=== PATIENT | female | born 1935 | race Caucasian/White ===

== ENCOUNTER 2024-10-31 08:25 | Inpatient (IN) | payer OTHER, SELFPAY ==
[2024-10-29] VITALS (8 sets, daily range): BP systolic 105–135; BP diastolic 51–63
--- NOTE | 2024-10-29 18:44 | ED.GENMED ---
History of Present Illness
General
Chief Complaint: Chest Pain
Source: patient
Exam Limitations: none
Time Seen by Provider: 10/29/24 18:20
Nursing documentation reviewed up to this point in time: agreed with
History of Present Illness
History of Present Illness:
[facility] secondary to sudden onset of chest pain while watching TV this afternoon. Chest pain described as left-sided, pressure-like, nonradiating, without any alleviating or exacerbating factors. Patient states that
her chest pain gradually improved. When medics arrived, patient was given aspirin and nitroglycerin sublingual x 1. Patient unsure if her chest pain had already resolved by the time she received the medication. Denies trauma. Denies recent
illness. Denies recent travel or surgery. Denies back pain. Denies leg pain or swelling. Denies previous history of similar chest pain. Of note, patient states that her 'heart stopped', shortly after hip surgery number of years ago.
Review of Systems
Review of Systems
Allergies reviewed?: Yes
All Other Systems: ROS reviewed and negative except as documented in HPI and ROS
Constitutional: Reports no symptoms
EENT: Reports no symptoms
Respiratory: Reports no symptoms; Denies trouble breathing
Cardiac: Reports chest pain; Denies diaphoresis or palpitations
ABD/GI: Reports no symptoms; Denies vomiting
Musculoskeletal: Reports no symptoms
Skin: Reports no symptoms
Neurological: Reports no symptoms
Phy Exam
Physical Exam
Physical Exam:
Physical Exam
General: no apparent distress, not acutely ill. afebrile
Head: nc/at. eomi
Neck: supple. no meningeal signs.
Heart: s1/s2 regular rate and rhythm
Lungs: no acute respiratory distress. clear bilaterally. chest wall nontender to palpation
Abdomen: normal bowel sounds. not tender.
Neuro: alert and oriented x 3. no focal neurological deficits
Skin: no rash
Psychiatric: well kept. interactive and cooperative
Extremities: no edema. no calf tenderness.
Scores
Heart Score for Chest Pain Patients
STEMI patient?: No
History: Slightly or Non-Suspicious
ECG: Normal
Age: >/= 65 years
Risk Factors: >/= 3 Risk Factors or History of CAD
Troponin: </= Normal Limit
Heart Score for Chest Pain Patients: 4
Heart Score Risk: 20.3% MACE over next 6 weeks
Course
Orders/Labs/Results
Orders:
Orders
10/29/24 17:50
Electrocardiogram (*1) Urgent
Reason for Study: Chest Pain
EKG- Treatment ONCE
10/29/24 18:43
CR Chest - 2 Views Urgent
Comment:
Reason For Exam: cp
10/29/24 19:19
Complete Blood Count/With Diff Urgent
Comprehensive Metabolic Panel Urgent
D-Dimer Urgent
Troponin I Urgent
10/29/24 22:41
Sodium Zirconium Cyclosilicate [Lokelma] 10 gram PO NOW STA
10/29/24 23:00
Flush (0.9% Sodium Chloride) [Flush (Nss)] See Dose Instructions IV PER PROTOCOL
10/29/24 23:59
CARDIOLOGY CONSULT Routine
Consulting Provider: Faye Ramsay
Was physician already notified: No
Reason for consult: chest pain ekg changes
10/30/24 00:00
Admit/Transfer Patient As Directed
Co-Sign Provider:
Level of Care: Observation services
Assign to:: Telemetry
Physician / Group: shagufta dawson
Diagnosis: chest pain unclear, hyperk,ckd3b
Reason for Telemetry: Arrhythmia
Date to Stop Telemetry: 11/02/24
Time to Stop Telemetry: 11:00
Reason for Hospitalization: chest pain unclear, hyperk,ckd3b
Consult Notification Routine
Specialty to Notify: Cardiology
Date consulting provider notified: 10/30/24
Time consulting provider notified: 08:15
Notified:: Provider
Comment: FAYE RAMSAY
WOUND/OSTOMY CONSULT Routine
Reason for Consult: DTI on sacrum
10/30/24 00:01
Code Status As Directed
Resuscitation Status: Do not resuscitate
Reached after discussion with pt or family/Healthcare POA: Yes
Decision communicated with: Per patient
10/30/24 00:03
DNR Bracelet Application ONCE
10/30/24 00:07
PRN Pain Medication Management As Directed
May give lesser potent ordered pain med per pt: Yes
preference::
Protocol:: Medication orders for pain may be administered in a
manner that supports deferring to patient preference
when the pt is:
- Requesting an ordered lesser potent pain medication.
Least to most potent pain medications are defined
as: acetaminophen < NSAID < tramadol < opioids
(morphine, oxycodone, hydromorphone).
- Requesting a lesser dose of the same medication IF
ORDERED.
- Requesting a less intrusive route of administration
if both routes are prescribed by the provider (PO <
IV).
10/30/24 01:35
Acetaminophen [Tylenol] 650 mg PO Q6HPRN PRN
Nitroglycerin Sublingual [Nitrostat (Sublingual)] 0.4 mg SL [id number] PRN
10/30/24 01:35
Activity As Directed
Activity Level: With Assistance
Comment: Uses walker and rollator
Intake/ Output As Directed
Frequency: Per unit guidelines
Old Records Request [Obtain Records] As Directed
Dates of Information to be Released: 2023 present
Type of Information Requested: Discharge Summary
Consults
Radiology Results
Lab Results
H&P
Obtain Records from: [facility]
Vital Signs As Directed
Frequency: Per unit guidelines
Weight As Directed
Frequency: Daily
Pulse Ox/spot Check [RESP] Routine
Quantity: 1
Pt Eval And Treat Routine
Activity Level: With Assistance
DX Deep Vein Thrombosis Video Routine
10/30/24 01:55
Pt Screening Request from Latasha Routine
10/30/24 06:00
EKG [Electrocardiogram (*1)] Urgent
Reason for Study: Abnormal EKG
Echo 2D MMode Color/Doppler IN AM
Reason for Study: chest pain
Cholesterol Lowering
At Your Request: Limited Participation
Cholesterol Lowering: Sodium, 2 Gram
Levothyroxine [Synthroid] 100 mcg PO DAILY @ 0600
10/30/24 06:10
Diphenhydramine [Benadryl] 6.25 mg IV NOW STA
10/30/24 06:42
Cardiovascular Evaluation IN AM
Complete Blood Count/With Diff IN AM
Comprehensive Metabolic Panel IN AM
Cortisol, Random IN AM
Free T4 Routine
Magnesium IN AM
NT-proBNP IN AM
Phos [Phosphorus] IN AM
TSH Reflex To Free T4 IN AM
Troponin I IN AM
10/30/24 08:00
Aspirin Low Dose EC [Aspir Low (Enteric Coated)] 81 mg PO DAILY
Heparin 5,000 units SC Q12
Midodrine [ProAmatine] 5 mg PO BID AT 0800,1700
Polyethylene Glycol Powder [Miralax] 17 grams PO DAILY
Prednisone [Deltasone] 2.5 mg PO DAILY
10/30/24 09:17
STOOL [C difficile Antigen & Toxins] Routine
LESLEE Source: Feces/Stool
Specimen Description:
Date Specimen was Collected: 10/30/24
Time Specimen was Collected: 09:13
Stool Culture Routine
LESLEE Source: Feces/Stool
Specimen Description:
Date Specimen was Collected: 06/26/25
Time Specimen was Collected: 09:13
Stool For WBC Routine
LESLEE Source: Feces/Stool
Specimen Description:
Date Specimen was Collected: 10/30/24
Time Specimen was Collected: 09:13
10/30/24 09:18
MRSA Screen Routine
LESLEE Source: Nose
Specimen Description:
10/30/24 11:11
Wound Care As Directed
Location of Wound: Buttocks/Sacrum
Treatment of Wound: Barrier ointment with incontinence care.
10/30/24 11:14
Specialty Mattress As Directed
Type of Mattress: Static air overlay
10/30/24 12:00
Petrolatum/Mineral Oil [Hydrophor] See Dose Instructions TOPICAL DAILY
10/30/24 13:26
Loperamide [Imodium] 2 mg PO NOW STA
10/30/24 13:27
CT Chest PE Study Urgent
Comment:
Reason For Exam: Chest pain, RV strain on ECHO/ECG
10/30/24 14:14
Troponin I Q6H
10/30/24 19:30
Loperamide [Imodium] 2 mg PO Q6HPRN PRN
10/30/24 20:00
Fidaxomicin [Dificid] 200 mg PO BID
10/30/24 22:00
Docusate Sodium [Colace] 100 mg PO HS
Miconazole Nitrate [Monistat-3 (Miconazole)] 200 mg VAG HS
10/31/24 01:52
Melatonin 5 mg PO NOW STA
10/31/24 07:29
Complete Blood Count/With Diff IN AM
Comprehensive Metabolic Panel IN AM
11/01/24 07:38
Complete Blood Count/With Diff IN AM
11/02/24 11:00
DC Protocol for Telemetry ONCE
Abnormal Lab Results
0610/30/24 10/31/24
19:19 06:42 07:29
RDW 14.6 H % 14.6 H % 14.8 H %
(11.5-14.5) (11.5-14.5) (11.5-14.5)
D-Dimer 0.95 H ug/mlFEU
(0.00-0.50)
Potassium 6.0 H mmol/L
(3.5-5.1)
Chloride 108 H mmol/L 111 H mmol/L 110 H mmol/L
(98-107) (98-107) (98-107)
Carbon Dioxide 20 L mmol/L 16 L mmol/L 19 L mmol/L
(22-30) (22-30) (22-30)
BUN 55 H mg/dl 50 H mg/dl 49 H mg/dl
(7-17) (7-17) (7-17)
Creatinine 1.4 H mg/dL 1.3 H mg/dL 1.4 H mg/dL
(0.6-1.0) (0.6-1.0) (0.6-1.0)
Glucose 106 H mg/dl
(70-99)
Calcium 8.2 L mg/dl 8.1 L mg/dl
(8.4-10.2) (8.4-10.2)
Phosphorus 5.3 H mg/dl
(2.5-4.5)
AST 13 L U/L 12 L U/L 11 L U/L
(14-36) (14-36) (14-36)
TSH (Reflex) 5.93 H uIU/ml
(0.47-4.68)
10/31/24 07:29
10/31/24 07:29
Vital Signs
Initial and Last Documented VS:
Initial Vital Signs
Temp Pulse Resp BP Pulse Ox
98.4 F 58 18 105/57 100
10/29/24 17:47 10/29/24 17:47 10/29/24 17:47 10/29/24 17:47 10/29/24 17:47
Last Documented Vital Signs
Temp Pulse Resp BP Pulse Ox
97.6 F 50 16 110/55 100
11/02/24 11:00 11/02/24 11:00 11/02/24 11:00 11/02/24 11:00 11/02/24 11:00
MDM/Problems Addressed
MDM/Problems Addressed:
Patient with an unremarkable workup in ED and remained chest pain-free during observation. Initial EKG does reveal left bundle branch block, unknown if this is chronic, as patient is new to [facility] and also new to [facility]. With
patient's previous cardiac arrest and other history, patient will require further evaluation and treatment, including potential cardiology consultation. Hyperkalemia noted, which will be treated with Lokelma.
*Pulse Oximetry
SaO2: 100
Oxygen Mode of Delivery: Room air
Patient hypoxic: no
*EKG
Interpreted by ED Provider?: Yes
EKG Intrepretation Date: 10/29/24
Heart Rate: 55
Rate: bradycardiac
Rhythm: sinus
[place]: left axis deviation
QRS Pattern: left bundle branch block
*Critical Care Note
Total Time (30-74mins, 75-104mins- exclusive of procedures): Not Applicable
ED Attending Note
-
Portions of this chart may have been created with voice recognition software.� Occasional wrong word or��sound alike� substitutions may have occurred due to the inherent limitations of voice recognition software.
Discharge Plan
Departure
Patient Disposition: Admit
Date of Disposition: 10/29/24
Time of Disposition: 22:45
Admit to: Telemetry
Presentation/result/management discussed w/ accepting MD/DO: Hospitalist
Discharge Problem:
Chest pain, Hyperkalemia, Abnormal EKG
Interventions
Interventions:
*Risk Screen - Suicide Last Done: 10/29/24 17:47
*General Assessment Last Done: 10/29/24 17:47
*Neglect/Abuse Screening Last Done: 10/29/24 17:47
*ED- Fall Risk Assessment Last Done: 10/29/24 18:49
*ED COVID-19 Vaccine History Last Done: 10/29/24 17:47
*Nursing Disposition Last Done: 10/30/24 01:07
ED- Cardiac Assessment Last Done: 10/29/24 18:44
Discharge Date and Time
Discharge Date/Time: 10/30/24 01:07
[2024-10-29 19:26] LABS: Hematocrit 43.2 % (37.0-47.0); Hemoglobin 14.6 g/dL (12.0-16.0); Mean Corp Hgb Conc. 33.8 g/dL (33.0-37.0); Mean Corpuscular Volume 86.4 fL (81.0-99.0); Nucleated Red Blood Cells % 0 %; Platelet Count 240 10^3/uL (130-400); Red Cell Dist. Width 14.6 % (11.5-14.5)
[2024-10-29 19:38] LABS: D-Dimer 0.95 ug/mlFEU (0.00-0.50)
[2024-10-29 19:39] LABS: ALT (SGPT) < 10 U/L (0-35); AST (SGOT) 13 U/L (14-36); Albumin 4.0 g/dl (3.5-5.0); Alkaline Phosphatase 60 U/L (38-126); Blood Urea Nitrogen 55 mg/dl (7-17); Calcium 8.2 mg/dl (8.4-10.2); Carbon Dioxide 20 mmol/L (22-30); Chloride 108 mmol/L (98-107); Glucose 106 mg/dl (70-99); Potassium 6.0 mmol/L (3.5-5.1); Sodium 137 mmol/L (135-145); Total Protein 7.2 g/dl (6.3-8.2); eGFR 36.41
[2024-10-29 19:50] LABS: Troponin I < 0.012 ng/ml
[2024-10-29] MEDS: LOKELMA 10 GRAM PO (22:45)
--- NOTE | 2024-10-29 23:01 | HPS.HSE ---
Family Physician
-
Family Physician: NOT KNOW UNKNOWN - PT DOES
Chief Complaint
-
Midsternal chest pain with nausea
History of Present Illness
88-year-old female from [facility] who had sudden onset of chest pressure midsternal 8 out of 10 with nausea while watching TV this afternoon. She describes the pain as a midsternal chest pressure nonradiating without any
alleviating or exacerbating factors. She was given nitroglycerin and aspirin by EMS and states the pain went away. She was noted to have left bundle branch block on EKG and to be hyperkalemic with potassium of 6 without any EKG changes in the ER.
There are no old EKGs to compare as patient has never been to [facility]. She does report after hip surgery that her 'heart stopped'. She states that she lived in [facility] and sought treatment at [facility]. She was there
approximately 6 weeks ago then at a [facility] and just moved to [facility] 2 days ago. She is unsure of what she was admitted for however she is oriented to name, place, other past medical history
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
anxiety, dysphagia polymyalgia rheumatica, chronic ambulatory dysfunction/chronic falls, rhabdomyolysis February 2021, chronic constipation/diarrhea
Medical History
Past Medical History
Past Medical History: Reports Other
Additional Past Medical History:
CAD/NM
CKD unknown stage ? 3B
Atrial fibrillation/A-flutter Hx
Bradycardia hx
Orthostatic hypotension
Pulmonary hypertension
Cognitive deficit
Hypothyroidism
Anxiety
Dysphagia
Polymyalgia rheumatica
Chronic ambulatory dysfunction.
Past Surgical History: Reports Other
Additional Past Surgical History:
Left hip replacement December 2020
Social History
Tobacco: Non-smoker
Alcohol: None
Drug: None
Personal:
Living: Assisted Living ([facility])
Employment: Retired
Family History
Family History: Other (Father multiple strokes, NM age 82, mother history of heart disease age 92, brother DM2, cardiac issues, prostate CA, sister renal failure, DM 2, age 89)
Allergies / Home Medications
Allergies reflects when Allergies were last updated in [employer].
Home Medications with original date entered in [employer]
Allergy/Medication List:
Allergies
Allergy/AdvReac Type Severity Reaction Status Date / Time
No Known Allergies Allergy Unverified 10/29/24 17:47
Home Medications
Aspir-81 81 mg PO DAILY 10/29/24
Colace 100 mg PO HS 10/29/24
Miralax 17 g PO DAILY 10/29/24
acetaminophen 650 mg PO Q6H PRN mild pain 10/29/24
levothyroxine 100 mcg tablet 100 mcg PO DAILY 10/29/24
midodrine 5 mg PO BID 10/29/24
prednisone 2.5 mg PO DAILY 10/29/24
Review of Systems
-
History Source: Patient
A 12 point ROS was completed and negative except as noted: Yes
Constitutional: Denies Fever or Fatigue
EENT: Denies Sore Throat or Mouth Swelling
Respiratory: Denies Cough or Trouble Breathing
Cardiac: Reports Chest Pain (Midsternal); Denies Diaphoresis, Palpitations or Syncope
Abdomen/GI: Reports Nausea; Denies Abdominal Pain, Vomiting, Diarrhea or Constipated
: Denies Dysuria, Frequency, Flank Pain, Incontinence or Difficulty Voiding
Musculoskeletal: Reports Edema (Chronic +1 nonpitting bilateral lower legs with chronic plaques and flaking skin overgrown toenails); Denies Joint Pain
Skin: Denies Itching or Rash
Neurological: Denies Dizzy, Headache or Weakness
Endocrine: Reports No Symptoms
Hematologic/Lymphatic: Reports No Symptoms
Psych: Reports Calm
Physical Exam
Vital Signs
Vital Signs
Temp Pulse Resp BP Pulse Ox
98.4 F 60 15 105/63 98
10/29/24 17:47 10/29/24 22:00 10/29/24 22:00 10/29/24 22:00 10/29/24 22:00
Physical Exam
General: Comfortable and Conversant; No Pain, Fever or Chills
HEENT: NormoCephalic, Anicteric, Moist mucous membranes, PERRLA, [place] Conjunctivae and No Ptosis
Respiratory: Clear; No Wheezes, Rales or Rhonchi
Cardiac: S1/S2, Regular Rhythm and Peripheral Edema (Chronic +1 nonpitting bilateral lower legs with chronic plaques and flaking skin overgrown toenails); No Murmur, Rub or Gallop
Breast: Deferred by me
GI: Soft, Non Distended, Normal Bowel Sounds and No Hepatosplenomegaly
Rectal: Deferred by Provider
Genito-urinary: Deferred by me
Musculoskeletal: Clubbing (To all fingernails), No Cyanosis, Edema, Left Lower Extremity and Edema, Right Lower Extremity (Chronic +1 nonpitting bilateral lower legs with chronic plaques and flaking skin overgrown toenails); No Edema, Left Upper
Extremity or Edema, Right Upper Extremity
Skin: Warm and Dry; No Rash
Neuro: AO x 3 (To name, place, president, history except most recent 6 weeks ago), No Motor Deficits (While in bed), Nonfocal/grossly intact, Cranial Nerves Intact and No Sensory Deficits; No Slurred Speech, Facial Droop, Tremors or Sedated
Psych: Calm
Laboratory Results
-
10/29/24 19:19
10/29/24 19:19
Laboratory Results
Total Bilirubin 0.4 mg/dl (0.2-1.3) 10/29/24 19:19
AST 13 U/L (14-36) L 10/29/24 19:19
ALT < 10 U/L (0-35) 10/29/24 19:19
Alkaline Phosphatase 60 U/L (38-126) 10/29/24 19:19
Troponin I < 0.012 ng/ml 10/29/24 19:19
Impression/Plan
-
Impression/plan:
Observation telemetry
#Acute hyperkalemia
K6
Patient given Lokelma 10mg in ER
Repeat BMP
#Chest pain with RBBB? New versus old unclear etiology
#History of cardiac arrest during left hip replacement 2020
Left-sided chest pressure nonradiating was given nitro and aspirin by EMS
Troponin <0.012, will trend
-echo
-nitro prn
- Resume aspirin 81 mg daily
-Check lipid profile
-Check random cortisol rule out adrenal insufficiency
-Obtain records from [facility] in [facility]
EKG: Sinus bradycardia 55 bpm, QTc 482 MS, RBBB, anteroseptal infarct age undetermined,
T wave inversions in anterior, septal/lateral leads
#CKD unknown stage ?3B
Creat 1.4/bun 55
Follow BMP
# Hx orthostatic hypotension
- cont midodrine 5mg bid
#Pulmonary hypertension
# Chronic clubbing to all fingernails
#Atrial fibrillation/A-flutter Hx
on Asa not AC due to fall
#Bradycardia hx
#Cognitive deficit
Patient is oriented to name, place, president but not recent admission approximately 6 weeks ago or reason why
#Hypothyroidism
-Check TSH with free T4 reflex
- Continue levothyroxine 100 mcg p.o. daily
#Anxiety
- No reported meds
#Dysphagia -no difficulty swallowing per patient
- Diet per chart regular thin liquid
#Polymyalgia rheumatica on chronic- prednisone 2.5 mg daily
#Chronic ambulatory dysfunction
History of falls/rhabdo myelosis 2020
- Uses walker and/or rollator at baseline
PT/OT consult
#Chronic constipation/diarrhea
- Last bowel movement yesterday 10/28/2024 prior constipated for 3 days
- Continue MiraLAX 17 g daily and Colace 100 mg at bedtime
DVT prophylaxis
Subcu heparin
DNR per patient
[2024-10-30] VITALS (10 sets, daily range): BP systolic 109–134; BP diastolic 50–80; PULSE 47; BMI 23.8
--- NOTE | 2024-10-30 | W.PN.UPDATE ---
Update Note
Progress Note Update
Patient seen in conjunction with DISTRIBUTION DESIGNER. I agree of examination physical. I concur with assessment and plan listed otherwise.
Briefly, this an 88-year-old with past medical history significant for cardiac arrest during surgery in the remote past, orthostatic hypotension, CKD stage III, hypothyroid, history of atrial fibrillation not currently on anticoagulation or rate
control (risk of fall and on a 81 mg aspirin daily), who presents to the emergency department for a sensation of discomfort that lasted several minutes while she was at the assisted living facility.
Patient was unable to specifically describe her symptoms. She just felt that there was some discomfort in her heart without any radiation and no associated nausea vomiting or diaphoresis. She did not have shortness of breath at the time that she
recalls. She stated lasted until she was in the ambulance and after she had received sublingual nitroglycerin and aspirin. She is currently chest pain-free. Denies any recent episodes of exertional chest pain but she states she has not exerted
herself recently. She denies any prior history of known CAD, no prior cardiac cath or stents. She denies history of CHF. She is a non-smoker. No known history of DVT/PE.
In the emergency department blood pressure was 100/63 pulse of 60 she was satting 98% on room air and afebrile.
Chest x-ray shows a small bilateral pleural effusions. ECG with sinus bradycardia rate of 55 and right bundle branch block with T wave inversions from leads V1 through V5. Troponin was negative. D-dimer was equivocal.
CBC was unremarkable, potassium was 6.0 and bicarb 28 with a BUN/creatinine of 50 and 1.4.
Assessment and plan
Chest discomfort -has nonspecific description from patient but appears to have improved significantly with sublingual nitroglycerin and she does have some signs of ischemia chronically on ECG with T wave inversions in the anterior lateral leads.
Right bundle. No prior ECGs for comparison. No known cardiac history. Patient is a poor historian and had a recent admission for which we have no rationale for the admission on or treatment or outcome. She does appear to have some slight total
body volume overload with bilateral pleural effusions and peripheral edema although the patient herself looks cachectic.
- Admit to telemetry/obs
- Cycle cardiac enzyme
- Sublingual nitroglycerin as needed chest pain
- Status post aspirin full dose, continue aspirin 81 daily
- Check echo in the a.m.
- Cardiovascular panel
- Check BNP
- Obtain records from a recent hospitalization
- Cardiology consult
Hyperkalemia -CKD stage III/IV not on any hyperkalemic medications. No antihypertensives, history of prostatic hypotension
- Status post Lokelma 10 mg
- Telemetry
- Given equivocal volume status, will hold on IV fluids or diuretics at this time
- Check a.m. cortisol for hypercortisolism, patient on chronic prednisone for polymyalgia rheumatica
Consider PT evaluation
DVT prophylaxis�heparin subcu
CODE STATUS- DNR
--- NOTE | 2024-10-30 02:02 | PTCARENOTE ---
pt admitted to rm 338-1 and was pulled over from stretcher to bed. Pt aaox3 but forgetful, VSS, and no c/o pain. Bed alarm placed for safety. Pt oriented to room, call hunter within reach, and plan of care ongoing.
[2024-10-30] MEDS: BENADRYL 6.25 MG IV (06:15)
[2024-10-30 06:52] LABS: Hematocrit 42.7 % (37.0-47.0); Hemoglobin 14.2 g/dL (12.0-16.0); Mean Corp Hgb Conc. 33.3 g/dL (33.0-37.0); Mean Corpuscular Volume 86.4 fL (81.0-99.0); Nucleated Red Blood Cells % 0 %; Platelet Count 246 10^3/uL (130-400); Red Cell Dist. Width 14.6 % (11.5-14.5)
[2024-10-30 07:32] LABS: Troponin I < 0.012 ng/ml
[2024-10-30] MEDS: ASPIR LOW (ENTERIC COATED) 81 MG PO (08:13)
[2024-10-30] MEDS: SYNTHROID 100 MCG PO (08:13)
[2024-10-30] MEDS: DELTASONE 2.5 MG PO (08:13)
[2024-10-30] MEDS: MIRALAX PO (08:13)
[2024-10-30] MEDS: HEPARIN 5000 UNITS SC ×2 (08:14→21:14)
[2024-10-30 08:27] LABS: ALT (SGPT) < 10 U/L (0-35); AST (SGOT) 12 U/L (14-36); Albumin 3.6 g/dl (3.5-5.0); Alkaline Phosphatase 62 U/L (38-126); Blood Urea Nitrogen 50 mg/dl (7-17); Calcium 8.1 mg/dl (8.4-10.2); Carbon Dioxide 16 mmol/L (22-30); Chloride 111 mmol/L (98-107); Estimated Creatinine Clearance 23 ml/min; Glucose 93 mg/dl (70-99); HDL Cholesterol 34 mg/dl; LDL Cholesterol, Calculated 50 mg/dl; Magnesium 2.0 mg/dl (1.6-2.3); Potassium 4.7 mmol/L (3.5-5.1); Sodium 138 mmol/L (135-145); Total Protein 6.5 g/dl (6.3-8.2); Very Low Density Lipoprotein 29 mg/dl (0-30); eGFR 39.80
[2024-10-30 08:42] LABS: Cortisol, Random 11.6 ug/dl
--- NOTE | 2024-10-30 09:08 | CON.CAR ---
Addendum entered and electronically signed by Obie Yanez MD 10/30/24 12:05:
88 yo female with PMH of paroxysmal A fib (no OAC due to falls), orthostatic hypotension, is admitted with diarrhea. There is a report of chest pain. Patient denies chest pain, and reports diarrhea is her main issue. Exam with RRR, no murmurs, no
edema. Tele: SB 50s, brief AIVR. Echo: EF 60-65%, reduced RV fx, mild TR, PASP 45.
Chest pain. She no longer complains of chest pain. TnI <0.012 x2. Echo shows normal LVEF and wall motion. I am not recommended stress test at this time.
RV dysfunction and mild pulm HTN. To discuss with hospitalist team if PE is on ddx.
Please call us back with additional questions.
Original Note:
Consultation
Consultation Request
Date/Time Consultation Requested: 10/29/24 8321
Date/Time Consultation Performed: 10/30/24 3534
Requesting Provider: Ruthie Cunha
Performing Provider: Cristiana BALES for Dr. Yanez
Reason for Consultation: chest discomfort, abnormal EKG
Medical History
-
Chief Complaint: chest discomfort per chart
History of Present Illness:
88 y/o female with AFIB/flutter per chart (not on OAC- per IM note due to fall risk), cardiac arrest during hip surgery (per chart, details unknown), orthostatic hypotension, bradycardia, CKD3B, hypothyroidism, and PMR on steroids who is here from
assisted living for report of CP. Patient does not recall this and denies any CP and tells me she is here for diarrhea (nurse reports she is having diarrhea, which is being tested). Therefore, details unclear. Patient is resting and in no distress
at the time of my assessment. Denies CP or SOB. We are consulted for CP and abnormal EKG. She denies any CP. Trop normal. EKG shows RBBB. Unknown baseline EKG. Hyperkalemia noted on arrival, now resolved.
Past Medical History
Past Medical History: Arrhythmias, Hypothyroidism and Other (as above)
Social History
Living: Assisted Living
Family History
Family History: Reviewed & Not Pertinent
Allergies / Home Medications
Allergy/AdvReac Type Severity Reaction Status Date / Time
No Known Allergies Allergy Unverified 10/29/24 17:47
�Medication �Instructions �Recorded �Confirmed �Type
Aspir-81 81 mg PO DAILY 10/29/24 10/29/24 History
Colace 100 mg PO HS 10/29/24 10/29/24 History
Miralax 17 g PO DAILY 10/29/24 10/29/24 History
acetaminophen 650 mg PO Q6H PRN mild pain 10/29/24 10/29/24 History
levothyroxine 100 mcg tablet 100 mcg PO DAILY 10/29/24 10/29/24 History
midodrine 5 mg PO BID 10/29/24 10/29/24 History
prednisone 2.5 mg PO DAILY 10/29/24 10/29/24 History
Review of Systems
-
History Source: Patient and Other (and chart)
Cardiac: Chest Pain (per chart, patient denies)
Abdomen/GI: Diarrhea
Physical Exam
Vital Signs
Temp Pulse Resp BP Pulse Ox
97.7 F 60 15 112/62 99
10/30/24 07:00 10/30/24 08:13 10/30/24 07:00 10/30/24 08:13 10/30/24 07:00
Lab Results
10/30/24 06:42
10/30/24 06:42
Troponin I < 0.012 ng/ml 10/30/24 06:42
Sct-J-Ghxtvmleeju Pept 2020 pg/ml 10/30/24 06:42
Physical Exam
General: Well Developed and No Apparent Distress
HEENT: Normocephalic and Anicteric
Respiratory: Clear and Non Labored Respirations
Cardiac: Regular Rhythm
Musculoskeletal: No Edema
Skin: Warm and Dry
Neuro: Awake, Alert and Oriented (knew she was in hospital, not which one. Knows name and year, but forgetful)
Psych: Calm
Impression / Plan
-
Chest discomfort:
-patient denies any for me and does not recall that from yesterday, so details unknown
-trops fine so far, one more is pending
-EKG's with RBBB, baseline unknown
-assess echo
Hyperkalemia:
-resolved s/p Lokelma
hx afib/flutter per chart: paroxysmal, details unknown
-in SR, follow telemetry
-not on OAC due to fall risk per IM note
Orthostatic hypotension:
-on midodrine- continue
CKD:
-monitor labs
Records requested by primary team and will be helpful. I did attempt to call daughter to get some more info about patient, but no answer.
Data Reviewed
-
EKG: Tracing Personally Visualized and interpreted (SR with occ PVC's, LAD, RBBB)
Radiology: Report Reviewed by me (CXR: Small bilateral pleural effusions.)
Medical Tests (Nuc Med, Echo etc): Other (echo ordered and pending)
Labs: Labs Reviewed by me
--- NOTE | 2024-10-30 11:00 | WOUNDNOTE ---
Wound Care Instructions
Mineral oil to LE daily
Barrier ointment to buttocks/Sacrum
Air bed
Frequent turning and repositioning
--- NOTE | 2024-10-30 11:03 | WOUNDNOTE ---
WO RN note: Patient admitted with midsternal chest pain with nausea
See H&P for complete history.
PMH: Cardiac arrest, hyperkalemia, Stage 3KD, anxiety, ambulatory dysfunction.
Wound Location and type/assessment: Patient admitted with healed skin to sacrum. Patient reports having had a sacral wound in the past. Upon assessment skin is blanchable and there are no open areas. There is some pink, newly healed skin and some
chronic discoloration. LE with dry skin, likely from past venous drainage. Heels intact.
Appetite: Fair
Pressure redistribution devices in place: Static air overlay, turning schedule, heels off-loaded with pillow or air cushion under calves.
Plan: Patient has been frequently incontinent of stool. Will recommend use of barrier ointment to buttocks and sacrum. Static air overlay placed during assessment. Adhesive foam added to bilateral heels. Mineral oil to dry skin on LE.
Will confirm orders with hospitalist and update nurse. Updated care plan and will follow as needed.
Note to case management of equipment requested for discharge:
Recommend follow up at wound care center upon discharge.
--- NOTE | 2024-10-30 11:08 | WOUNDNOTE ---
BILATERAL LOWER LEGS
[2024-10-30] MEDS: HYDROPHOR 1 APPLIC TOPICAL (12:00)
[2024-10-30] MEDS: IMODIUM 2 MG PO (13:41)
--- NOTE | 2024-10-30 13:57 | W.PN.HOSP.TC ---
Today's Communication/Plan
-
See plan
Assessment / Plan
Assessment / Plan
Impression:
Presentation with intermittent chest pain.
Hyperkalemia.
Loose stools
Other conditions
Cardiac arrest following hip surgery.
Chronic orthostatic hypotension requiring midodrine.
CKD stage IIIa
Hypothyroidism.
History of atrial fibrillation details unknown.
Plan:
Chest pain intermittent.
Patient with no prior history of CAD.
Negative cardiac enzymes.
Noted elevated pro CHF BNP at 2019 (unknown baseline)
ECG with RBBB otherwise nonischemic.
Echocardiogram with LVEF 60-65%. Dilated RV with reduced systolic function, mild TR, PA pressure 45 mmHg.
Discussed with cardiology
At this point no evidence for acute coronary syndrome. No clinical indication for further ischemic evaluation
Given intermittent chest pain, risk factors including immobility, EKG with RBBB and echo with RV strain, we will proceed with CT PE protocol. (D-dimer has been equivocal, with limited reliability in the settings of CKD)
CKD stage III Per records, unknown baseline creatinine
Creatinine improving 1.4�1.3 with hydration.
Noted with normal gap metabolic acidosis likely secondary to GI losses with diarrhea.
Hyperkalemia likely function of above. Not on any hyperkalemic medications. Random cortisol within normal limits
Potassium level improved with hydration. Status post [facility]
Ongoing diarrhea.
Denies abdominal pain
Abdominal examination benign.
Describes recent hospitalization at [place], although limited historian could not provide details.
Stool for C. difficile positive for antigen negative for toxins.
Given persistent symptoms will initiate Dificid and Imodium
Hypothyroidism on replacement
PMR on low-dose of prednisone at 2.5 mg daily
Anticipated Discharge: 24 - 48 hours
Subjective/Interval History
-
Date of Service: October 30, 2024
Objective Data
-
Labs:
Laboratory Results
10/30/24
06:42
WBC 5.1
Hgb 14.2
Hct 42.7
Plt Count 246
Sodium 138
Potassium 4.7
Chloride 111 H
Carbon Dioxide 16 L
BUN 50 H
Creatinine 1.3 H
Glucose 93
Calcium 8.1 L
Total Bilirubin 0.4
AST 12 L
ALT < 10
Alkaline Phosphatase 62
Vital Signs:
Vital Signs
Temp Pulse Resp BP Pulse Ox
97.2 F 56 15 134/59 97
10/30/24 11:45 10/30/24 11:45 10/30/24 11:45 10/30/24 11:45 10/30/24 11:45
I&O
10/29/24 10/30/24 10/31/24
06:59 06:59 06:59
Intake Total 240 / 240
Balance 240 / 240
Physical Exam
-
General: Well Developed and No Apparent Distress
HEENT: Normocephalic, Atraumatic and Moist Mucous Membranes
Respiratory: Clear to Auscultation
Cardiac: Regular Rhythm and S1/S2; Negative Murmur, Rub or Gallop
GI: Soft, Nontender, Nondistended and Normal Bowel Sounds; Negative Organomegaly
Rectal: Deferred by Provider
Musculoskeletal: No Clubbing, No Cyanosis and No Edema
Skin: Negative Rash
Neuro: Nonfocal/Grossly Intact
[2024-10-30 14:47] LABS: Troponin I < 0.012 ng/ml
--- NOTE | 2024-10-30 16:56 | CM ---
Patient confused sleepy . Pt asked if CM would call dgt. LM with dgt Meron. Need IA completed
--- NOTE | 2024-10-30 20:58 | W.PN.UPDATE ---
Update Note
Progress Note Update
Patient complained of vaginal discharge, itchy.
On exam, vaginal area noted with redness and white discharge. Miconazole vaginal suppository x 3 ordered.
[2024-10-30] MEDS: DIFICID 200 MG PO (21:14)
[2024-10-30] MEDS: COLACE 100 MG PO (21:15)
[2024-10-30] MEDS: MONISTAT-3 (MICONAZOLE) 200 MG VAG (22:16)
[2024-10-31] MEDS: MELATONIN 5 MG PO ×2 (02:12→22:16)
[2024-10-31 03:15] VITALS: BP 100/51
[2024-10-31 06:00] VITALS: BMI 24.0
[2024-10-31] MEDS: SYNTHROID 100 MCG PO (06:22)
[2024-10-31 07:49] VITALS: BP 111/43
[2024-10-31 08:07] LABS: Hematocrit 42.0 % (37.0-47.0); Hemoglobin 13.9 g/dL (12.0-16.0); Mean Corp Hgb Conc. 33.1 g/dL (33.0-37.0); Mean Corpuscular Volume 87.1 fL (81.0-99.0); Nucleated Red Blood Cells % 0 %; Platelet Count 258 10^3/uL (130-400); Red Cell Dist. Width 14.8 % (11.5-14.5)
[2024-10-31 08:24] LABS: ALT (SGPT) < 10 U/L (0-35); AST (SGOT) 11 U/L (14-36); Albumin 3.5 g/dl (3.5-5.0); Alkaline Phosphatase 58 U/L (38-126); Blood Urea Nitrogen 49 mg/dl (7-17); Calcium 8.4 mg/dl (8.4-10.2); Carbon Dioxide 19 mmol/L (22-30); Chloride 110 mmol/L (98-107); Estimated Creatinine Clearance 21 ml/min; Glucose 87 mg/dl (70-99); Potassium 5.0 mmol/L (3.5-5.1); Sodium 138 mmol/L (135-145); Total Protein 6.4 g/dl (6.3-8.2); eGFR 36.41
[2024-10-31] MEDS: DIFICID 200 MG PO ×2 (08:31→21:25)
[2024-10-31] MEDS: ASPIR LOW (ENTERIC COATED) 81 MG PO (08:31)
[2024-10-31] MEDS: DELTASONE 2.5 MG PO (08:32)
[2024-10-31] MEDS: HEPARIN 5000 UNITS SC (08:32)
[2024-10-31] MEDS: HYDROPHOR 1 APPLIC TOPICAL (08:32)
[2024-10-31] MEDS: MIRALAX PO (08:33)
--- NOTE | 2024-10-31 10:10 | CM ---
Addendum entered by Theodora Arauz RN 10/31/24 10:22:
[facility]
report [phone]
fax [phone]
Original Note:
Alert awake patient lives at [facility] assisted living where she is assisted with all care.She uses a walker.Spoke with asha Chance Pt recently moved to [facility]. She was initially observation . [facility] letter explained to pt . Today spoke with asha Chance.
Pt changed to inpatient IMM emailed to asha [email or web address] ([email or web address]).Dgt requests pt to return to [facility] at discharge.
No VN in past . No SNF hx
Pharmacy [facility]
PCP Dr Todd Sood
PLAN Return to [facility] at discharge.
[2024-10-31 11:45] VITALS: BP 104/59
--- NOTE | 2024-10-31 12:00 | PTOTSP ---
Dysphagia Evaluation
Patient presents with signs concerning for WFL-mild dysphagia and has risk factors including documented cognitive impairment.
Recommend:
1. IDDSI 7 Regular, Thin
2. Medications as best tolerated
3. Strategies: upright to 90 degrees, pick soft/moist foods from menu and/or use sauces/gravies
4. Brief dysphagia f/u at the acute care level to determine if further diet modification or instrumental swallowing assessment warranted
--- NOTE | 2024-10-31 13:32 | W.PN.HOSP.TC ---
Today's Communication/Plan
-
Pulmonology consultation for possibly symptomatic pleural effusion, pulmonary hypertension, diffuse mucous plugging.
Dificid for persistent C. difficile antigen positive diarrhea.
Assessment / Plan
Assessment / Plan
Impression:
Presentation with intermittent chest pain.
Hyperkalemia.
Loose stools
Other conditions
Cardiac arrest following hip surgery.
Chronic orthostatic hypotension requiring midodrine.
CKD stage IIIa
Hypothyroidism.
History of atrial fibrillation details unknown.
PMR on chronic steroids
Plan:
Chest pain intermittent.
Patient with no prior history of CAD.
Negative cardiac enzymes.
Noted elevated pro CHF BNP at 2020 (unknown baseline)
ECG with RBBB otherwise nonischemic.
Echocardiogram with LVEF 60-65%. Dilated RV with reduced systolic function, mild TR, PA pressure 45 mmHg.
Discussed with cardiology
At this point no evidence for acute coronary syndrome. No clinical indication for further ischemic evaluation
Given intermittent chest pain, risk factors including immobility, EKG with RBBB and echo with RV strain, we will proceed with CT PE protocol. (D-dimer has been equivocal, with limited reliability in the settings of CKD)
CT chest findings with no evidence of pulmonary embolism. Moderate right and small left pleural effusion. Adjacent parenchymal consolidation, atelectasis versus pneumonia. Bronchial wall thickening and endoluminal opacity, consistent with bibasilar
mucous plugging. The associated pulmonary artery segments appear attenuated and diminished in caliber, as opposed to demonstrating focal contrast cutoff as would be expected with focal emboli. This suggests ventilation/perfusion mismatch, with blood
flow redirected away from atelectatic lung.
Stable respiratory status with no clear evidence for acute respiratory infection (has been afebrile with normal white count)
Speech evaluation with no evidence for overt aspiration
Pulmonology evaluation with concern of probably symptomatic right pleural effusion, mucous plugging, pulmonary hypertension with RV dysfunction. Differential diagnosis: Infectious, including chronic silent aspiration, versus malignant.
Check bilateral lower extremity Doppler for completeness
CKD stage III Per records, unknown baseline creatinine
Creatinine stable, plateaued at 1.4
Noted with normal gap metabolic acidosis likely secondary to GI losses with diarrhea.
Hyperkalemia likely function of above. Not on any hyperkalemic medications. Random cortisol within normal limits
Potassium level improved with hydration. Status post Lokelma
Ongoing diarrhea.
Denies abdominal pain
Abdominal examination benign.
Describes recent hospitalization at [place], although limited historian could not provide details.
Stool for C. difficile positive for antigen negative for toxins.
Given persistent symptoms will initiate Dificid and Imodium
Candidal vaginitis
Initiated on antifungal
Hypothyroidism on replacement
PMR on low-dose of prednisone at 2.5 mg daily
Anticipated Discharge: 24 - 48 hours
Subjective/Interval History
-
Date of Service: October 31, 2024
Objective Data
-
Labs:
Laboratory Results
10/31/24
07:29
WBC 4.8
Hgb 13.9
Hct 42.0
Plt Count 258
Sodium 138
Potassium 5.0
Chloride 110 H
Carbon Dioxide 19 L
BUN 49 H
Creatinine 1.4 H
Glucose 87
Calcium 8.4
Total Bilirubin 0.5
AST 11 L
ALT < 10
Alkaline Phosphatase 58
Vital Signs:
Vital Signs
Temp Pulse Resp BP Pulse Ox
97.6 F 46 15 104/59 96
10/31/24 11:45 10/31/24 11:45 10/31/24 11:45 10/31/24 11:45 10/31/24 11:45
I&O
10/30/24 10/31/24 11/01/24
06:59 06:59 06:59
Intake Total 720 / 720
Balance 720 / 720
Physical Exam
-
General: Well Developed and No Apparent Distress
HEENT: Normocephalic, Atraumatic and Moist Mucous Membranes
Respiratory: Clear to Auscultation
Cardiac: Regular Rhythm and S1/S2; Negative Murmur, Rub or Gallop
GI: Soft, Nontender, Nondistended and Normal Bowel Sounds; Negative Organomegaly
Rectal: Deferred by Provider
Musculoskeletal: No Clubbing, No Cyanosis and No Edema
Skin: Negative Rash
Neuro: Nonfocal/Grossly Intact
[2024-10-31 15:57] VITALS: BP 153/71
--- NOTE | 2024-10-31 15:57 | W.PN.UPDATE ---
Update Note
Progress Note Update
Doppler positive for bilateral lower extremity DVT.
Noted with CT scan negative for PE, although reported VQ mismatch possibly due to endobronchial obstruction,? If subsegmental PE
Start anticoagulation with Eliquis.
[2024-10-31 21:10] VITALS: BP 115/57
[2024-10-31] MEDS: COLACE 100 MG PO (21:25)
[2024-10-31] MEDS: ELIQUIS 10 MG PO (21:27)
[2024-10-31] MEDS: MONISTAT-3 (MICONAZOLE) VAG (21:43)
--- NOTE | 2024-10-31 22:49 | CON.PUL ---
Consultation
Consultation Request
Date/Time Consultation Requested: 10/31/2024
Date/Time Consultation Performed: 10/31/2024
Medical History
-
Chief Complaint: Diarrhea, chest discomfort
History of Present Illness:
Patient is a very pleasant 88-year-old with complicated past missed medical history including hip surgery complicated by cardiac arrest, paroxysmal atrial fibrillation, chronic kidney disease, polymyalgia rheumatica on chronic prednisone who had a
long hospitalization at an outside facility, details unavailable, subsequently a long SNF stay and was recently transferred to assisted living over the last 2 days. Reportedly developed the diarrhea, unclear presentation with chest pain as patient
denies chest pain to me. She was brought to the emergency room, ruled out for acute myocardial infarction with serial troponin. Additional workup included echocardiogram, chest CT which were suggestive of bilateral pleural effusion as well as RV
dysfunction. Pulmonary consultation was requested for further input.
Past Medical History
Past Medical History: Reports Other
Additional Past Medical History:
CAD/NE
CKD unknown stage ? 3B
Atrial fibrillation/A-flutter Hx
Bradycardia hx
Orthostatic hypotension
Pulmonary hypertension
Cognitive deficit
Hypothyroidism
Anxiety
Dysphagia
Polymyalgia rheumatica
Chronic ambulatory dysfunction.
Past Surgical History: Reports Other
Additional Past Surgical History:
Left hip replacement December 2020
Social History
Tobacco: Non-smoker
Alcohol: None
Drug: None
Personal:
Living: Assisted Living ([facility])
Employment: Retired
Family History
Family History: Other (Father multiple strokes, NE age 82, mother history of heart disease age 92, brother DM2, cardiac issues, prostate CA, sister renal failure, DM 2, age 89)
Allergies / Home Medications
Allergies / Home Medications
Allergies
Allergy/AdvReac Type Severity Reaction Status Date / Time
No Known Allergies Allergy Unverified 10/29/24 17:47
Home Medications
�Medication �Instructions �Recorded �Confirmed �Last Taken �Type
Aspir-81 81 mg PO DAILY 10/29/24 10/29/24 10/29/24 09:00 History
Colace 100 mg PO HS 10/29/24 10/29/24 10/28/24 21:00 History
Miralax 17 g PO DAILY 10/29/24 10/29/24 10/29/24 09:00 History
acetaminophen 650 mg PO Q6H PRN mild pain 10/29/24 10/29/24 Unknown History
levothyroxine 100 mcg tablet 100 mcg PO DAILY 10/29/24 10/29/24 10/29/24 08:00 History
midodrine 5 mg PO BID 10/29/24 10/29/24 10/29/24 09:00 History
prednisone 2.5 mg PO DAILY 10/29/24 10/29/24 10/29/24 09:00 History
Review of Systems
-
Hematologic/Lymphatic: Other (All 14 systems reviewed and negative except as stated above in the history of present illness.)
Vitals / Labs / Diagnostic Testing
Vital Signs
Temp Pulse Resp BP Pulse Ox
98.0 F 52 16 115/57 97
10/31/24 21:10 10/31/24 21:10 10/31/24 21:10 10/31/24 21:10 10/31/24 21:10
Lab Data
10/31/24 07:29
10/31/24 07:29
Microbiology
10/30/24 09:18 Nose MRSA Screen - Final
No Methicillin Resistant Staphylococcus aureus isolated.
10/30/24 09:17 Feces/Stool Salmonella/Shigella Culture - Preliminary
Culture in Progress
10/30/24 09:17 Feces/Stool Campylobacter Culture - Preliminary
Culture in Progress
10/30/24 09:17 Feces/Stool Stool Leukocytes - Final
10/30/24 09:17 Feces/Stool C. difficile GDH Antigen & Toxins - Final
C. difficile antigen positive, toxin negative.
Clostridium difficile present, but toxin not detected.
Patient may be a carrier, colonized with nontoxinogenic
strain or the level of toxin in sample is below detection
limits. This information should be used in conjunction with
the patient's clinical history.
Diagnostic Testing:
Physical Exam
-
HEENT: Normocephalic
Cardiovascular: S1/S2 and Peripheral Edema (1+ edema bilaterally)
Respiratory: Other (Few inspiratory crackles in the posterior bases)
GI: Soft and Non Distended
Neurology: Awake and Alert
Skin: Warm
General: Comfortable
Assessment
-
#1. B/L Pleural effusions, L>R
- ?related to volume overload with HFpEF
- Bilateral effusions, pedal edema on exam, Orthopnea, BNP elevated at 2020, all point to CHF decompensation
- Start Lasix 20 mg IV daily
- Monitor response to diuretics. Currently saturation well on room air, hold off Thoracentesis for now, re-evaluate in coming days.
#2. B/L Compressive atelectasis vs pneumonia, due to pleural effusions
- Afebrile, normal WBC count, denies cough or expectoration. Pneumonia felt to be less likely
- Monitor off antibiotics for now
#3. DVT, suspect related to recent hospital stay and essentially bed bound status
- Hemodynamically stable
- Eliquis for now.
#4. Pulmonary HTN
- PASP 45 on ECHO with RV dilated and reduced systolic function
- With elevated BNP, volume overload, group II PH in differential diagnosis.
- Keep O2 sats above 90%, maintain euvolemia
- No obvious pulmonary embolism noted, new diagnosis of DVT, VQ mismatch with CHF still in differential diagnosis, can be pursued as outpatient
- Overall at age 88, will favor conservative management with target euvolemia and normal oxygen saturation. Depending upon clinical course, may consider right heart catheterization
- Patient has never smoked, low pretest probability of underlying obstructive airway disease. ESS score is low, making obstructive sleep apnea unlikely. Can pursue formal pulmonary function testing as outpatient
Other medical diagnoses:
- DVT. on Eliquis now
- CKD stage III
- Hypothyroidism
- History of polymyalgia rheumatica, chronically on steroids
- Paroxysmal atrial fibrillation
- History of hip fracture, surgery complicated by cardiac arrest
- Diarrhea
Total time spent on this consultation/encounter 65____ minutes which includes review of history, physical exam, medications, laboratory data, personal review of imaging, extensive review of outpatient records, discussion with care team and
respiratory therapy.
Data:
ECHO 10/2024: Normal LV size and function with no wall motion abnormalities.
LVEF is 60-65% by visual estimation.
Dilated RV with reduced systolic function.
Mild tricuspid regurgitation.
Estimated pulmonary artery pressure of 45 mmHg assuming a right atrial pressure
of 3 mmHg.
No prior study available for comparison.
CT-PE 10/2024: No definite evidence for pulmonary embolism.
Moderate right and small left pleural effusion. Adjacent parenchymal consolidation, atelectasis versus pneumonia. Bronchial wall thickening and endoluminal opacity, consistent with bibasilar mucous plugging. The associated pulmonary artery segments
appear attenuated and diminished in caliber, as opposed to demonstrating focal contrast cutoff as would be expected with focal emboli. This suggests ventilation/perfusion mismatch, with blood flow redirected away from atelectatic lung.
Pulmonary artery branching order level of the most proximal pulmonary embolism: N/A
Findings suggest elevated right-sided heart pressure and/or tricuspid insufficiency.
[2024-10-31 23:00] VITALS: BP 98/58
[2024-10-31] MEDS: LASIX IV (23:45)
[2024-11-01 03:00] VITALS: BP 121/46
[2024-11-01] MEDS: SYNTHROID 100 MCG PO (05:53)
[2024-11-01 06:00] VITALS: BMI 24.0
[2024-11-01 07:25] VITALS: BP 128/46
[2024-11-01 08:17] LABS: Hematocrit 39.0 % (37.0-47.0); Hemoglobin 13.5 g/dL (12.0-16.0); Mean Corp Hgb Conc. 34.6 g/dL (33.0-37.0); Mean Corpuscular Volume 84.6 fL (81.0-99.0); Nucleated Red Blood Cells % 0 %; Platelet Count 158 10^3/uL (130-400); Red Cell Dist. Width 14.6 % (11.5-14.5)
[2024-11-01] MEDS: DIFICID 200 MG PO ×2 (09:01→20:11)
[2024-11-01] MEDS: DELTASONE 2.5 MG PO (09:03)
[2024-11-01] MEDS: ELIQUIS 10 MG PO ×2 (09:03→20:11)
[2024-11-01] MEDS: ASPIR LOW (ENTERIC COATED) 81 MG PO (09:04)
[2024-11-01] MEDS: LASIX 20 MG IV (09:04)
[2024-11-01] MEDS: MIRALAX PO (09:05)
[2024-11-01] MEDS: HYDROPHOR 1 APPLIC TOPICAL (09:06)
[2024-11-01 11:16] VITALS: BP 124/49
[2024-11-01 13:49] LABS: ALT (SGPT) < 10 U/L (0-35); AST (SGOT) 10 U/L (14-36); Albumin 3.8 g/dl (3.5-5.0); Alkaline Phosphatase 61 U/L (38-126); Blood Urea Nitrogen 47 mg/dl (7-17); Calcium 8.4 mg/dl (8.4-10.2); Carbon Dioxide 21 mmol/L (22-30); Chloride 106 mmol/L (98-107); Estimated Creatinine Clearance 20 ml/min; Glucose 87 mg/dl (70-99); Potassium 4.8 mmol/L (3.5-5.1); Sodium 137 mmol/L (135-145); Total Protein 6.9 g/dl (6.3-8.2); eGFR 33.52
--- NOTE | 2024-11-01 14:20 | W.PN.HOSP.TC ---
Addendum entered and electronically signed by Moris Wheeler MD 11/01/24 17:22:
correction: ?C.Diff on Dificid
Original Note:
Today's Communication/Plan
-
DVT on Eliquis 10 mg q12h to continue
?C.Diff on Eliquis
Assessment / Plan
Assessment / Plan
Impression:
Presentation with intermittent chest pain. Currently denies active chest pain
Hyperkalemia.
Loose stools
Other conditions
Cardiac arrest following hip surgery.
Chronic orthostatic hypotension requiring midodrine.
CKD stage IIIa
Hypothyroidism.
History of atrial fibrillation details unknown.
PMR on chronic steroids
Plan:
Chest pain intermittent.
Patient with no prior history of CAD.
Negative cardiac enzymes.
Noted elevated pro CHF BNP at 2019 (unknown baseline)
ECG with RBBB otherwise nonischemic.
Echocardiogram with LVEF 60-65%. Dilated RV with reduced systolic function, mild TR, PA pressure 45 mmHg.
Discussed with cardiology
At this point no evidence for acute coronary syndrome. No clinical indication for further ischemic evaluation
Given intermittent chest pain, risk factors including immobility, EKG with RBBB and echo with RV strain, we will proceed with CT PE protocol. (D-dimer has been equivocal, with limited reliability in the settings of CKD)
CT chest findings with no evidence of pulmonary embolism. Moderate right and small left pleural effusion. Adjacent parenchymal consolidation, atelectasis versus pneumonia. Bronchial wall thickening and endoluminal opacity, consistent with bibasilar
mucous plugging. The associated pulmonary artery segments appear attenuated and diminished in caliber, as opposed to demonstrating focal contrast cutoff as would be expected with focal emboli. This suggests ventilation/perfusion mismatch, with blood
flow redirected away from atelectatic lung.
Stable respiratory status with no clear evidence for acute respiratory infection (has been afebrile with normal white count)
Speech evaluation with no evidence for overt aspiration
Pulmonology evaluation with concern of probably symptomatic right pleural effusion, mucous plugging, pulmonary hypertension with RV dysfunction. Differential diagnosis: Infectious, including chronic silent aspiration, versus malignant.
bilateral lower extremity Doppler: Nonocclusive thrombus is present in the proximal right femoral vein with occlusive thrombus in the mid right femoral vein and nonocclusive thrombus in the distal right femoral vein. Nonocclusive thrombus is also
present in the right popliteal and peroneal veins. The right posterior tibial vein is patent.
On the left, nonocclusive thrombus in the left popliteal vein. The left common femoral, femoral, peroneal, and posterior tibial veins are patent. The proximal left greater saphenous vein is patent.
CKD stage III Per records, unknown baseline creatinine
Creatinine stable, plateaued at 1.4
Noted with normal gap metabolic acidosis likely secondary to GI losses with diarrhea.
Hyperkalemia likely function of above. Not on any hyperkalemic medications. Random cortisol within normal limits
Potassium level improved with hydration. Status post [facility]
K 6.0-->4.7-->5.0-->4.8
Ongoing diarrhea.
Denies abdominal pain
Abdominal examination benign.
Describes recent hospitalization at [place], although limited historian could not provide details.
Stool for C. difficile positive for antigen negative for toxins.
Given persistent symptoms will initiate Dificid and Imodium
Candidal vaginitis
Initiated on antifungal
Hypothyroidism on replacement
PMR on low-dose of prednisone at 2.5 mg daily
Anticipated Discharge: > 48 hours
Subjective/Interval History
-
Date of Service: November 01, 2024
Eating, no diarrhea as per nurse
Objective Data
-
Labs:
Laboratory Results
11/01/24 11/01/24
07:38 13:30
WBC 4.8
Hgb 13.5
Hct 39.0
Plt Count 158 D
Sodium Cancelled 137
Potassium Cancelled 4.8
Chloride Cancelled 106
Carbon Dioxide Cancelled 21 L
BUN Cancelled 47 H
Creatinine Cancelled 1.5 H
Glucose Cancelled 87
Calcium Cancelled 8.4
Total Bilirubin Cancelled 0.5
AST Cancelled 10 L
ALT Cancelled < 10
Alkaline Phosphatase Cancelled 61
Vital Signs:
Vital Signs
Temp Pulse Resp BP Pulse Ox
97.3 F 42 16 124/49 100
11/01/24 11:16 11/01/24 11:16 11/01/24 11:16 11/01/24 11:16 11/01/24 11:16
I&O
10/31/24 11/01/24 11/02/24
06:59 06:59 06:59
Intake Total 720 / 720 320 / 460 140 / 140
Balance 720 / 720 320 / 460 140 / 140
Review of Systems
-
History Source: Patient and Coordinated Provider
EENT: Reports No Symptoms Reported
Respiratory: Reports No Symptoms
Cardiac: Reports No Symptoms; Denies Chest Pain
Abdomen/GI: Denies Abdominal Pain, Nausea, Vomiting or Diarrhea
Physical Exam
-
General: Well Developed, Well Nourished, No Apparent Distress and Appears Chronically Ill
HEENT: Normocephalic, Atraumatic and Moist Mucous Membranes
Respiratory: Clear to Auscultation; Negative Wheezes, Rales or Rhonchi
Cardiac: Regular Rhythm and S1/S2
GI: Soft, Nontender and Nondistended
[2024-11-01 15:24] VITALS: BP 100/48
--- NOTE | 2024-11-01 15:38 | W.PN.PUL3 ---
Today's Communication / Plan
-
Continue Eliquis
Continue Dificid
Up OOB as tolerated
IV Lasix, trending I/O + UOP
Maintain SaO2 >90-94%
CXR on Sunday to re-assess pulmonary parenchyma
Pulmonary service will continue to follow along
Assessment
-
#1. B/L Pleural effusions, L>R due to acute decompensated heart failure
- Bilateral effusions, pedal edema on exam, Orthopnea, BNP elevated at 2019, all point to CHF decompensation
- Continue Lasix 20 mg IV daily
- Monitor response to diuretics. Currently saturation well on room air, hold off Thoracentesis for now, re-evaluate in coming days - repeat CXR on Sunday
#2. B/L Compressive atelectasis vs pneumonia, due to pleural effusions; possible left lower lobe pneumonia
- Afebrile, normal WBC count, denies cough or expectoration. Pneumonia felt to be less likely
- Monitor off antibiotics for now
- There appears to be possible mucous plugging in the bases, as CTA chest shows peripheral bronchial endoluminal opacification - difficult to say as she has bronchiolar thickening and bibasilar pleural effusions with compressive atelectasis. She
will need a repeat CT chest once she is euvolemic to assure that this finding improves.
#3. Bilateral nonocclusive lower extremity DVT, suspect related to recent hospital stay and essentially bed bound status
- Hemodynamically stable
- CTA chest on 10/30/2024 was negative for an acute PE; interestingly, her echo on 10/30/2024 shows a dilated RV with reduced systolic function, and PASP 45 mmHg; no prior TTE to compare to
- Eliquis for now with loading dose 10mg BID x 7 days, then 5mg BID after that
- Recommend outpatient hematology evaluation for hypercoagulable workup and discussion regarding duration of AC
#4. Pulmonary HTN
- PASP 45 on ECHO with RV dilated and reduced RV systolic function
- With elevated BNP, volume overload, group II PH in differential diagnosis.
- Keep O2 sats above 90%, maintain euvolemia
- No obvious pulmonary embolism noted, new diagnosis of DVT, VQ mismatch with CHF still in differential diagnosis, can be pursued as outpatient
- Overall at age 88, will favor conservative management with target euvolemia and normal oxygen saturation. Depending upon clinical course, may consider right heart catheterization
- Patient has never smoked, low pretest probability of underlying obstructive airway disease; Can pursue formal pulmonary function testing as outpatient. ESS score is low, making obstructive sleep apnea unlikely.
Other medical diagnoses:
- DVT. on Eliquis now
- CKD stage III
- Hypothyroidism
- History of polymyalgia rheumatica, chronically on steroids
- Paroxysmal atrial fibrillation
- History of hip fracture, surgery complicated by cardiac arrest
- Diarrhea -with positive C. difficile antigen but negative toxin � currently on for maximized
Pulmonary service will continue to follow along
Total time spent on this consultation/encounter 36____ minutes which includes review of history, physical exam, medications, laboratory data, personal review of imaging, extensive review of outpatient records, discussion with care team and
respiratory therapy.
Data:
ECHO 10/2024: Normal LV size and function with no wall motion abnormalities.
LVEF is 60-65% by visual estimation.
Dilated RV with reduced systolic function.
Mild tricuspid regurgitation.
Estimated pulmonary artery pressure of 45 mmHg assuming a right atrial pressure
of 3 mmHg.
No prior study available for comparison.
CT-PE 10/2024: No definite evidence for pulmonary embolism.
Moderate right and small left pleural effusion. Adjacent parenchymal consolidation, atelectasis versus pneumonia. Bronchial wall thickening and endoluminal opacity, consistent with bibasilar mucous plugging. The associated pulmonary artery segments
appear attenuated and diminished in caliber, as opposed to demonstrating focal contrast cutoff as would be expected with focal emboli. This suggests ventilation/perfusion mismatch, with blood flow redirected away from atelectatic lung.
Pulmonary artery branching order level of the most proximal pulmonary embolism: N/A
Findings suggest elevated right-sided heart pressure and/or tricuspid insufficiency.
Subjective Data
-
Date of Service:
Date of Service: November 01, 2024
Chief Complaint: Pulmonary Follow Up
Subjective:
Patient was seen and evaluated today at bedside. Currently on room air breathing comfortably, saturating 97%. She is upset because she is getting blood draws and she was crying. I was able to calm her down. She otherwise is breathing well,
denies chest pain, MARIN, nausea, fevers or chills.
Review of Systems
General: Other (Negative unless mentioned above)
Objective Data
Data Reviewed
Vital Signs / I&O / Oxygen:
Vital Signs
Temp Pulse Resp BP Pulse Ox
97.8 F 46 17 128/46 96
11/01/24 07:25 11/01/24 07:25 11/01/24 07:25 11/01/24 07:25 11/01/24 07:25
Intake and Output
10/31/24 11/01/24 11/02/24
06:59 06:59 06:59
Intake Total 720 / 720 320 / 460 140 / 140
Balance 720 / 720 320 / 460 140 / 140
SaO2 96
Physical Exam
General: Respiratory Distress (negative), Chills (negative) and Sweats (negative)
HEENT: Normocephalic and Anicteric
Cardiovascular: S1-S2 and Peripheral Edema (negative)
Respiratory: Wheeze (negative), Crackles (Bibasilar), Rhonchi (negative) and Non-Labored Respirations
GI: Soft, Non Distended, Non Tender and Normal Bowel Sounds
Neurology: Awake, Alert and Tremors (negative)
Skin: Warm, Dry, Cyanosis (negative) and Jaundice (negative)
Labs/Micro/Reports
Lab Data
11/01/24 07:38
Microbiology
10/30/24 09:17 Feces/Stool Salmonella/Shigella Culture - Final
No Salmonella, Shigella, Aeromonas or Plesiomonas species
isolated.
10/30/24 09:17 Feces/Stool Campylobacter Culture - Final
No Campylobacter species isolated.
10/30/24 09:17 Feces/Stool Stool Leukocytes - Final
10/30/24 09:18 Nose MRSA Screen - Final
No Methicillin Resistant Staphylococcus aureus isolated.
10/30/24 09:17 Feces/Stool C. difficile GDH Antigen & Toxins - Final
C. difficile antigen positive, toxin negative.
Clostridium difficile present, but toxin not detected.
Patient may be a carrier, colonized with nontoxinogenic
strain or the level of toxin in sample is below detection
limits. This information should be used in conjunction with
the patient's clinical history.
[2024-11-01 19:00] VITALS: BP 82/48
[2024-11-01] MEDS: MONISTAT-3 (MICONAZOLE) VAG (20:11)
[2024-11-01] MEDS: COLACE PO (20:11)
[2024-11-01] MEDS: MELATONIN 5 MG PO (20:12)
[2024-11-01 23:00] VITALS: BP 99/60
[2024-11-02] VITALS (7 sets, daily range): BP systolic 89–125; BP diastolic 53–86; BMI 26.1
[2024-11-02] MEDS: SYNTHROID 100 MCG PO (05:30)
[2024-11-02 08:11] LABS: Hematocrit 43.9 % (37.0-47.0); Hemoglobin 14.6 g/dL (12.0-16.0); Mean Corp Hgb Conc. 33.3 g/dL (33.0-37.0); Mean Corpuscular Volume 86.8 fL (81.0-99.0); Nucleated Red Blood Cells % 0 %; Platelet Count 205 10^3/uL (130-400); Red Cell Dist. Width 14.7 % (11.5-14.5)
[2024-11-02 08:19] LABS: Blood Urea Nitrogen 51 mg/dl (7-17); Calcium 8.0 mg/dl (8.4-10.2); Carbon Dioxide 17 mmol/L (22-30); Chloride 108 mmol/L (98-107); Estimated Creatinine Clearance 24 ml/min; Glucose 85 mg/dl (70-99); Potassium 4.9 mmol/L (3.5-5.1); Sodium 136 mmol/L (135-145); eGFR 36.41
[2024-11-02] MEDS: DIFICID 200 MG PO ×2 (08:32→20:19)
[2024-11-02] MEDS: ASPIR LOW (ENTERIC COATED) 81 MG PO (08:32)
[2024-11-02] MEDS: ELIQUIS 10 MG PO ×2 (08:33→20:19)
[2024-11-02] MEDS: LASIX 20 MG IV (08:34)
[2024-11-02] MEDS: DELTASONE 2.5 MG PO (08:34)
[2024-11-02] MEDS: MIRALAX 17 GRAMS PO (08:34)
[2024-11-02] MEDS: HYDROPHOR 1 APPLIC TOPICAL (08:37)
--- NOTE | 2024-11-02 12:53 | CHAP ---
Roberto was a bit anxious at first, but she responded to caring words and welcomed prayer. Emotional and spiritual support provided.
--- NOTE | 2024-11-02 14:19 | W.PN.HOSP.TC ---
Today's Communication/Plan
-
await further input from Pulmnary
Assessment / Plan
Assessment / Plan
Impression:
Presentation with intermittent chest pain. Currently denies active chest pain
Hyperkalemia.
resolved
Loose stools
Other conditions
Cardiac arrest following hip surgery.
Chronic orthostatic hypotension requiring midodrine.
CKD stage IIIa
Hypothyroidism.
History of atrial fibrillation details unknown.
PMR on chronic steroids
Plan:
Chest pain intermittent.
Patient with no prior history of CAD.
Negative cardiac enzymes.
Noted elevated pro CHF BNP at 2020 (unknown baseline)
ECG with RBBB otherwise nonischemic.
Echocardiogram with LVEF 60-65%. Dilated RV with reduced systolic function, mild TR, PA pressure 45 mmHg.
Discussed with cardiology
At this point no evidence for acute coronary syndrome. No clinical indication for further ischemic evaluation
Given intermittent chest pain, risk factors including immobility, EKG with RBBB and echo with RV strain, we will proceed with CT PE protocol. (D-dimer has been equivocal, with limited reliability in the settings of CKD)
CT chest findings with no evidence of pulmonary embolism. Moderate right and small left pleural effusion. Adjacent parenchymal consolidation, atelectasis versus pneumonia. Bronchial wall thickening and endoluminal opacity, consistent with bibasilar
mucous plugging. The associated pulmonary artery segments appear attenuated and diminished in caliber, as opposed to demonstrating focal contrast cutoff as would be expected with focal emboli. This suggests ventilation/perfusion mismatch, with blood
flow redirected away from atelectatic lung.
Stable respiratory status with no clear evidence for acute respiratory infection (has been afebrile with normal white count)
Speech evaluation with no evidence for overt aspiration
Pulmonology evaluation with concern of probably symptomatic right pleural effusion, mucous plugging, pulmonary hypertension with RV dysfunction. Differential diagnosis: Infectious, including chronic silent aspiration, versus malignant.
bilateral lower extremity Doppler: Nonocclusive thrombus is present in the proximal right femoral vein with occlusive thrombus in the mid right femoral vein and nonocclusive thrombus in the distal right femoral vein. Nonocclusive thrombus is also
present in the right popliteal and peroneal veins. The right posterior tibial vein is patent.
On the left, nonocclusive thrombus in the left popliteal vein. The left common femoral, femoral, peroneal, and posterior tibial veins are patent. The proximal left greater saphenous vein is patent.
CKD stage III Per records, unknown baseline creatinine
Creatinine stable, plateaued at 1.4
Noted with normal gap metabolic acidosis likely secondary to GI losses with diarrhea.
Hyperkalemia likely function of above. Not on any hyperkalemic medications. Random cortisol within normal limits
Potassium level improved with hydration. Status post [facility]
K 6.0-->4.7-->5.0-->4.8
Ongoing diarrhea.
Denies abdominal pain
Abdominal examination benign.
Describes recent hospitalization at [place], although limited historian could not provide details.
Stool for C. difficile positive for antigen negative for toxins.
Given persistent symptoms will initiate Dificid and Imodium
Candidal vaginitis
Initiated on antifungal
Hypothyroidism on replacement
PMR on low-dose of prednisone at 2.5 mg daily
Anticipated Discharge: 24 - 48 hours
Subjective/Interval History
-
Date of Service: November 02, 2024
Denies chest pain currently
Objective Data
-
Labs:
Laboratory Results
11/02/24
08:00
WBC 5.3
Hgb 14.6
Hct 43.9
Plt Count 205 D
Sodium 136
Potassium 4.9
Chloride 108 H
Carbon Dioxide 17 L
BUN 51 H
Creatinine 1.4 H
Glucose 85
Calcium 8.0 L
Vital Signs:
Vital Signs
Temp Pulse Resp BP Pulse Ox
97.6 F 50 16 110/55 100
11/02/24 11:00 11/02/24 11:00 11/02/24 11:00 11/02/24 11:00 11/02/24 11:00
I&O
11/01/24 11/02/24 11/03/24
06:59 06:59 06:59
Intake Total 320 / 460 710 / 710 480 / 480
Balance 320 / 460 710 / 710 480 / 480
Review of Systems
-
History Source: Patient and Coordinated Provider
EENT: Reports No Symptoms Reported
Respiratory: Reports No Symptoms
Cardiac: Reports No Symptoms; Denies Chest Pain
Abdomen/GI: Denies Abdominal Pain, Nausea, Vomiting or Diarrhea
Physical Exam
-
General: Well Developed, Well Nourished, No Apparent Distress and Appears Chronically Ill
HEENT: Normocephalic, Atraumatic and Moist Mucous Membranes
Respiratory: Clear to Auscultation; Negative Wheezes, Rales or Rhonchi
Cardiac: Regular Rhythm and S1/S2
GI: Soft, Nontender and Nondistended
Musculoskeletal: Other (chronic stasis dermatitis)
--- NOTE | 2024-11-02 14:45 | W.PN.PUL3 ---
Today's Communication / Plan
-
Continue Eliquis
Continue Dificid
Up OOB as tolerated
IV Lasix, trending I/O + UOP
Maintain SaO2 >90-94%
CXR tomorrow to re-assess pulmonary parenchyma
She is deconditioned - needs PT rec'd skilled rehab; OT consulted
Pulmonary service will continue to briefly follow along
Assessment
-
#1. B/L Pleural effusions, L>R due to acute decompensated heart failure
- Bilateral effusions, pedal edema on exam, Orthopnea, BNP elevated at 2019, all point to CHF decompensation
- Continue Lasix 20 mg IV daily
- Monitor response to diuretics. Currently saturation well on room air, hold off Thoracentesis for now, re-evaluate in coming days - repeat CXR on Sunday
#2. B/L Compressive atelectasis vs pneumonia, due to pleural effusions; possible left lower lobe pneumonia
- Afebrile, normal WBC count, denies cough or expectoration. Pneumonia felt to be less likely
- Monitor off antibiotics for now
- There appears to be possible mucous plugging in the bases, as CTA chest shows peripheral bronchial endoluminal opacification - difficult to say as she has bronchiolar thickening and bibasilar pleural effusions with compressive atelectasis. She
will need a repeat CT chest once she is euvolemic to assure that this finding improves.
#3. Bilateral nonocclusive lower extremity DVT, suspect related to recent hospital stay and essentially bed bound status
- Hemodynamically stable
- CTA chest on 10/30/2024 was negative for an acute PE; interestingly, her echo on 10/30/2024 shows a dilated RV with reduced systolic function, and PASP 45 mmHg; no prior TTE to compare to
- Eliquis for now with loading dose 10mg BID x 7 days, then 5mg BID after that
- Recommend outpatient hematology evaluation for hypercoagulable workup and discussion regarding duration of AC
#4. Pulmonary HTN
- PASP 45 on ECHO with RV dilated and reduced RV systolic function
- With elevated BNP, volume overload, group II PH in differential diagnosis.
- Keep O2 sats above 90%, aim for euvolemia
- No obvious pulmonary embolism noted, new diagnosis of DVT, VQ mismatch with CHF still in differential diagnosis, can be pursued as outpatient
- Overall at age 88, will favor conservative management with target euvolemia and normal oxygen saturation. Depending upon clinical course, may consider right heart catheterization
- Patient has never smoked, low pretest probability of underlying obstructive airway disease; Can pursue formal pulmonary function testing as outpatient. ESS score is low, making obstructive sleep apnea unlikely.
Other medical diagnoses:
- DVT. on Eliquis now
- CKD stage III
- Hypothyroidism
- History of polymyalgia rheumatica, chronically on steroids
- Paroxysmal atrial fibrillation
- History of hip fracture, surgery complicated by cardiac arrest
- Diarrhea -with positive C. difficile antigen but negative toxin � currently on for maximized
Pulmonary service will continue to briefly follow along; repeat CXR tomorrow. Outpatient pulmonary office follow-up will be arranged.
Total time spent on this consultation/encounter 41____ minutes which includes review of history, physical exam, medications, laboratory data, personal review of imaging, extensive review of outpatient records, discussion with care team and
respiratory therapy.
Data:
ECHO 10/2024: Normal LV size and function with no wall motion abnormalities.
LVEF is 60-65% by visual estimation.
Dilated RV with reduced systolic function.
Mild tricuspid regurgitation.
Estimated pulmonary artery pressure of 45 mmHg assuming a right atrial pressure
of 3 mmHg.
No prior study available for comparison.
CT-PE 10/2024: No definite evidence for pulmonary embolism.
Moderate right and small left pleural effusion. Adjacent parenchymal consolidation, atelectasis versus pneumonia. Bronchial wall thickening and endoluminal opacity, consistent with bibasilar mucous plugging. The associated pulmonary artery segments
appear attenuated and diminished in caliber, as opposed to demonstrating focal contrast cutoff as would be expected with focal emboli. This suggests ventilation/perfusion mismatch, with blood flow redirected away from atelectatic lung.
Pulmonary artery branching order level of the most proximal pulmonary embolism: N/A
Findings suggest elevated right-sided heart pressure and/or tricuspid insufficiency.
Subjective Data
-
Date of Service:
Date of Service: November 02, 2024
Chief Complaint: Pulmonary Follow Up
Subjective:
Patient was seen and evaluated earlier this afternoon (late note entry). Currently on room air breathing comfortably, saturating 97%. She says that she is breathing better today. Currently denies shortness of breath and had no shortness of breath
overnight. Eager to be discharged back to her assisted living, she says. Currently denies MARIN, abdominal pain, nausea, fevers or chills. She is mainly tired of being stuck for blood draws. She also would like to get up out of bed.
Review of Systems
General: Other (Negative unless mentioned above)
Objective Data
Data Reviewed
Vital Signs / I&O / Oxygen:
Vital Signs
Temp Pulse Resp BP Pulse Ox
97.5 F 50 17 105/62 100
11/02/24 07:00 11/02/24 07:00 11/02/24 07:00 11/02/24 07:00 11/02/24 07:00
Intake and Output
11/01/24 11/02/24 11/03/24
06:59 06:59 06:59
Intake Total 320 / 460 710 / 710 480 / 480
Balance 320 / 460 710 / 710 480 / 480
SaO2 100
Physical Exam
General: Respiratory Distress (negative), Comfortable, Chills (negative) and Sweats (negative)
HEENT: Normocephalic and Anicteric
Cardiovascular: S1-S2 and Peripheral Edema (negative)
Respiratory: Wheeze (negative), Crackles (negative), Rhonchi ([place] upon expiration bilaterally), Non-Labored Respirations and Other (Diminished breath sounds overall)
GI: Soft, Non Distended, Non Tender and Normal Bowel Sounds
Neurology: Awake, Alert and Tremors (negative)
Skin: Warm, Dry, Cyanosis (negative) and Jaundice (negative)
Labs/Micro/Reports
Lab Data
11/02/24 08:00
11/02/24 08:00
Microbiology
10/30/24 09:17 Feces/Stool Salmonella/Shigella Culture - Final
No Salmonella, Shigella, Aeromonas or Plesiomonas species
isolated.
10/30/24 09:17 Feces/Stool Campylobacter Culture - Final
No Campylobacter species isolated.
10/30/24 09:17 Feces/Stool Stool Leukocytes - Final
10/30/24 09:18 Nose MRSA Screen - Final
No Methicillin Resistant Staphylococcus aureus isolated.
10/30/24 09:17 Feces/Stool C. difficile GDH Antigen & Toxins - Final
C. difficile antigen positive, toxin negative.
Clostridium difficile present, but toxin not detected.
Patient may be a carrier, colonized with nontoxinogenic
strain or the level of toxin in sample is below detection
limits. This information should be used in conjunction with
the patient's clinical history.
[2024-11-02] MEDS: MELATONIN 5 MG PO (21:36)
[2024-11-02] MEDS: COLACE 100 MG PO (21:36)
[2024-11-03 03:00] VITALS: BP 105/47
[2024-11-03 06:00] VITALS: BMI 24.4
[2024-11-03 06:14] LABS: Hematocrit 40.5 % (37.0-47.0); Hemoglobin 13.4 g/dL (12.0-16.0); Mean Corp Hgb Conc. 33.1 g/dL (33.0-37.0); Mean Corpuscular Volume 86.7 fL (81.0-99.0); Nucleated Red Blood Cells % 0 %; Platelet Count 219 10^3/uL (130-400); Red Cell Dist. Width 14.6 % (11.5-14.5)
[2024-11-03] MEDS: SYNTHROID 100 MCG PO (06:19)
[2024-11-03 06:32] LABS: Blood Urea Nitrogen 54 mg/dl (7-17); Calcium 8.1 mg/dl (8.4-10.2); Carbon Dioxide 18 mmol/L (22-30); Chloride 108 mmol/L (98-107); Estimated Creatinine Clearance 22 ml/min; Glucose 89 mg/dl (70-99); Magnesium 2.0 mg/dl (1.6-2.3); Potassium 4.8 mmol/L (3.5-5.1); Sodium 136 mmol/L (135-145); eGFR 33.52
[2024-11-03 07:00] VITALS: BP 143/62
[2024-11-03] MEDS: ASPIR LOW (ENTERIC COATED) 81 MG PO (08:43)
[2024-11-03] MEDS: DELTASONE 2.5 MG PO (08:44)
[2024-11-03] MEDS: MIRALAX 17 GRAMS PO (08:44)
[2024-11-03] MEDS: DIFICID 200 MG PO (08:44)
[2024-11-03] MEDS: ELIQUIS 10 MG PO ×2 (08:44→20:43)
[2024-11-03] MEDS: LASIX 20 MG IV (08:45)
[2024-11-03] MEDS: HYDROPHOR 1 APPLIC TOPICAL (08:49)
[2024-11-03 11:06] VITALS: BP 116/57
--- NOTE | 2024-11-03 12:08 | W.PN.PUL3 ---
Today's Communication / Plan
-
CXR suggest fluid in the fissure
Consider follow-up chest x-ray as clinically indicated. Lack of pulmonary symptoms precludes aggressive follow-up at this time
Continue anticoagulation for thromboembolic process
May consider outpatient CT chest to confirm resolution of parenchymal process. Age and DNR status will need to be considered in decision making process
Patient anxious for discharge
Pulmonary follow-up information left in chart
We will sign off. Please call with questions
Assessment
-
#1. B/L Pleural effusions, L>R due to acute decompensated heart failure
- Bilateral effusions, pedal edema on exam, Orthopnea, BNP elevated at 2019, all point to CHF decompensation
- Continue Lasix 20 mg IV daily
- Monitor response to diuretics. Currently saturation well on room air
- CXR 11/03 with likely fluid in the fissure on the left. Doubt pneumonitis. Follow clinically for now. Hold on further thoracentesis
#2. B/L Compressive atelectasis vs pneumonia, due to pleural effusions; possible left lower lobe pneumonia
- Afebrile, normal WBC count, denies cough or expectoration. Pneumonia felt to be less likely
- Monitor off antibiotics for now
- There appears to be possible mucous plugging in the bases, as CTA chest shows peripheral bronchial endoluminal opacification - difficult to say as she has bronchiolar thickening and bibasilar pleural effusions with compressive atelectasis. Will
need to consider outpatient follow-up CT chest to confirm resolution depending on clinical course. Age and DNR status will need to be taken into account regarding follow-up imaging
#3. Bilateral nonocclusive lower extremity DVT, suspect related to recent hospital stay and essentially bed bound status
- Hemodynamically stable
- CTA chest on 10/30/2024 was negative for an acute PE; interestingly, her echo on 10/30/2024 shows a dilated RV with reduced systolic function, and PASP 45 mmHg; no prior TTE to compare to
- Eliquis for now with loading dose 10mg BID x 7 days, then 5mg BID after that
- Recommend outpatient hematology evaluation for hypercoagulable workup and discussion regarding duration of AC
#4. Pulmonary HTN
- PASP 45 on ECHO with RV dilated and reduced RV systolic function
- With elevated BNP, volume overload, group II PH in differential diagnosis.
- Keep O2 sats above 90%, aim for euvolemia
- No obvious pulmonary embolism noted, new diagnosis of DVT, VQ mismatch with CHF still in differential diagnosis, can be pursued as outpatient
- Overall at age 88, will favor conservative management with target euvolemia and normal oxygen saturation. Depending upon clinical course, may consider right heart catheterization
- Patient has never smoked, low pretest probability of underlying obstructive airway disease; Can pursue formal pulmonary function testing as outpatient. ESS score is low, making obstructive sleep apnea unlikely.
Other medical diagnoses:
- DVT. on Eliquis now
- CKD stage III
- Hypothyroidism
- History of polymyalgia rheumatica, chronically on steroids
- Paroxysmal atrial fibrillation
- History of hip fracture, surgery complicated by cardiac arrest
- Diarrhea -with positive C. difficile antigen but negative toxin � currently on for maximized
Outpatient pulmonary follow-up can be considered. Information left in chart
We will sign off. Please call with questions
Data:
ECHO 10/2024: Normal LV size and function with no wall motion abnormalities.
LVEF is 60-65% by visual estimation.
Dilated RV with reduced systolic function.
Mild tricuspid regurgitation.
Estimated pulmonary artery pressure of 45 mmHg assuming a right atrial pressure
of 3 mmHg.
No prior study available for comparison.
CT-PE 10/2024: No definite evidence for pulmonary embolism.
Moderate right and small left pleural effusion. Adjacent parenchymal consolidation, atelectasis versus pneumonia. Bronchial wall thickening and endoluminal opacity, consistent with bibasilar mucous plugging. The associated pulmonary artery segments
appear attenuated and diminished in caliber, as opposed to demonstrating focal contrast cutoff as would be expected with focal emboli. This suggests ventilation/perfusion mismatch, with blood flow redirected away from atelectatic lung.
Pulmonary artery branching order level of the most proximal pulmonary embolism: N/A
Findings suggest elevated right-sided heart pressure and/or tricuspid insufficiency.
Subjective Data
-
Date of Service:
Date of Service: November 03, 2024
Chief Complaint: Pulmonary Follow Up
Subjective:
Patient is without significant pulmonary complaints. Denies difficulty swallowing, cough, chest pain, pleurisy, shortness of breath. She admits to being weak and fatigued. She felt weak walking to the commode this morning. Otherwise conversant
on room air
Objective Data
Data Reviewed
Vital Signs / I&O / Oxygen:
Vital Signs
Temp Pulse Resp BP Pulse Ox
97.6 F 46 17 116/57 98
11/03/24 11:06 11/03/24 11:06 11/03/24 11:06 11/03/24 11:06 11/03/24 11:06
Intake and Output
11/02/24 11/03/24 11/04/24
06:59 06:59 06:59
Intake Total 710 / 710 1000 / 1000
Balance 710 / 710 1000 / 1000
SaO2 98
Physical Exam
General: Comfortable
HEENT: Normocephalic and Anicteric
Cardiovascular: S1-S2, Regular Rhythm, Murmur (2/6 systolic murmur), Peripheral Edema (tr) and Other (Mild chronic venous stasis changes)
Respiratory: Wheeze (negative), Crackles (negative), Rhonchi (n), Non-Labored Respirations, Stridor (n) and Other (Diminished breath sounds overall)
GI: Soft, Non Distended, Non Tender and Normal Bowel Sounds
Neurology: Awake, Alert and No Motor Deficits (Moves all extremities but generally weak, cannot sit up without assistance)
Skin: Cyanosis (negative), Jaundice (negative) and Other (Positive clubbing)
Labs/Micro/Reports
Lab Data
11/03/24 05:42
11/03/24 05:42
Microbiology
10/30/24 09:17 Feces/Stool Salmonella/Shigella Culture - Final
No Salmonella, Shigella, Aeromonas or Plesiomonas species
isolated.
10/30/24 09:17 Feces/Stool Campylobacter Culture - Final
No Campylobacter species isolated.
10/30/24 09:17 Feces/Stool Shiga Toxin Test - Final
No E. coli Shiga Toxin 1 or 2 detected.
10/30/24 09:17 Feces/Stool Stool Leukocytes - Final
10/30/24 09:18 Nose MRSA Screen - Final
No Methicillin Resistant Staphylococcus aureus isolated.
[2024-11-03 15:00] VITALS: BP 119/58
--- NOTE | 2024-11-03 15:41 | CM ---
Reviewed PT eval with Mary Anne at [facility] .She will review but believes pt will need to go to Rehab prior to return to assisted living.
[facility] will speak with dgt.
Will review with dgt Meron and check what SNF she wants.
She will need auth for [facility].
PLAN Locate SNF obtained auth
--- NOTE | 2024-11-03 15:59 | W.PN.HOSP.TC ---
Today's Communication/Plan
-
Transition to oral Lasix.
Continue Eliquis.
Discharge planning
Assessment / Plan
Assessment / Plan
Impression:
Presentation with intermittent chest pain. Currently denies active chest pain
Acute diastolic CHF
Hyperkalemia.
resolved
Loose stools
Bilateral lower extremity DVT
Other conditions
Cardiac arrest following hip surgery.
Chronic orthostatic hypotension requiring midodrine.
CKD stage IIIa
Hypothyroidism.
History of atrial fibrillation details unknown.
PMR on chronic steroids
Plan:
Chest pain intermittent.
Patient with no prior history of CAD.
Negative cardiac enzymes.
Noted elevated pro CHF BNP at 2020 (unknown baseline)
ECG with RBBB otherwise nonischemic.
Echocardiogram with LVEF 60-65%. Dilated RV with reduced systolic function, mild TR, PA pressure 45 mmHg.
Discussed with cardiology
At this point no evidence for acute coronary syndrome. No clinical indication for further ischemic evaluation
Given intermittent chest pain, risk factors including immobility, EKG with RBBB and echo with RV strain, we will proceed with CT PE protocol. (D-dimer has been equivocal, with limited reliability in the settings of CKD)
CT chest findings with no evidence of pulmonary embolism. Moderate right and small left pleural effusion. Adjacent parenchymal consolidation, atelectasis versus pneumonia. Bronchial wall thickening and endoluminal opacity, consistent with bibasilar
mucous plugging. The associated pulmonary artery segments appear attenuated and diminished in caliber, as opposed to demonstrating focal contrast cutoff as would be expected with focal emboli. This suggests ventilation/perfusion mismatch, with blood
flow redirected away from atelectatic lung.
Stable respiratory status with no clear evidence for acute respiratory infection (has been afebrile with normal white count)
Speech evaluation with no evidence for overt aspiration
Pulmonology evaluation with concern of probably symptomatic right pleural effusion, mucous plugging, pulmonary hypertension with RV dysfunction. Differential diagnosis: Infectious, including chronic silent aspiration, versus malignant.
bilateral lower extremity Doppler: Nonocclusive thrombus is present in the proximal right femoral vein with occlusive thrombus in the mid right femoral vein and nonocclusive thrombus in the distal right femoral vein. Nonocclusive thrombus is also
present in the right popliteal and peroneal veins. The right posterior tibial vein is patent.
On the left, nonocclusive thrombus in the left popliteal vein. The left common femoral, femoral, peroneal, and posterior tibial veins are patent. The proximal left greater saphenous vein is patent.
Concern for acute CHF preserved EF.
Initiated on IV diuresis.
Weight remains plateau.
Given pulmonary hypertension will transition to oral Lasix to 20 mg daily
CKD stage III Per records, unknown baseline creatinine
Creatinine stable, plateaued at 1.4
Noted with normal gap metabolic acidosis likely secondary to GI losses with diarrhea.
Hyperkalemia likely function of above. Not on any hyperkalemic medications. Random cortisol within normal limits
Potassium level improved with hydration. Status post kelfl
Ongoing diarrhea.
Denies abdominal pain
Abdominal examination benign.
Describes recent hospitalization at [place], although limited historian could not provide details.
Stool for C. difficile positive for antigen negative for toxins.
Given persistent symptoms will initiate Dificid and Imodium
Candidal vaginitis
Initiated on antifungal
Hypothyroidism on replacement
PMR on low-dose of prednisone at 2.5 mg daily
Anticipated Discharge: Within 24 hours
Subjective/Interval History
-
Date of Service: November 03, 2024
Objective Data
-
Labs:
Laboratory Results
11/03/24
05:42
WBC 5.3
Hgb 13.4
Hct 40.5
Plt Count 219
Sodium 136
Potassium 4.8
Chloride 108 H
Carbon Dioxide 18 L
BUN 54 H
Creatinine 1.5 H
Glucose 89
Calcium 8.1 L
Vital Signs:
Vital Signs
Temp Pulse Resp BP Pulse Ox
98.0 F 52 18 119/58 96
11/03/24 15:00 11/03/24 15:00 11/03/24 15:00 11/03/24 15:00 11/03/24 15:00
I&O
11/02/24 11/03/24 11/04/24
06:59 06:59 06:59
Intake Total 710 / 710 1000 / 1000
Balance 710 / 710 1000 / 1000
Physical Exam
-
General: Well Developed, Well Nourished, No Apparent Distress and Appears Chronically Ill
HEENT: Normocephalic, Atraumatic and Moist Mucous Membranes
Respiratory: Clear to Auscultation; Negative Wheezes, Rales or Rhonchi
Cardiac: Regular Rhythm and S1/S2
GI: Soft, Nontender and Nondistended
Musculoskeletal: Other (chronic stasis dermatitis)
[2024-11-03 19:00] VITALS: BP 109/52
[2024-11-03] MEDS: COLACE PO (22:22)
[2024-11-03] MEDS: MELATONIN 5 MG PO (22:22)
[2024-11-03 23:00] VITALS: BP 107/49
--- NOTE | 2024-11-04 00:01 | PTCARENOTE ---
Oral care was not performed on patient because she stated that it was her preference to brush her teeth in the morning.
[2024-11-04 03:00] VITALS: BP 94/48
[2024-11-04 03:13] VITALS: BMI 24.3
[2024-11-04] MEDS: BENADRYL 6.25 MG IV (03:36)
[2024-11-04] MEDS: SYNTHROID PO (06:07)
--- NOTE | 2024-11-04 06:15 | PTCARENOTE ---
Pt refusing am care. Does not want morning meds, labs, or hygiene. She states 'I do not want to live anymore.' When asked if she wants to harm her self she states ' No I just want to go naturally.' This is a change in mental status from start from
start of shift. BOTTOM PAINTER notified.
[2024-11-04 07:48] VITALS: BP 106/52
[2024-11-04] MEDS: DELTASONE 2.5 MG PO (08:57)
[2024-11-04] MEDS: ELIQUIS 10 MG PO (08:57)
[2024-11-04] MEDS: ASPIR LOW (ENTERIC COATED) 81 MG PO (08:57)
[2024-11-04] MEDS: LASIX 20 MG PO (08:59)
[2024-11-04] MEDS: MIRALAX PO (09:01)
[2024-11-04] MEDS: HYDROPHOR 1 APPLIC TOPICAL (09:02)
[2024-11-04 11:16] VITALS: BP 106/51
--- NOTE | 2024-11-04 11:20 | CM ---
MD indicated pt ready for discharge.
Spoke with Petra at [facility] .She said [facility] has accepted pt to return to assisted living.
Spoke with Meron dgt [phone] she has copy of IMM and agrees with dc today back to [facility].
Meron agreed with ambulance transportation. Pt is assist of two Mod to max as per Pt als Medical nec form completed.
PLAN return to [facility] report [phone]
--- NOTE | 2024-11-04 13:22 | W.DS.TRANS ---
DC Summary - [facility]
-
Discharge Instructions:
Discharge Diagnosis/Procedures Impression:
Presentation with intermittent chest pain.
Currently denies active chest pain
Acute diastolic CHF
Hyperkalemia.
resolved
Loose stools
Bilateral lower extremity DVT
Other conditions
Cardiac arrest following hip surgery.
Chronic orthostatic hypotension requiring
midodrine.
CKD stage IIIa
Hypothyroidism.
History of atrial fibrillation details unknown.
PMR on chronic steroids
Diet Regular
Instructions:
Stand-Alone Forms:
Changes to Home Medications: Yes
Discharge Medications:
DC Medications w/original date entered in [employer]
Colace 100 mg PO HS Constipation 10/29/24
Miralax 17 g PO DAILY Constipation 10/29/24
acetaminophen 650 mg PO Q6H PRN mild pain 10/29/24
levothyroxine 100 mcg tablet 100 mcg PO DAILY@06 Thyroid 10/29/24
midodrine 5 mg PO BID Blood Pressure 10/29/24
prednisone 2.5 mg PO DAILY Anti-Inflammatory 10/29/24
apixaban 5 mg tablet (Eliquis) 5 mg PO BID #60 tabs 11/04/24
furosemide 20 mg tablet 20 mg PO DAILY #30 tabs 11/04/24
pantoprazole 20 mg tablet,delayed release (Protonix) 20 mg PO DAILY #30 tabs 11/04/24
Home Medication Changes
Eliquis started for new diagnosis of LE DVT
Lasix started
PPI initiated
Pending Results: No
== END 2024-11-04 14:00 | disposition home or self-care (01) | DRG 640 ==
LOC: 3 WEST ACU 08:25
PROVIDERS: Clinical Nurse Specialist Family Health; Emergency Medicine; Internal Medicine; Internal Medicine Critical Care Medicine; ADMITTING PHYSICIAN Internal Medicine; ATTENDING PHYSICIAN Internal Medicine; CONSULT PHYSICIAN Internal Medicine; EMERGENCY PHYSICIAN Emergency Medicine; OTHER PHYSICIAN Internal Medicine
DX: E87.5 Hyperkalemia (principal); I50.33 Acute on chronic diastolic (congestive) heart failure; A04.72 Enterocolitis due to Clostridium difficile, not specified as recurrent; I45.2 Bifascicular block; I48.92 Unspecified atrial flutter; J98.11 Atelectasis; I82.411 Acute embolism and thrombosis of right femoral vein; I82.431 Acute embolism and thrombosis of right popliteal vein; I82.451 Acute embolism and thrombosis of right peroneal vein; I82.432 Acute embolism and thrombosis of left popliteal vein; E87.20 Acidosis, unspecified; N18.32 Chronic kidney disease, stage 3b; I48.0 Paroxysmal atrial fibrillation; I95.1 Orthostatic hypotension; I27.20 Pulmonary hypertension, unspecified; E03.9 Hypothyroidism, unspecified; F41.9 Anxiety disorder, unspecified; R13.10 Dysphagia, unspecified; M35.3 Polymyalgia rheumatica; R26.2 Difficulty in walking, not elsewhere classified; R41.89 Other symptoms and signs involving cognitive functions and awareness; I25.10 Atherosclerotic heart disease of native coronary artery without angina pectoris; B37.31 Acute candidiasis of vulva and vagina; K59.09 Other constipation; Z66 Do not resuscitate; Z96.642 Presence of left artificial hip joint; I25.2 Old myocardial infarction; Z79.890 Hormone replacement therapy; Z79.52 Long term (current) use of systemic steroids; Z83.3 Family history of diabetes mellitus; Z82.49 Family history of ischemic heart disease and other diseases of the circulatory system; Z82.3 Family history of stroke; Z84.1 Family history of disorders of kidney and ureter; Z80.42 Family history of malignant neoplasm of prostate; Z79.82 Long term (current) use of aspirin; Z86.74 Personal history of sudden cardiac arrest; Z74.01 Bed confinement status
CPT/HCPCS: 71045; 71046; 71275; 80048; 80053; 80061; 82533; 83735; 83880; 84100; 84439; 84443; 84484; 85025; 85379; 85652; 87045; 87046; 87070; 87324; 87427; 87449; 89055; 92526; 92610; 93005; 93306; 93970; 97163; 97167; 97530; 99285; Q9967

== ENCOUNTER 2024-11-09 21:15 | Inpatient (IN) | payer OTHER, SELFPAY ==
[2024-11-09 16:35] VITALS: BP 124/58; BMI 24.2
[2024-11-09 16:53] LABS: Hematocrit 48.9 % (37.0-47.0); Hemoglobin 16.3 g/dL (12.0-16.0); Mean Corp Hgb Conc. 33.3 g/dL (33.0-37.0); Mean Corpuscular Volume 86.4 fL (81.0-99.0); Nucleated Red Blood Cells % 0 %; Platelet Count 251 10^3/uL (130-400); Red Cell Dist. Width 14.8 % (11.5-14.5)
--- NOTE | 2024-11-09 17:12 | ED.GENMED ---
History of Present Illness
General
Chief Complaint: Abdominal Symptoms
Source: patient and records
Exam Limitations: none
Time Seen by Provider: 11/09/24 17:07
Nursing documentation reviewed up to this point in time: agreed with
History of Present Illness
History of Present Illness:
88-year-old female from [facility] with history of cardiac arrest, hip surgery, orthostatic hypotension requiring midodrine, pulmonary hypertension, CKD stage III, hypothyroidism A-fib and DVTs on Eliquis, PMR on chronic steroids, CHF.
Admitted 10/31 to 11/04/2024 for diastolic CHF, hyperkalemia, loose stools with C. difficile antigen positive toxin negative, new diagnosis of bilateral DVTs. She did finish a 5-day course of Dificid during that time. New medications she was
discharged on include Eliquis, Lasix and pantoprazole.
Patient denies chest pain, SOB, abdominal pain, she feels nauseous
Past History
Past History
ED Past Medical History: Arrthythmia (afib), CAD, Hypercholesterolemia, SC, Renal failure, Hypothyroidism, Psychiatric (anxiety ), Other (bilateral LE DVTs on Eliquis) and Other (orthostatic hypotension, bradycardia)
ED Past Surgical History: None
Social History
Tobacco: Non-smoker
Alcohol: None
Living: assisted living
Employment: Retired
Review of Systems
Review of Systems
Allergies reviewed?: Yes
All Other Systems: ROS reviewed and negative except as documented in HPI and ROS
Constitutional: Denies fever
Respiratory: Denies trouble breathing
Cardiac: Denies chest pain
ABD/GI: Reports nausea, vomiting and diarrhea; Denies abdominal pain, bloody stools or black stools
Phy Exam
Physical Exam
Physical Exam:
GENERAL: No acute distress. A&Ox3. Cachectic, frail.
CONSTITUTIONAL: Afebrile.
EYES: clear, conjunctivae normal
ENMT: dry mucus membranes, Pharynx nl
RESPIRATORY: Regular respirations, nonlabored, lungs clear.
CARDIOVASCULAR: Regular rate and rhythm, no murmurs, no rubs.
GI: Soft, nontender, normal BS
Rectal: light brown liquid stool pouring out, diaper full
MUSCULOSKELETAL: Well perfused. Bilateral LE chronic stasis changes, mild swelling R>L
SKIN: Warm, dry, pale
PSYCH: Depressed mood and affect. Well kept, interactive and appropriate
NEUROLOGIC: Awake, alert and oriented. No focal neurological deficits
Course
Orders/Labs/Results
Orders:
Orders
11/09/24 16:43
Complete Blood Count/With Diff Urgent
Comprehensive Metabolic Panel Urgent
Lipase Urgent
11/09/24 17:10
Ondansetron Injectable [Zofran] 4 mg IV NOW STA
11/09/24 17:11
0.9% Sodium Chloride 1000 ml [Nss] 1,000 ml IV BOLUS
11/09/24 17:13
0.9% Sodium Chloride 500 ml [Nss] 500 ml IV BOLUS
11/09/24 17:44
C DIFF [C difficile Antigen & Toxins] Urgent
LESLEE Source: Feces/Stool
Specimen Description:
Date Specimen was Collected: 11/09/24
Time Specimen was Collected: 17:28
Stool Culture Urgent
LESLEE Source: Feces/Stool
Specimen Description:
Date Specimen was Collected: 11/09/24
Time Specimen was Collected: 17:28
11/09/24 21:02
Admit/Transfer Patient As Directed
Co-Sign Provider:
Level of Care: Inpatient admission
Assign to:: Telemetry
Physician / Group: [email or web address]
Diagnosis: see below
Reason for Telemetry: Arrhythmia
Date to Stop Telemetry: 11/12/24
Time to Stop Telemetry: 11:00
Reason for Hospitalization: Acute N.V/D c/b severe dehydration
Presumed CDAD and enterocolitis
Prerenal CHEY on CKD3a
Expected length of stay greater than two midnights?: Yes
ELOS- Estimated Length of Stay in days: 3
I certify the patient meets the requirements for IP care: Yes
11/09/24 21:06
Code Status As Directed
Resuscitation Status: Full Code
11/09/24 22:22
0.9% Sodium Chloride 1000 ml [Nss] 1,000 ml IV 80 mls/hr
Bisacodyl [Dulcolax] 10 mg RECTAL [id number] PRN
Docusate W/Senna [Senokot-S] 1 tablet PO BIDPRN PRN
Polyethylene Glycol Powder [Miralax] 17 grams PO DAILYPRN PRN
11/09/24 22:22
Activity As Directed
Activity Level: With Assistance
Intake/ Output As Directed
Frequency: Per unit guidelines
Vital Signs As Directed
Frequency: Per unit guidelines
11/10/24 00:00
Vancomycin HCl [Firvanq] 250 mg PO Q6
11/10/24 Breakfast
Clear Liquid
At Your Request: Limited, Lube Attendant Required
Comment: ADAT
Levothyroxine [Synthroid] 100 mcg PO DAILY@0600
11/10/24 06:05
Basic Metabolic Panel IN AM
Complete Blood Count/No Diff IN AM
11/10/24 08:00
Apixaban [Eliquis] 2.5 mg PO BID
Aspirin Chewable [Low Strength Aspirin] 81 mg PO DAILY
Lactobac/Bifidobac [Visbiome] 2 cap PO DAILY
Midodrine [ProAmatine] 5 mg PO BID AT 0800,1600
Prednisone [Deltasone] 2.5 mg PO DAILY
11/12/24 11:00
DC Protocol for Telemetry ONCE
Abnormal Lab Results
11/09/24
16:43
RBC 5.66 H 10^6/uL
(4.20-5.40)
Hgb 16.3 H D g/dL
(12.0-16.0)
Hct 48.9 H %
(37.0-47.0)
RDW 14.8 H %
(11.5-14.5)
Chloride 108 H mmol/L
(98-107)
Carbon Dioxide 20 L mmol/L
(22-30)
BUN 63 H mg/dl
(7-17)
Creatinine 1.7 H mg/dL
(0.6-1.0)
AST 13 L U/L
(14-36)
11/09/24 16:43
11/09/24 16:43
Vital Signs
Initial and Last Documented VS:
Initial Vital Signs
Temp Pulse Resp BP Pulse Ox
98.4 F 71 18 124/58 100
11/09/24 16:35 11/09/24 16:35 11/09/24 16:35 11/09/24 16:35 11/09/24 16:35
Last Documented Vital Signs
Temp Pulse Resp BP Pulse Ox
97.5 F 45 20 112/52 98
11/10/24 08:01 11/10/24 11:19 11/10/24 08:01 11/10/24 11:19 11/10/24 08:01
MDM/Problems Addressed
Differential Diagnosis Includes:
Dehydration, gastroenteritis, C. difficile, bacterial enteritis
MDM/Problems Addressed:
88-year-old female from [facility] with history of cardiac arrest, hip surgery, orthostatic hypotension requiring midodrine, pulmonary hypertension, CKD stage III, hypothyroidism A-fib and DVTs on Eliquis, PMR on chronic steroids, CHF.
Admitted 10/31 to 11/04/2024 for diastolic CHF, hyperkalemia, loose stools with C. difficile antigen positive toxin negative, new diagnosis of bilateral DVTs. She did finish a 5-day course of Dificid during that time. New medications she was
discharged on include Eliquis, Lasix and pantoprazole.
Patient denies chest pain, SOB, abdominal pain, she feels nauseous
Afebrile, nontoxic-appearing
Last stool test on 10/10/2024 was C. difficile antigen positive toxin negative, level of toxin may have been below detection level, will repeat
CBC with no clinically significant abnormality
CMP: Showing worsening kidney function this may be result of dehydration IV fluids ordered
Lipase within normal limits
5:40 PM:
Plan: Admit: Dehydration, acute on chronic kidney insufficiency, severe diarrhea
Stool c diff and cultures pending
Hospitalist notified of admission
*Pulse Oximetry
SaO2: 100
Oxygen Mode of Delivery: Room air
Patient hypoxic: no
*Critical Care Note
Total Time (30-74mins, 75-104mins- exclusive of procedures): Not Applicable
ED Attending Note
-
Portions of this chart may have been created with voice recognition software.� Occasional wrong word or��sound alike� substitutions may have occurred due to the inherent limitations of voice recognition software.
Discharge Plan
Departure
Patient Disposition: Admit
Date of Disposition: 11/09/24
Time of Disposition: 17:37
Admit to: Med/Surg
Presentation/result/management discussed w/ accepting MD/DO: Hospitalist
Condition: Fair
Discharge Problem:
Severe diarrhea, Acute on chronic renal insufficiency, Acute dehydration
Interventions
Interventions:
*Risk Screen - Suicide Last Done: 11/09/24 16:35
*General Assessment Last Done: 11/09/24 16:35
*Neglect/Abuse Screening Last Done: 11/09/24 22:21
*ED- Fall Risk Assessment Last Done: 11/09/24 22:21
*ED COVID-19 Vaccine History Last Done: 11/09/24 22:21
*Nursing Disposition Last Done: 11/09/24 22:22
WH-Rhrbnz-Pzpludwrai Assessment Last Done: 11/09/24 16:35
Discharge Date and Time
Discharge Date/Time: 11/09/24 22:23
[2024-11-09 17:14] LABS: ALT (SGPT) < 10 U/L (0-35); AST (SGOT) 13 U/L (14-36); Albumin 4.0 g/dl (3.5-5.0); Alkaline Phosphatase 54 U/L (38-126); Blood Urea Nitrogen 63 mg/dl (7-17); Calcium 8.4 mg/dl (8.4-10.2); Carbon Dioxide 20 mmol/L (22-30); Chloride 108 mmol/L (98-107); Estimated Creatinine Clearance 18 ml/min; Glucose 92 mg/dl (70-99); Lipase 91 U/L (23-300); Potassium 5.1 mmol/L (3.5-5.1); Sodium 137 mmol/L (135-145); Total Protein 7.2 g/dl (6.3-8.2); eGFR 28.84
[2024-11-09] MEDS: NSS 500 IV (17:20)
[2024-11-09] MEDS: ZOFRAN 4 MG IV (17:21)
[2024-11-09 19:06] VITALS: BP 112/64
[2024-11-09 20:00] VITALS: BP 106/65
--- NOTE | 2024-11-09 20:57 | HPS.HSE ---
Family Physician
-
Family Physician: Todd Sood
Chief Complaint
-
N/V/D
History of Present Illness
HPI
88F Res of [facility] sen at ER
- N/V/D
- severe dehydration
- Labs c/w CHEY on CKD3
ROS
denies chest pain, SOB, abdominal pain, she feels nauseous
HX cardiac arrest, post hip surgery, Mitodrine depedent, orthostatic hypotension, PHT, CKD3, , hypothyroidism A-fib and DVTs on Eliquis, PMR on chronic steroids, CHF. recent admission 10/31 to 11/04/2024 for diastolic CHF, hyperkalemia, loose stools
with C. difficile antigen positive toxin negative, new diagnosis of bilateral DVTs. S/P 5-day course of Dificid during that time. New medications she was discharged on include Eliquis, Lasix and pantoprazole.
Medical History
Past Medical History
Past Medical History: Reports Other
Additional Past Medical History:
CAD/MD
CKD unknown stage ? 3B
Atrial fibrillation/A-flutter Hx
Bradycardia hx
Orthostatic hypotension
Pulmonary hypertension
Cognitive deficit
Hypothyroidism
Anxiety
Dysphagia
Polymyalgia rheumatica
Chronic ambulatory dysfunction.
Past Surgical History: Reports Other
Additional Past Surgical History:
Left hip replacement December 2020
Social History
Tobacco: Non-smoker
Alcohol: None
Drug: None
Personal:
Living: Assisted Living ([facility])
Employment: Retired
Family History
Family History: Other (Father multiple strokes, [place] age 82, mother history of heart disease age 92, brother DM2, cardiac issues, prostate CA, sister renal failure, DM 2, age 89)
Allergies / Home Medications
Allergies reflects when Allergies were last updated in [employer].
Home Medications with original date entered in [employer]
Allergy/Medication List:
Allergies
Allergy/AdvReac Type Severity Reaction Status Date / Time
No Known Allergies Allergy Unverified 10/29/24 17:47
Home Medications
Aspir-81 81 mg PO DAILY 10/29/24
Colace 100 mg PO HS 10/29/24
Miralax 17 g PO DAILY 10/29/24
acetaminophen 650 mg PO Q6H PRN mild pain 10/29/24
levothyroxine 100 mcg tablet 100 mcg PO DAILY 10/29/24
midodrine 5 mg PO BID 10/29/24
prednisone 2.5 mg PO DAILY 10/29/24
Review of Systems
-
History Source: Patient
A 12 point ROS was completed and negative except as noted: Yes
Constitutional: Denies Fever or Fatigue
EENT: Denies Sore Throat or Mouth Swelling
Respiratory: Denies Cough or Trouble Breathing
Cardiac: Reports Chest Pain (Midsternal); Denies Diaphoresis, Palpitations or Syncope
Abdomen/GI: Reports Nausea, Vomiting and Diarrhea; Denies Constipated
: Denies Dysuria, Frequency, Flank Pain, Incontinence or Difficulty Voiding
Musculoskeletal: Reports Edema (Chronic +1 nonpitting bilateral lower legs with chronic plaques and flaking skin overgrown toenails); Denies Joint Pain
Skin: Denies Itching or Rash
Neurological: Denies Dizzy, Headache or Weakness
Endocrine: Reports No Symptoms
Hematologic/Lymphatic: Reports No Symptoms
Psych: Reports Calm
Physical Exam
Vital Signs
Vital Signs
Temp Pulse Resp BP Pulse Ox
98.4 F 44 16 112/64 96
11/09/24 16:35 11/09/24 19:06 11/09/24 19:06 11/09/24 19:06 11/09/24 18:30
Physical Exam
General: Comfortable and Conversant; No Pain, Fever or Chills
HEENT: NormoCephalic, Anicteric, Moist mucous membranes, PERRLA, Brushy Conjunctivae and No Ptosis
Respiratory: Clear; No Wheezes, Rales or Rhonchi
Cardiac: S1/S2, Regular Rhythm and Peripheral Edema (Chronic +1 nonpitting bilateral lower legs with chronic plaques and flaking skin overgrown toenails); No Murmur, Rub or Gallop
Breast: Deferred by me
GI: Soft, Non Distended, Normal Bowel Sounds and No Hepatosplenomegaly
Rectal: Deferred by Provider
Genito-urinary: Deferred by me
Musculoskeletal: Clubbing (To all fingernails), No Cyanosis, Edema, Left Lower Extremity and Edema, Right Lower Extremity (Chronic +1 nonpitting bilateral lower legs with chronic plaques and flaking skin overgrown toenails); No Edema, Left Upper
Extremity or Edema, Right Upper Extremity
Skin: Warm and Dry; No Rash
Neuro: AO x 3 (To name, place, president, history except most recent 6 weeks ago), No Motor Deficits (While in bed), Nonfocal/grossly intact, Cranial Nerves Intact and No Sensory Deficits; No Slurred Speech, Facial Droop, Tremors or Sedated
Psych: Calm
Laboratory Results
-
11/09/24 16:43
11/09/24 16:43
Laboratory Results
Total Bilirubin 0.5 mg/dl (0.2-1.3) 11/09/24 16:43
AST 13 U/L (14-36) L 11/09/24 16:43
ALT < 10 U/L (0-35) 11/09/24 16:43
Alkaline Phosphatase 54 U/L (38-126) 11/09/24 16:43
Lipase 91 U/L (23-300) 11/09/24 16:43
Data Reviewed
-
Lab Data: Labs Reviewed by me
Old Records: Reviewed
Impression/Plan
-
Vital Signs
Temp Pulse Resp BP Pulse Ox
98.4 F 44 16 112/64 96
11/09/24 16:35 11/09/24 19:06 11/09/24 19:06 11/09/24 19:06 11/09/24 18:30
Abnormal Lab Results
11/09/24
16:43
RBC 5.66 H
Hgb 16.3 H D
Hct 48.9 H
RDW 14.8 H
Chloride 108 H
Carbon Dioxide 20 L
BUN 63 H
Creatinine 1.7 H
AST 13 L
CXR pending report
EKG
Atrial-paced rhythm with prolonged AV conduction
LEFT BUNDLE BRANCH BLOCK
ABNORMAL ECG
WHEN COMPARED WITH ECG OF 02-NOV-2024 20:18,
ELECTRONIC ATRIAL PACEMAKER HAS REPLACED SINUS RHYTHM
Last hospitalist admission: 10/31/2024 - 11/04/2024
DISCHARGE DIAGNOSES:
1. Chest pain, likely multifactorial.
2. Acute congestive heart failure exacerbation, diastolic type.
3. Hyperkalemia, resolved.
4. Loose stools with Clostridium difficile antigen positive, toxin
negative.
5. New diagnosis of bilateral lower extremity deep vein thrombosis.
OTHER CONDITIONS: Including:
1. Cardiac arrest following hip surgery.
2. Chronic orthostatic hypotension requiring midodrine.
3. Chronic kidney disease, stage 3A.
4. Hypothyroidism, on replacement.
5. History of atrial fibrillation, details unknown.
6. Polymyalgia rheumatica, on chronic steroid maintenance.
ASSESSMENT & PLAN
Pending Rx reconciliation
Acute N.V/D - Associated with severe dehydration
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
Recent HX Stool C. difficile positive for antigen negative for toxins.
S/p 5 days course of Dificid
- stool for C Diff
- IV NS
- stop any anti diarrheal agent
- Stop PPI due to risk of C Diff
- start Visbiome probiotics
Empiric PO vancomycin and to consider ID consult
Prerenal CHEY due to GI loss
CKD3a
NG MA s likely secondary to GI losses with diarrhea
- Hold lasix for next 24- 48hrs
- IV NS and trend Cr
- avoid any nephrotoxic
New diagnosis of bilateral Marie DVT
- on Eliquis renal adjusted dose
HX Atrial fibrillation/A-flutter Hx
HX Nav cardia
- on ASA and Eliquis for recent DVT
Chronic orthostatic hypotension requiring midodrine.
Prior PMHX
Cardiac arrest following hip surgery.
CKD stage IIIa
Hypothyroidism; on LT4
History of atrial fibrillation details unknown.
Candidal vaginitis
PMR on low-dose of prednisone at 2.5 mg daily
Pulmonary hypertension
Cognitive disorder: s oriented to name, place, president but not recent admission approximately 6 weeks ago or reason why
Anxiety: No reported Meds
Chronic ambulatory dysfunction: - Uses walker and/or rollator at baseline
History of falls/rhabdo myelosis 2020
Chronic constipation/diarrhea
DVT Px: Eliquis
Full code
IP TLM
[2024-11-09 21:00] VITALS: BP 113/54
[2024-11-09 22:00] VITALS: BP 102/59
[2024-11-09 22:41] VITALS: BP 127/63; BMI 22.2
[2024-11-09 22:51] VITALS: BMI 22.2
[2024-11-09] MEDS: NSS 1000 IV (23:02)
[2024-11-09] MEDS: FIRVANQ 250 MG PO (23:03)
[2024-11-10 03:13] VITALS: BP 121/52
[2024-11-10] MEDS: SYNTHROID 100 MCG PO (05:25)
[2024-11-10] MEDS: FIRVANQ 250 MG PO (05:26)
[2024-11-10 05:35] VITALS: BMI 22.2
[2024-11-10 06:56] LABS: Hematocrit 44.9 % (37.0-47.0); Hemoglobin 14.8 g/dL (12.0-16.0); Mean Corp Hgb Conc. 33.0 g/dL (33.0-37.0); Mean Corpuscular Volume 87.2 fL (81.0-99.0); Platelet Count 224 10^3/uL (130-400); Red Cell Dist. Width 14.9 % (11.5-14.5)
[2024-11-10 07:12] LABS: Blood Urea Nitrogen 57 mg/dl (7-17); Calcium 8.0 mg/dl (8.4-10.2); Carbon Dioxide 17 mmol/L (22-30); Chloride 111 mmol/L (98-107); Estimated Creatinine Clearance 20 ml/min; Glucose 74 mg/dl (70-99); Potassium 5.4 mmol/L (3.5-5.1); Sodium 137 mmol/L (135-145); eGFR 31.02
[2024-11-10 07:35] VITALS: BP 117/62
[2024-11-10] MEDS: VISBIOME 2 CAP PO (07:56)
[2024-11-10] MEDS: DELTASONE 2.5 MG PO (07:56)
[2024-11-10] MEDS: LOW STRENGTH ASPIRIN 81 MG PO (07:56)
[2024-11-10] MEDS: ELIQUIS 2.5 MG PO ×2 (07:56→20:02)
[2024-11-10 08:01] VITALS: BP 105/48
--- NOTE | 2024-11-10 09:00 | W.PN.HOSP.TC ---
Addendum entered and electronically signed by Freda Sal MD 11/10/24 12:22:
Addendum
Patient still feeling unwell, weak. No nausea or diarrhea. She was noticed to have bradycardia on telemetry down to 35 at times. Soft blood pressure but chronic hypotension. EKG is ordered. This could be symptomatic bradycardia. Will ask for
cardiology opinion.
End
Original Note:
Today's Communication/Plan
-
Resume diet
DC vancomycin
DC Isolation
USE PRN Zofran
One time dose Lokelma
Assessment / Plan
Assessment / Plan
Physical Exam
General: Chronically ill looking, No Apparent Distress
HEENT: Normocephalic, Moist mucous membranes and Atraumatic
Respiratory: Clear
Cardiac: S1/S2
GI: Soft, Non-Tender, Non-Distended and Normal Bowel Sounds, obese.
Rectal: NO bleeding.
Musculoskeletal: No Clubbing, No Cyanosis
Neuro: AAO to self and surroundings, she followed commands, Nonfocal/grossly intact
Psych: Calm
# nausea
Seems to resolve
Resume PPI
she feels better
Stop IVF
use PRN Zofran
Advance diet
Negative C Diff testing,s top oral vancomycin
# Hyperkalemia, give Lokelma
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
Seems to improve
Stop IVF
- avoid any nephrotoxic
New diagnosis of bilateral Marie DVT
- on Eliquis renal adjusted dose
HX Paroxysmal Atrial fibrillation/A-flutter Hx
HX Nav cardia
- on ASA and Eliquis for recent DVT
Chronic orthostatic hypotension requiring midodrine.
Prior PMHX
Cardiac arrest following hip surgery.
CKD
Hypothyroidism; on LT4
Candidal vaginitis
PMR on low-dose of prednisone at 2.5 mg daily
Pulmonary hypertension
Cognitive disorder
Anxiety:
Chronic ambulatory dysfunction: - Uses walker and/or rollator at baseline
History of falls/rhabdo myelosis 2020
Chronic constipation/diarrhea
DVT Px: Eliquis
Full code
Total time spent to see the patient, examine the patient, review data and lab result, discuss treatment plan with patient, nursing staff around 55 minutes
Anticipated Discharge: Within 24 hours
Subjective/Interval History
-
Date of Service: November 10, 2024
No abdominal pain or nausea
She feels hungry and wants to eat solid food
Objective Data
-
Labs:
Laboratory Results
11/10/24
06:05
WBC 5.0
Hgb 14.8
Hct 44.9
Plt Count 224
Sodium 137
Potassium 5.4 H
Chloride 111 H
Carbon Dioxide 17 L
BUN 57 H
Creatinine 1.6 H
Glucose 74
Calcium 8.0 L
Vital Signs:
Vital Signs
Temp Pulse Resp BP Pulse Ox
97.5 F 43 20 105/48 98
11/10/24 08:01 11/10/24 08:01 11/10/24 08:01 11/10/24 08:01 11/10/24 08:01
I&O
11/09/24 11/10/24 11/11/24
06:59 06:59 06:59
Intake Total 960 / 960
Output Total 100 / 100
Balance 860 / 860
[2024-11-10] MEDS: LOKELMA 5 GRAM PO (11:17)
[2024-11-10] MEDS: LASIX 20 MG IV (11:19)
[2024-11-10] MEDS: PROTONIX IV 40 MG IV (11:21)
[2024-11-10] MEDS: NSS (PRESERVATIVE FREE) 10 ML IV (11:22)
--- NOTE | 2024-11-10 12:07 | PTCARENOTE ---
Pt noted to have a few episodes of bradycardia in the 39's this AM. notified with new orders for EKG. MD states that EKG results are consistent with last EKG. Pt denies dizziness, just states that she feels weak and not herself. Cardiology
consulted. Plan of care ongoing.
--- NOTE | 2024-11-10 13:46 | CON.CAR ---
Addendum entered and electronically signed by Jose Morrell MD 11/10/24 18:21:
I saw and examined the patient.
Dr. Byrd's note was reviewed and I agree with the note.
Comment:
88-year-old female with coronary artery disease, bilateral DVTs, HFpEF, chronic kidney disease, paroxysmal atrial fibrillation, chronic bradycardia, orthostatic hypotension on midodrine, and PMR who presents with nausea, vomiting, and diarrhea.
Cardiology is consulted due to concern for symptomatic bradycardia. At the time of my interview she is complaining of chest pain that has been going on for several months. She denies lightheadedness, dizziness, or syncope but she lives in an
assisted living facility and does not walk much. She is transported from her room to the dining room by wheelchair.
Physical exam notable for slow rate, regular rhythm, systolic murmur, clear lungs, and no lower extremity edema.
ECG 11/10/2024 1553: Sinus bradycardia, L axis, RBBB, inferolateral T wave inversions
ECG 11/10/2024 1204: Sinus bradycardia with competing junctional escape rhythm, L axis, RBBB, inferolateral T wave inversions
Telemetry: Sinus bradycardia with competing junctional escape rhythm
TTE 10/30/2024: LVEF 60-65%, dilated RV with decreased function, mild TR, PASP 45 mmHg
I do not think patient has symptomatic bradycardia. Her main complaint to me is chest pain that has been going on for months. She denies lightheadedness, dizziness, or syncope at her current level of activity (which is not much). I do not see any
high-grade AV block on her telemetry, but I would like my EP colleagues to review tomorrow. Assuming they agree, I see no role for a pacemaker.
Original Note:
Consultation
Consultation Request
Date/Time Consultation Requested: 11/10/2024 12:08
Date/Time Consultation Performed: 11/10/2024 13:00
Requesting Provider: Dr. Freda Sal
Performing Provider: Dr. Jose Morrell
Reason for Consultation: Bradycardia
Medical History
-
Chief Complaint: Bradycardia
History of Present Illness:
88-year-old female with past medical history of CAD, HFpEF (10/30/24 LVEF 60-65%) CKD stage IIIb, A-fib/A-flutter (not on anti-coagulation due to fall risk), bradycardia, orthostatic hypotension, pulmonary hypertension, cognitive deficits,
hypothyroidism, anxiety, dysphagia, polymyalgia rheumatica on chronic steroids, chronic ambulatory dysfunction presented to for nausea, vomiting, diarrhea and dehydration. She was recently admitted here from 10/31 to 11/04 for chest pain. Trop
(-). She was found to have right bundle branch block, echo revealed right ventricular dilation with reduced systolic function, mild TR, elevated pulmonary artery pressure 45 mmHg. Due to dilated right ventricle with pulmonary hypertension, CTA was
done to rule out PE. Found to have small left pleural effusion, but PE ruled out. Bilateral lower extremity ultrasound revealed bilateral DVT. BNP 2040. They suspected chest pain was due to decompensated HFpEF. She was also worked up for diarrhea
and started on oral vanco for c.diff antigen (+), toxin (-) and treated for bacterial vaginitis. She was discharged on eliquis for bilateral DVT and furosemide 20mg daily. She was feeling better when she went back to her assisted living facility,
however yesterday, she started to have some abdominal cramping. Later she had nausea, vomiting and diarrhea. The vomit was dark in color, but she cannot remember if there was blood in it. She denied any chest pain or SOB.
In the ED, BP 124/58, HR 71, RR 18, afebrile, hg 16.3, WBC 5.7, Cr 1.7, BUN 63. Stool cultures were sent. She was started on fluids and her oral vanco was continued. Her C.diff later back back (-) and oral vanco d/c. Cr today 1.6 downtrending. Hg
14.8 after fluids. Her HR has been bradycardic and in the high 30's on tele which prompted a cardiology consult. She continues to deny having any chest pain, SOB, heart palpitations this time around. She overall feels 'bleh' with no energy. She has
had falls in the past with unclear causes, but no episodes of lightheadedness or dizziness recently as at assisted living they make sure she gets around in her wheelchair. She denies any night sweats or fevers. She does endorse some weight loss but
has not had the appetite to eat as much as well. She has also been feeling depressed since her hip fracture and her passing away a few years back. She lives alone and is wondering if her abdominal symptoms are related to her nerves as it has
been hard living on her own with limited mobility.
Past Medical History
Past Medical History: Arrhythmias (a. fib), CAD and Other (Bradycardia, orthostatic hypotension, pulmonary hypertension, cognitive deficits, hypothyroidism, anxiety, dysphagia, polymyalgia rheumatica, chronic ambulatory dysfunction)
Past Surgical History: Other (Left hip surgery)
Social History
Tobacco: Non-Smoker
Alcohol: None
Drug: None
Personal:
Living: Alone
Employment: Retired
Family History
Family History: Other (Father multiple strokes, [place] age 82, mother history of heart disease age 92, brother DM2, cardiac issues, prostate CA, sister renal failure, DM 2, age 89)
Allergies / Home Medications
Allergy/AdvReac Type Severity Reaction Status Date / Time
No Known Allergies Allergy Unverified 10/29/24 17:47
�Medication �Instructions �Recorded �Confirmed �Type
acetaminophen 325 mg tablet 650 mg PO Q6HPRN PRN mild pain 11/09/24 11/09/24 History
(Tylenol)
apixaban 5 mg tablet (Eliquis) 5 mg PO BID 11/09/24 11/09/24 History
aspirin 81 mg chewable tablet 81 mg PO DAILY 11/09/24 11/09/24 History
docusate sodium 100 mg capsule 100 mg PO HS 11/09/24 11/09/24 History
(Colace)
furosemide 20 mg tablet (Lasix) 20 mg PO DAILY 11/09/24 11/09/24 History
levothyroxine 100 mcg tablet 100 mcg PO DAILY 11/09/24 11/09/24 History
midodrine 5 mg tablet 5 mg PO BID 11/09/24 11/09/24 History
ondansetron HCl 4 mg tablet 4 mg PO Q6H PRN nausea/vomiting 11/09/24 11/09/24 History
pantoprazole 20 mg tablet,delayed 20 mg PO DAILY 11/09/24 11/09/24 History
release (Protonix)
polyethylene glycol 3350 17 gram 17 g PO DAILY 11/09/24 11/09/24 History
oral powder packet (Miralax)
prednisone 2.5 mg tablet 2.5 mg PO DAILY 11/09/24 11/09/24 History
Review of Systems
-
History Source: Patient
Constitutional: No Symptoms
EENT: No Symptoms
Respiratory: No Symptoms
Cardiac: No Symptoms
Abdomen/GI: Diarrhea and Anorexia
Neurological: No Symptoms
Physical Exam
Vital Signs
Temp Pulse Resp BP Pulse Ox
97.5 F 45 20 112/52 98
11/10/24 08:01 11/10/24 11:19 11/10/24 08:01 11/10/24 11:19 11/10/24 08:01
Lab Results
11/10/24 06:05
11/10/24 06:05
Physical Exam
General: Other (Appears chronically ill)
HEENT: Normocephalic
Respiratory: Clear
Cardiac: S1/S2 and Other (bradycardic)
GI: Soft, Non Tender, Non Distended and Normal Bowel Sounds
Musculoskeletal: Cyanosis and No Edema
Skin: Warm and Dry
Neuro: AO x 3
Psych: Calm
Impression / Plan
-
88-year-old female with past medical history of CAD, CKD stage IIIb, A-fib/A-flutter (not on anti-coagulation due to fall risk), bradycardia, orthostatic hypotension, pulmonary hypertension, cognitive deficits, hypothyroidism, anxiety, dysphagia,
polymyalgia rheumatica on chronic steroids, chronic ambulatory dysfunction presented to for nausea, vomiting, diarrhea and dehydration. She endorsed dark vomit. Hg has been stable and no dark stools. She was started on fluids and oral vanco. C.
diff (-), other stool cultures still pending, currently nausea and vomiting resolved. Cardiology was consulted for bradycardia with HR on tele in high 30's. Symptoms could be related to symptomatic bradycardia.
Bradycardia
RBBB
-Feels fatigues, cyanotic fingertips, appears chronically ill, but unsure of baseline. No episodes of lightheadedness or dizziness she can recall.
-Hr on tele in high 30's - appears to be sinus, but some strips unclear
-No pauses >3 seconds
-TSH 5.93 10/30/24 on levothyroxine 100 likely non-contributory
-Cont to monitor on tele
Hx A.fib/flutter
Bilateral DVTs
-Cont eliquis 2.5 BID
-Currently appears to be sinus natalya
HFpEF
-Currently compensated
-LVEF 10/30/24 60-65% with dilated RV with reduced systolic function, mild TR, pulm artery pressure 45 mmHg
-Lasix on hold due to CHEY
-Restart lasix when CHEY improves
CHEY on CKD stage 3b
-Lasix on hold
-Restart when Cr improves
-Avoid nephrotoxic agents
-IVF held as cr improving
Orthostatic hypotension
-Cont midodrine 5 BID
Hx CAD
-Cont asa 81
-Denies hx GA despite documented in chart
Hyperkalemia
-K 5.4
-Given one dose lokelma per primary team
Long QTc
-QTc 464
-Avoid QT prolonging agents
Hx cardiac arrest after hip surgery
DVT eliquis
Full code
[2024-11-10 16:00] VITALS: BP 128/61
[2024-11-10 19:56] VITALS: BP 101/40
[2024-11-10 23:25] VITALS: BP 118/56
[2024-11-11 03:04] VITALS: BP 107/49
[2024-11-11] MEDS: SYNTHROID 100 MCG PO (05:31)
[2024-11-11 05:44] VITALS: BMI 22.5
[2024-11-11] MEDS: ZOFRAN 4 MG IV (06:30)
[2024-11-11 07:42] VITALS: BP 103/37
[2024-11-11] MEDS: ELIQUIS 2.5 MG PO ×2 (08:07→20:32)
[2024-11-11] MEDS: VISBIOME 2 CAP PO (08:07)
[2024-11-11] MEDS: IMODIUM 2 MG PO ×2 (08:09→20:32)
[2024-11-11] MEDS: DELTASONE 2.5 MG PO (08:09)
[2024-11-11] MEDS: LOW STRENGTH ASPIRIN 81 MG PO (08:09)
--- NOTE | 2024-11-11 08:19 | W.PN.CD ---
Addendum entered and electronically signed by Maxwell Rodriguez MD 11/11/24 14:40:
Let's resume her Lasix tomorrow.
Addendum entered and electronically signed by Maxwell Rodriguez MD 11/11/24 14:39:
I saw and examined the patient.
The [employer] INSPECT[employer]'s note was reviewed and I agree with the note.
Comment: She has significant sinus bradycardia that is worse than on prior admits. Heart rate in the low 30s with at times junctional rhythm. No pauses over 2.5 seconds. She has had an unexplained fall (months ago) and fatigue. No syncope
otherwise. I suggested she progress to elective pacemker implant. I do not anticipate GI symptoms to improve/resolve with pacing. Pt declines pacemaker. No AFib seen so far.
Original Note:
Today's Communication / Plan
-
Echo
offered pacemaker, but pt declined at this point. Will f/u as outpatient.
Impression / Plan
-
88-year-old female with past medical history of CAD, CKD stage IIIb, A-fib/A-flutter (not on anti-coagulation due to fall risk), bradycardia, orthostatic hypotension, pulmonary hypertension, cognitive deficits, hypothyroidism, anxiety, dysphagia,
polymyalgia rheumatica on chronic steroids, chronic ambulatory dysfunction presented to for nausea, vomiting, diarrhea and dehydration. She endorsed dark vomit. Hg has been stable and no dark stools. She was started on fluids and oral vanco. C.
diff (-), other stool cultures still pending, currently nausea and vomiting resolved. Cardiology was consulted for bradycardia with HR on tele in high 30's with concerns that some of her symptoms were related to bradycardia. Pt also mentioned with
Dr. Morrell that she has had intermittent chest pain over the past few months with episodes lasting an hour or so then disappearing.
Bradycardia with junctional escape rhythm
RBBB
-Feels fatigues, cyanotic fingertips, appears chronically ill, but unsure of baseline. No episodes of lightheadedness, SOB, dizziness she can recall.
-Hr on tele in high 30's - appears to have a junctional escape rhythm
-No pauses >3 seconds
-TSH 5.93 10/30/24 on levothyroxine 100 likely non-contributory
-Offered her a pacemaker - pt currently declines for fear of going under anesthesia - we asked her to f/u in the outpatient setting with Dr. Rodriguez for further discussion as it may improve her quality of life
-Unlikely to be contributing to her current N/V/D
Hx a.fib/flutter
Bilateral DVTs
-Endorses fatigue, denies the above mentioned
-Cont eliquis 2.5 BID for DVTs (previously not on anticoagulation for a.fib due to recurrent falls)
-Currently appears to be bradycardic with elements of a junctional escape rhythm
HFpEF
-Currently compensated
-LVEF 10/30/24 60-65% with dilated RV with reduced systolic function, mild TR, pulm artery pressure 45 mmHg
-GDMT - unable to be on ARB or SGLT2 due to renal function, BP unable to tolerate BB, MRA
-Lasix on hold due to CHEY
-Restart lasix when CHEY improves
-Repeat Echo to eval if RV function improved
CHEY on CKD stage 3b
-Lasix on hold
-Restart when Cr back to baseline
-Avoid nephrotoxic agents
Orthostatic hypotension
-Cont midodrine 5 BID
Hx CAD
-Cont asa 81
-Denies hx NE despite documented in chart
Hyperkalemia
-K 5.4 > 5.3
-Given one dose lokelma per primary team
Long QTc
-QTc 464
-Avoid QT prolonging agents
Hx cardiac arrest after hip surgery
DVT eliquis
Full code
Physical Exam
Vital Signs/Labs
Vital Signs
Temp Pulse Resp BP Pulse Ox
97.5 F 43 18 103/37 99
11/11/24 03:04 11/11/24 07:42 11/11/24 07:42 11/11/24 07:42 11/11/24 07:42
11/10/24 11/11/24 11/12/24
06:59 06:59 06:59
Actual Weight 54.93 kg 55.701 kg
Physical Exam
Constitutional: Comfortable
Cardiovascular: Rhythm & rate is regular (bradycardic ), Pedal edema is absent and Murmur/rub/gallop absent
Respiratory: Respiratory effort normal and Lungs clear to auscul.
GI: Soft, Non tender and Normal bowel sounds
Neuro/Psych: AO x 3
Data Reviewed
-
Date of Service: November 11, 2024
--- NOTE | 2024-11-11 08:20 | PTCARENOTE ---
resident notified of rhythm change- obtaining EKG
--- NOTE | 2024-11-11 09:14 | W.PN.HOSP.TC ---
Today's Communication/Plan
-
She has chronic low heart rate, concern if weakness, dizziness, falls, peripheral cyanosis, nausea, hypotension, f/w EP director of operations home health evaluation today
Check troponin
Imodium for chronci diarreah
Assessment / Plan
Assessment / Plan
Physical Exam
General: Chronically ill looking, No Apparent Distress
HEENT: Normocephalic, Moist mucous membranes and Atraumatic
Respiratory: Clear
Cardiac: S1/S2
GI: Soft, Non-Tender, Non-Distended and Normal Bowel Sounds, obese.
Rectal: NO bleeding.
Musculoskeletal: No Clubbing, No Cyanosis
Neuro: AAO to self and surroundings, she followed commands, Nonfocal/grossly intact
Psych: Calm
# chronic nausea
Seems to resolve
Resume PPI
Stopped IVF
use PRN Zofran
c/w diet
Negative C Diff testing, dc oral vancomycin
# Hyperkalemia, give Lokelma
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
Seems to improve
Stop IVF
- avoid any nephrotoxic
New diagnosis of bilateral Marie DVT
- on Eliquis renal adjusted dose
HX Paroxysmal Atrial fibrillation/A-flutter Hx
HX Nav cardia
- on ASA and Eliquis for recent DVT
She has chronic low heart rate, concern if causing her weakness, dizziness, falls and peripheral cyanosis, hypotension, f/w EP director of operations home health evaluation
Chronic orthostatic hypotension requiring midodrine.
Prior PMHX
Reported hypotension during left hip surgery 2020( no mention of cardiac arrest in records).
CKD
Hypothyroidism; on LT4
Candidal vaginitis
PMR on low-dose of prednisone at 2.5 mg daily
Pulmonary hypertension
Cognitive disorder
Anxiety:
Chronic ambulatory dysfunction: - Uses walker and/or rollator at baseline
History of falls/rhabdo myelosis 2020
Chronic constipation/diarrhea
DVT Px: Eliquis
Full code
Total time spent to see the patient, examine the patient, review data and lab result, discuss treatment plan with patient, nursing staff around 55 minutes
Anticipated Discharge: > 48 hours
Subjective/Interval History
-
Date of Service: November 11, 2024
nausea earlier
No abd pain
Objective Data
-
Labs:
Laboratory Results
11/11/24
06:00
WBC Pending
Hgb Pending
Hct Pending
Plt Count Pending
Sodium Pending
Potassium Pending
Chloride Pending
Carbon Dioxide Pending
BUN Pending
Creatinine Pending
Glucose Pending
Calcium Pending
Vital Signs:
Vital Signs
Temp Pulse Resp BP Pulse Ox
97.5 F 43 18 103/37 99
11/11/24 03:04 11/11/24 07:42 11/11/24 07:42 11/11/24 07:42 11/11/24 07:42
I&O
11/10/24 11/11/24 11/12/24
06:59 06:59 06:59
Intake Total 960 / 960 1080 / 1080
Output Total 100 / 100 200 / 200
Balance 860 / 860 880 / 880
[2024-11-11 09:46] LABS: Hematocrit 44.0 % (37.0-47.0); Hemoglobin 14.5 g/dL (12.0-16.0); Mean Corp Hgb Conc. 33.0 g/dL (33.0-37.0); Mean Corpuscular Volume 88.4 fL (81.0-99.0); Platelet Count 220 10^3/uL (130-400); Red Cell Dist. Width 15.1 % (11.5-14.5)
[2024-11-11 10:31] LABS: Blood Urea Nitrogen 53 mg/dl (7-17); Calcium 8.3 mg/dl (8.4-10.2); Carbon Dioxide 16 mmol/L (22-30); Chloride 109 mmol/L (98-107); Estimated Creatinine Clearance 21 ml/min; Glucose 85 mg/dl (70-99); Potassium 5.3 mmol/L (3.5-5.1); Sodium 137 mmol/L (135-145); eGFR 33.52
[2024-11-11 11:01] VITALS: BP 126/53
[2024-11-11] MEDS: LOKELMA 10 GRAM PO (14:20)
--- NOTE | 2024-11-11 14:39 | W.PN.UPDATE ---
Update Note
Progress Note Update
See progress note.
[2024-11-11 15:00] VITALS: BP 153/57
[2024-11-11 15:23] LABS: Troponin I < 0.012 ng/ml
[2024-11-11 19:51] VITALS: BP 134/48
[2024-11-11] MEDS: NSS (PRESERVATIVE FREE) 10 ML IV (20:31)
[2024-11-11] MEDS: PROTONIX IV 40 MG IV (20:31)
[2024-11-11 23:12] VITALS: BP 122/65
[2024-11-12] MEDS: ZOFRAN 4 MG IV (02:55)
[2024-11-12 03:33] VITALS: BP 125/66
[2024-11-12] MEDS: NSS (PRESERVATIVE FREE) 10 ML IV ×2 (04:40→20:28)
[2024-11-12] MEDS: PROTONIX IV 40 MG IV ×2 (04:41→20:21)
[2024-11-12] MEDS: SYNTHROID 100 MCG PO (05:47)
[2024-11-12 06:00] VITALS: BMI 22.4
[2024-11-12 07:00] VITALS: BP 107/50
--- NOTE | 2024-11-12 07:18 | W.PN.CD ---
Addendum entered and electronically signed by Maxwell Rodriguez MD 11/12/24 16:57:
I saw and examined the patient.
The COMMERCIAL GLAZIER's note was reviewed and I agree with the note.
Comment: I again reviewed the recommendation for pacemaker implant and the patient politely declined.
Original Note:
Today's Communication / Plan
-
Okay to restart home lasix 20mg daily from cardiology perspective but may hold from hospitalist perspective in setting of diarrhea/volume loss
Impression / Plan
-
88-year-old female with past medical history of CAD, CKD stage IIIb, A-fib/A-flutter (not on anti-coagulation due to fall risk), bradycardia, orthostatic hypotension, pulmonary hypertension, cognitive deficits, hypothyroidism, anxiety, dysphagia,
polymyalgia rheumatica on chronic steroids, chronic ambulatory dysfunction presented to for nausea, vomiting, diarrhea and dehydration. She endorsed dark vomit. Hg has been stable and no dark stools. She was started on fluids and oral vanco. C.
diff (-), other stool cultures still pending, currently nausea and vomiting resolved. Cardiology was consulted for bradycardia with HR on tele in high 30's with concerns that some of her symptoms were related to bradycardia. Pt also mentioned with
Dr. Morrell that she has had intermittent chest pain over the past few months with episodes lasting an hour or so then disappearing.
Bradycardia with junctional escape rhythm
RBBB
-Feels fatigues, cyanotic fingertips, appears chronically ill, but unsure of baseline. No episodes of lightheadedness, SOB, dizziness she can recall.
-Hr on tele in high 30's - appears to have a junctional escape rhythm
-No pauses >3 seconds
-TSH 5.93 10/30/24 on levothyroxine 100 likely non-contributory
-Offered her a pacemaker -history patient refused pacemaker however wanted to discuss with daughters. Today continues to refuse pacemaker for fear of dying on operating table.
-The difficulty is her assisted living facility refuses to take her back with HR in high 30's low 40s - continue discussions regarding pacemaker. Primary team plans to bring up the idea of hospice or palliative care if continues to decline pacemaker
Hx a.fib/flutter
Bilateral DVTs
-Endorses fatigue, denies the above mentioned
-Cont eliquis 2.5 BID for DVTs (previously not on anticoagulation for a.fib due to recurrent falls)
-Currently appears to be bradycardic with elements of a junctional escape rhythm
HFpEF
-Currently compensated
-10/30/24 LVEF 60-65% with dilated RV with reduced systolic function, mild TR, pulm artery pressure 45 mmHg
-11/11/2024 LVEF increase to 65-70%. Wall motion consistent with conduction abnormality. Enlarged right ventricular size. Severely Elated left atrial. Pulmonary artery pressure 55 to 60 mmHg.
-GDMT - unable to be on ARB or SGLT2 due to renal function, BP unable to tolerate BB, MRA.
-Okay to restart lasix from cardiology perspective with Cr now back to baseline
CHEY on CKD stage 3b
-resolved
-Okay to restart lasix
Orthostatic hypotension
-Cont midodrine 5 BID
Hx CAD
-Cont asa 81
-Denies hx [place] despite documented in chart
Hyperkalemia
-K 5.4 > 5.3
-Given one dose lokelma per primary team
Long QTc
-QTc 475
-Avoid QT prolonging agents
Hx cardiac arrest after hip surgery
DVT eliquis
Full code
As patient is declining pacemaker at this time and bradycardia unlikely to be contributing to current symptoms, cardiology is signing off. Please reach out for any additional questions. Thank you for involving us in the care of this patient.
Physical Exam
Vital Signs/Labs
Vital Signs
Temp Pulse Resp BP Pulse Ox
97.5 F 41 18 125/66 98
11/12/24 03:33 11/12/24 03:33 11/12/24 03:33 11/12/24 03:33 11/12/24 03:33
11/11/24 11/12/24 11/13/24
06:59 06:59 06:59
Actual Weight 55.701 kg 55.429 kg
11/11/24 09:41
11/11/24 09:41
LAB Results
11/11/24
14:44
Troponin I < 0.012
Physical Exam
Constitutional: Comfortable
Cardiovascular: Rhythm & rate is regular (bradycardic )
Respiratory: Respiratory effort normal and Lungs clear to auscul.
GI: Soft, Non tender and Normal bowel sounds
Neuro/Psych: AO x 3
Data Reviewed
-
Date of Service: November 12, 2024
[2024-11-12] MEDS: ELIQUIS PO (08:00)
--- NOTE | 2024-11-12 08:19 | CON.GI ---
Addendum entered and electronically signed by Luana Angeles DO 11/12/24 09:58:
The patient was seen and examined by me independently in collaboration with the nurse practitioner.
Past medical history/social history/medications/allergies/family history reviewed.
Lab data and imaging data reviewed.
Briefly, patient is an 88 y.o. female with CAD, HFpEF, CKD, afib/flutter on Eliquis, prior CA, bradycardia, orthostatic hypotension on midodrine, pulm HTN, congnitive deficits, prior subdural hemorrhage, hypothyroidism, anxiety, PMR, ambulatory
dysfunction,fall with rhabdo 2020, anxiety admitted with complaints of N/V, diarrhea, found to be dehydrated with CHEY on CKD. GI consulted for chronic nausea and diarrhea.
Intermittent diarrhea following periods of constipation, consistent with overflow diarrhea. Nausea could be 2/2 to large stool burden vs. medication side-effect vs. anasarca vs. UTI vs. cardiac. She endorses improvement with antiemetics
Plan
-check abdominal xray to assess stool burden
-continue with antiemetics, she states her symptoms are improved and able to eat with them
-suspect nausea is multifactorial given her chronic medical comorbidites
-will f/u xray to provide recs based on findings
Original Note:
Consultation
-
Date/Time Consultation Requested: 11/12/24629
Date/Time Consultation Performed: 11/12/24 0815
Requesting Provider: Freda Sal MD
Performing Provider: NII Cole, Allison Angeles DO
Reason for Consultation: nausea
Medical History
Chief Complaint / HPI
Chief Complaint: nausea
History of Present Illness:
Pt is a 88yo presents with hx CAD, HFpEF, CKD, afib/flutter on Eliquis, prior CA, bradycardia, orthostatic hypotension on midodrine, pulm HTN, congnitive deficits, prior subdural hemorrhage, hypothyroidism, anxiety, PMR, ambulatory dysfunction, fall
with rhabdo 2020, anxiety with recent admission to [facility] in [place] in September with nausea, vomiting and diarrhea. Stool studies neg, and noted with UTI and started on Imodium. Ct a/p without IV contrast cholelithiasis with GB thickening,
moderate b/l effusion, moderate anasarca, diffuse bladder thickening. She then was admitted 10/31 [facility] chest pain with neg trop. Work up with small pleural effusion and PE ruled out but concerned for decompensated heart failure. She also had
loose stool with c-diff ag + tox neg with 5 day course of dificid and b/l DVT, candidal vaginitis with local fungal treatment. She now returns 11/09 with nausea/vomiting and diarrhea with severe dehydration and acute on chronic kidney disease. On
admission labs with normal CBC, creat up to 1.7, BUN 63. CXR with concern for PNA. She is also noted with significant bradycardia with HR 30-40 and pt declining pacer.
In review with patient she has had nausea for possibly several months but was unsure of timeline. She states not lifelong. It will come and go and noted on Sunday vomiting brown emesis possible ice cream she has ingested. She currently is
feeling better and eating. She also admits to diarrhea and constipation. She will have several days of no stool then loose stool. She does admit to feeling constipated at time. She admits to some wt loss but denies dysphagia, GERD, abdominal
pain, or rectal bleeding. hx colonoscopy stable years ago.
Past Medical History
Past Medical History: Arrhythmias (afib on eliquis, bradicardia), CAD, CHF, Hypercholesterolemia, Hypothyroidism, CA (2020), Renal Failure (CKD), Psychiatric (anxiety) and Other (ambulatory dysfunction, PMR, venous, bradicardia, orthostasis, pulm
HTN, congitive deficits, subdural hematoma, fall with rhabdo 2020)
Past Surgical History: Appendectomy, Orthopedic (hip hemiarthroplasty) and Other (breast biopsy )
Social History
Tobacco: Non-Smoker
Alcohol: None
Drug: None
Living: Skilled Nursing (lives [facility] )
Employment: Retired
Family History
Family History: Other (denies family hx GI issues)
Allergies / Home Medications
Allergy/AdvReac Type Severity Reaction Status Date / Time
No Known Allergies Allergy Unverified 10/29/24 17:47
�Medication �Instructions �Recorded
acetaminophen 325 mg tablet 650 mg PO Q6HPRN PRN mild pain 11/09/24
(Tylenol)
apixaban 5 mg tablet (Eliquis) 5 mg PO BID 11/09/24
aspirin 81 mg chewable tablet 81 mg PO DAILY 11/09/24
docusate sodium 100 mg capsule 100 mg PO HS 11/09/24
(Colace)
furosemide 20 mg tablet (Lasix) 20 mg PO DAILY 11/09/24
levothyroxine 100 mcg tablet 100 mcg PO DAILY 11/09/24
midodrine 5 mg tablet 5 mg PO BID 11/09/24
ondansetron HCl 4 mg tablet 4 mg PO Q6H PRN nausea/vomiting 11/09/24
pantoprazole 20 mg tablet,delayed 20 mg PO DAILY 11/09/24
release (Protonix)
polyethylene glycol 3350 17 gram 17 g PO DAILY 11/09/24
oral powder packet (Miralax)
prednisone 2.5 mg tablet 2.5 mg PO DAILY 11/09/24
Review of Systems
-
History Source: Patient
Constitutional: Reports Weight Loss (few kg since last admission)
EENT: Reports No Symptoms
Respiratory: Reports No Symptoms
Cardiac: Reports No Symptoms
Abdomen/GI: Reports Nausea, Vomiting, Diarrhea and Constipated
: Reports No Symptoms
Musculoskeletal: Reports No Symptoms
Skin: Reports Other (recent vaginitis )
Neurological: Reports Weakness (walker for ambulation)
Endocrine: Reports No Symptoms
Hematologic/Lymphatic: Reports No Symptoms
Vital Signs
Temp Pulse Resp BP Pulse Ox
97.0 F 38 16 107/50 99
11/12/24 07:00 11/12/24 07:00 11/12/24 07:00 11/12/24 07:00 11/12/24 07:00
Physical Exam
Exam
General: Well Developed, Well Nourished and Other (thin elderly female)
HEENT: Normocephalic and Anicteric
Respiratory: Other (decreased )
Cardiac: Other (bradicardia )
GI: Soft, Non Tender and Non Distended
Musculoskeletal: No Clubbing and No Cyanosis
Skin: Warm and Dry
Neuro: Awake, Alert and AO x 3 (occasional forgetful to dates but conversant )
Psych: Calm
Results
WBC 4.9 10^3/uL (4.8-10.8) 11/11/24 09:41
Hgb 14.5 g/dL (12.0-16.0) 11/11/24 09:41
Hct 44.0 % (37.0-47.0) 11/11/24 09:41
MCV 88.4 fL (81.0-99.0) 11/11/24 09:41
Plt Count 220 10^3/uL (130-400) 11/11/24 09:41
Absolute Neuts (auto) 3.3 10^3/uL (1.4-6.5) 11/09/24 16:43
Sodium 137 mmol/L (135-145) 11/11/24 09:41
Potassium 5.3 mmol/L (3.5-5.1) H 11/11/24 09:41
Chloride 109 mmol/L (98-107) H 11/11/24 09:41
Carbon Dioxide 16 mmol/L (22-30) L 11/11/24 09:41
BUN 53 mg/dl (7-17) H 11/11/24 09:41
Creatinine 1.5 mg/dL (0.6-1.0) H 11/11/24 09:41
Calcium 8.3 mg/dl (8.4-10.2) L 11/11/24 09:41
Total Bilirubin 0.5 mg/dl (0.2-1.3) 11/09/24 16:43
AST 13 U/L (14-36) L 11/09/24 16:43
ALT < 10 U/L (0-35) 11/09/24 16:43
Alkaline Phosphatase 54 U/L (38-126) 11/09/24 16:43
Lipase 91 U/L (23-300) 11/09/24 16:43
Diagnostic Image Results:
0 CR Chest Portable - 1 View
Moderate loculated left pleural effusion. Progressed. Underlying pneumonia not excluded
Mild cardiomegaly. Stable.
Mild opacification of the right lower lung field concerning for pneumonia. New
10/30/24 CT Chest PE Study
No definite evidence for pulmonary embolism.
Moderate right and small left pleural effusion. Adjacent parenchymal consolidation, atelectasis versus pneumonia. Bronchial wall thickening and endoluminal opacity, consistent with bibasilar mucous plugging. The associated pulmonary artery segments
appear attenuated and diminished in caliber, as opposed to demonstrating focal contrast cutoff as would be expected with focal emboli. This suggests ventilation/perfusion mismatch, with blood flow redirected away from atelectatic lung.
Pulmonary artery branching order level of the most proximal pulmonary embolism: N/A
Findings suggest elevated right-sided heart pressure and/or tricuspid insufficiency.
09/08/24 [facility]- cT A/p without contrast
cholelithiasis with GB thickening, moderate b/l effusion, moderate anasarca, diffuse bladder thickening
Prior GI Procedures:
EGD: none
Colonoscopy: years ago did not recall any abnormalities
Assessment / Plan
-
Pt is a 88yo presents with hx CAD, HFpEF, CKD, afib/flutter on Eliquis, prior CA, bradycardia, orthostatic hypotension on midodrine, pulm HTN, congnitive deficits, prior subdural hemorrhage, hypothyroidism, anxiety, PMR, ambulatory dysfunction,fall
with rhabdo 2020, anxiety with recent admission to [facility] in [place] in September with nausea, vomiting and diarrhea. Stool studies neg, and noted with UTI and started on Imodium. Ct a/p without IV contrast cholelithiasis with GB thickening,
moderate b/l effusion, moderate anasarca, diffuse bladder thickening. She then was admitted 10/31 [facility] chest pain with neg trop. Work up with small pleural effusion and PE ruled out but concerned for decompensated heart failure. She also had
loose stool with c-diff ag + tox neg with 5 day course of dificid and b/l DVT, candidal vaginitis with local fungal treatment. She now returns 11/09 with nausea/vomiting and diarrhea with severe dehydration and acute on chronic kidney disease. On
admission labs with normal CBC, creat up to 1.7, BUN 63. CXR with concern for PNA. She is also noted with significant bradycardia with HR 30-40 and pt declining pacer.
-nausea/vomiting - intermittent
-diarrhea/constipation alternating
-bradycardia/orthostasis - declining pacer
-hyperkalemia
-acute on chronic CKD
-recent DVT
-recent c-diff ag + tox neg with dicifid course
-09/2024 Ct a/p without IV contrast cholelithiasis with GB thickening, moderate b/l effusion, moderate anasarca, diffuse bladder thickening
-admit [facility] 09/2024 N/V/D with + UTI
-admits 10/31 [place] [facility]
other med problems:
- CAD
- HFpEF
-CKD
- afib/flutter on Eliquis
- prior CA
-pulm HTN
cognitive deficits,
-prior subdural hemorrhage
-hypothyroidism
-anxiety
- PMR
-fall with rhabdo 2020
PLAN:
etiology of symptoms related to underlying constipation with overflow vs other-- pt also with significant bradicardia with periods of hypotension may also be leading to nausea
symptoms may have started in September with UTi/constipation then Imodium use
c-diff neg stool cx pending
pt feeling better today -- currently eating diet without difficulty and had liquid stool with rectal tube in place to monitor symptoms
will check abd X ray for stool burden- may need increased bowel regiment--
for US abdomen with prior noted GB thickening though stable LFT's
s/p cards eval pt declining pacer
add TSH
med team to correct K
-
-
Thank you for consultation and allowing me to participate in the patient's care. Please call the semi conductor assembler GI physician during the after hours with any questions or concerns.
--- NOTE | 2024-11-12 09:30 | W.PN.HOSP.TC ---
Today's Communication/Plan
-
US of abdomen
GI consult per daughter request
Repeat BMP
Unable to safely discharge
Assessment / Plan
Assessment / Plan
Physical Exam
General: Chronically ill looking, No Apparent Distress
HEENT: Normocephalic, Moist mucous membranes and Atraumatic
Respiratory: Clear
Cardiac: S1/S2, bradycardia
GI: Soft, Non-Tender, Non-Distended and Normal Bowel Sounds, obese.
Rectal: NO bleeding.
Musculoskeletal: No Clubbing, No Cyanosis
Neuro: AAO to self and surroundings, she followed commands, Nonfocal/grossly intact
Psych: Calm, tearful
# Symptomatic bradycardia
HX Paroxysmal Atrial fibrillation/A-flutter Hx
HX Nav cardia
- on ASA and Eliquis for recent DVT
She has chronic low heart rate, concern because she has weakness, dizziness, falls and peripheral cyanosis, hypotension, f/w EP clinical review specialist evaluation. She is offered to have pacemaker but refuses ( I do not want to ton the table) despite
explaining the procedure. We can not discharge her to NH with low heart rate
-Unable to discharge with symptomatic bradycardia- HR 37- 45 ( NH will not accept, remains high risk for re-admission). Patient wants to be full code and she started crying upon discussion goal of care, she was encouraged to talk to her daughter.
Can discharge with bradycardia if goal of care is comfort, will have to discuss that option with briefcase sewer and [facility] staff. Per daughter, staff at [facility] keeps sending her to hospital for weakness, nausea, dizziness ( variety of complaints).
#Chronic orthostatic hypotension requiring midodrine.
# chronic nausea
Seems to resolve
Order US of abdomen
Resumed PPI
Stopped IVF
use PRN Zofran
c/w diet
Daughter wanted GI to see
Negative C Diff testing, dc oral vancomycin
# Hyperkalemia, give Lokelma
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
Seems to improve
Stop IVF
- avoid any nephrotoxic
# New diagnosis of bilateral Marie DVT
- on Eliquis renal adjusted dose
Prior PMHX
Reported hypotension during left hip surgery 2020( no mention of cardiac arrest in records).
CKD
Hypothyroidism; on LT4
Candidal vaginitis
PMR on low-dose of prednisone at 2.5 mg daily
Pulmonary hypertension
Cognitive disorder
Anxiety:
Chronic ambulatory dysfunction: - Uses walker and/or rollator at baseline
History of falls/rhabdo myelosis 2020
Chronic constipation/diarrhea
DVT Px: Eliquis
Full code
Total time spent to see the patient, examine the patient, review data and lab result, discuss treatment plan with patient, nursing staff around 55 minutes
Anticipated Discharge: > 48 hours
Subjective/Interval History
-
Date of Service: November 12, 2024
No chest pain
No sob
no nausea
tearful about need for pacemaker
Objective Data
-
Vital Signs:
Vital Signs
Temp Pulse Resp BP Pulse Ox
97.0 F 38 16 107/50 99
11/12/24 07:00 11/12/24 07:00 11/12/24 07:00 11/12/24 07:00 11/12/24 07:00
I&O
11/11/24 11/12/24 11/13/24
06:59 06:59 06:59
Intake Total 1080 / 1080 360 / 360
Output Total 200 / 200
Balance 880 / 880 360 / 360
[2024-11-12 11:00] VITALS: BP 119/48
[2024-11-12 14:20] LABS: TSH 6.26 uIU/ml (0.47-4.68)
[2024-11-12] MEDS: LASIX 20 MG PO (16:02)
[2024-11-12] MEDS: VISBIOME 2 CAP PO (16:02)
[2024-11-12] MEDS: IMODIUM 2 MG PO (16:03)
[2024-11-12] MEDS: DELTASONE 2.5 MG PO (16:03)
[2024-11-12] MEDS: LOW STRENGTH ASPIRIN 81 MG PO (16:03)
--- NOTE | 2024-11-12 16:59 | PTCARENOTE ---
Addendum entered by Philly Munoz RN 11/14/24 12:04:
Patient refusing pacemaker. I did discuss with Dr. Bernal patient's dizziness, peripheral cyanosis on fingertips and toes. nausea and weakness. no stool today, on nurse monitoring heart rate in 30's to 40's. patient tolerating low residue diet,
turns with assist x2, vss, will continue to monitor.
Original Note:
Patient refusing pacemaker. I did discuss with Dr. Bernal patient's dizziness, peripheral cyanosis on fingertips, feet and hands. nausea and weakness. no stool today, on nurse monitoring heart rate in 30's to 40's. patient tolerating low residue
diet, turns with assist x2, vss, will continue to monitor.
--- NOTE | 2024-11-12 17:06 | W.PN.UPDATE ---
Update Note
Progress Note Update
US and abd film reviewed small to moderate stool but appear with stool in rectum will hold Lomotil and add dulcolax supp and senna tonight and reassess in AM. US with non specific GB thickening and mobile gallstone. reassess in AM as was tolerating
food without nausea this am. If any recurrent pain consider surg eval. Will reorder LFT's for am.
[2024-11-12] MEDS: DULCOLAX 10 MG RECTAL (17:38)
--- NOTE | 2024-11-12 17:40 | PTCARENOTE ---
Dulcolax suppository administered as ordered, will monitor for effectiveness.
[2024-11-12 19:00] VITALS: BP 114/53
[2024-11-12] MEDS: ELIQUIS 2.5 MG PO (20:21)
[2024-11-12] MEDS: SENOKOT 17.2 MG PO (22:51)
[2024-11-12 23:00] VITALS: BP 136/55
[2024-11-13 03:00] VITALS: BP 138/57
[2024-11-13 03:28] VITALS: BMI 22.3
[2024-11-13] MEDS: SYNTHROID 100 MCG PO (06:09)
[2024-11-13 07:00] VITALS: BP 147/61
--- NOTE | 2024-11-13 08:09 | W.PN.GI.CBS2 ---
Today's Communication / Plan
-
Symptoms much improved with bowel regimen and antiemetics. f/u LFTs, consider HIDA. GI will sign off, please call with questions.
Assessment / Plan
-
Pt is a 88yo presents with hx CAD, HFpEF, CKD, afib/flutter on Eliquis, prior MN, bradycardia, orthostatic hypotension on midodrine, pulm HTN, congnitive deficits, prior subdural hemorrhage, hypothyroidism, anxiety, PMR, ambulatory dysfunction,fall
with rhabdo 2020, anxiety with recent admission to [facility] in [place] in September with nausea, vomiting and diarrhea. Stool studies neg, and noted with UTI and started on Imodium. Ct a/p without IV contrast cholelithiasis with GB thickening,
moderate b/l effusion, moderate anasarca, diffuse bladder thickening. She then was admitted 10/31 [facility] chest pain with neg trop. Work up with small pleural effusion and PE ruled out but concerned for decompensated heart failure. She also had
loose stool with c-diff ag + tox neg with 5 day course of dificid and b/l DVT, candidal vaginitis with local fungal treatment. She now returns 11/09 with nausea/vomiting and diarrhea with severe dehydration and acute on chronic kidney disease. On
admission labs with normal CBC, creat up to 1.7, BUN 63. CXR with concern for PNA. She is also noted with significant bradycardia with HR 30-40 and pt declining pacer.
-nausea/vomiting - intermittent
-diarrhea/constipation alternating
-bradycardia/orthostasis - declining pacer
-hyperkalemia
-acute on chronic CKD
-recent DVT
-recent c-diff ag + tox neg with dicifid course
-09/2024 Ct a/p without IV contrast cholelithiasis with GB thickening, moderate b/l effusion, moderate anasarca, diffuse bladder thickening
-admit [facility] 09/2024 N/V/D with + UTI
-admits 10/31 [facility]
other med problems:
- CAD
- HFpEF
-CKD
- afib/flutter on Eliquis
- prior MN
-pulm HTN
cognitive deficits,
-prior subdural hemorrhage
-hypothyroidism
-anxiety
- PMR
-fall with rhabdo 2020
PLAN:
-hold lomotil-- this is exacerbating underlying constipation. She is not having true diarrhea, it is overflow
-needs bowel regimen on discharge, would recommend starting with Senokot 2 tabs qH2, dulcolax supp. if no BM after 2-3 days. Can add 17 g miralax prn. Outpatient f/u for further management of her constipation
-c/w with PPI, antiemetics prn
-US with nonspecific GB thickening and mobile gallstone, LFTs normal on admission. Repeat LFTs pending, if elevated, would consider HIDA/surgical eval
GI will sign off, please call with questions.
Subjective
Subjective
Date of Service: November 13, 2024
Abdominal x-ray showed mild to moderate stool burden, upon my personal review of the film it looks like she had some stool in the right side of the her colon as well as rectum. She received a suppository last night. Currently offers no complaints
that her nausea is completely resolved. She is tolerating a diet.
Objective
Data Reviewed
Laboratory Data:
Laboratory Results
11/11/24 09:41
11/13/24 06:00
Laboratory Results
Total Bilirubin Cancelled 11/13/24 06:00
AST Cancelled 11/13/24 06:00
ALT Cancelled 11/13/24 06:00
Alkaline Phosphatase Cancelled 11/13/24 06:00
Lipase 91 U/L (23-300) 11/09/24 16:43
Vital Signs and I&O:
Vital Signs
Temp Pulse Resp BP Pulse Ox
97.6 F 43 16 147/61 99
11/13/24 07:00 07/10/25 07:00 11/13/24 07:00 11/13/24 07:00 11/13/24 07:00
I&O
11/12/24 11/13/24 11/14/24
06:59 06:59 06:59
Intake Total 360 / 360 380 / 380 240 / 240
Balance 360 / 360 380 / 380 240 / 240
Physical Exam
Physical Exam
HEENT: Anicteric and Moist mucous membranes
GI: Soft, Non Distended, Non Tender and Normal Bowel Sounds
--- NOTE | 2024-11-13 08:43 | W.PN.HOSP.TC ---
Addendum entered and electronically signed by Freda Sal MD 11/13/24 09:47:
addendum
Senior Linux Engineer Dr Cao spoke with pt and she wants pacemaker now and agrees to do blood work
Will reach out to daughter Meron to update her
End
Original Note:
Today's Communication/Plan
-
Patient refuses blood work, wants to go back to [place]
She denies nausea or abdominal pain
dc today
Assessment / Plan
Assessment / Plan
Physical Exam
General: Chronically ill looking, No Apparent Distress
HEENT: Normocephalic, Moist mucous membranes and Atraumatic
Respiratory: Clear
Cardiac: S1/S2, bradycardia
GI: Soft, Non-Tender, Non-Distended and Normal Bowel Sounds, obese.
Rectal: NO bleeding.
Musculoskeletal: No Clubbing, No Cyanosis
Neuro: AAO to self and surroundings, she followed commands, Nonfocal/grossly intact
Psych: Calm, not anxious
# Symptomatic bradycardia
HX Paroxysmal Atrial fibrillation/A-flutter Hx
HX Nav cardia
- on ASA and Eliquis for recent DVT
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 She is offered to have pacemaker but refuses daughters are aware.
#Chronic orthostatic hypotension on midodrine.
# chronic nausea
Seems to resolve, she denies nausea for two days now
No acute findings on US of abdomen. X ray no stool impaction
Possible gall bladder think wall on US but pt does not have abdominal pain or tenderness on exam.
c/w PPI upon discharge.
use PRN Zofran
c/w diet
Daughter wanted GI to see, GI recommend to c/w PPI, can follow in office. Dr Angeles saw the pt today, I updated her that pt refused blood work or GI procedures.
Negative C Diff testing, dc oral vancomycin
# Hyperkalemia, given Lokelma
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
Seems to improve
Stop IVF
- avoid any nephrotoxic
# New diagnosis of bilateral Marie DVT
- on Eliquis renal adjusted dose
Prior PMHX
Reported hypotension during left hip surgery 2020( no mention of cardiac arrest in records).
CKD
Hypothyroidism; on LT4
Candidal vaginitis
PMR on low-dose of prednisone at 2.5 mg daily
Pulmonary hypertension
Cognitive disorder
Anxiety:
Chronic ambulatory dysfunction: - Uses walker and/or rollator at baseline
History of falls/rhabdo myelosis 2020
Chronic constipation/diarrhea
DVT Px: Eliquis
Full code
Total discharge time spent to see the patient, examine the patient, review data and lab result, discuss discharge plan with patient, nursing staff around 67 minutes
Anticipated Discharge: Today
Subjective/Interval History
-
Date of Service: November 13, 2024
She denies abdominal pain or sob
No nausea
she refuses blood work or furthe rtests feels ready to leave the hospital
Objective Data
-
Labs:
Laboratory Results
11/13/24
06:00
Sodium Cancelled
Potassium Cancelled
Chloride Cancelled
Carbon Dioxide Cancelled
BUN Cancelled
Creatinine Cancelled
Glucose Cancelled
Calcium Cancelled
Total Bilirubin Cancelled
AST Cancelled
ALT Cancelled
Alkaline Phosphatase Cancelled
Vital Signs:
Vital Signs
Temp Pulse Resp BP Pulse Ox
97.6 F 43 16 147/61 99
11/13/24 07:00 11/13/24 07:00 11/13/24 07:00 11/13/24 07:00 11/13/24 08:28
I&O
07/01/2911/13/24 11/14/24
06:59 06:59 06:59
Intake Total 360 / 360 380 / 380 240 / 240
Balance 360 / 360 380 / 380 240 / 240
--- NOTE | 2024-11-13 08:53 | CM ---
Addendum entered by Magdalena Cole 11/13/24 11:58:
TT to Dr. Sal requesting orders for PT and OT evaluation.
Original Note:
Pt admitted from [facility] on 11/09/2024; VM left for pt's daughter on 11/10/2024 requesting return call with no response.
CM called and left a voicemail this AM for daughter Meron Andres [phone], requesting return call.
Await response from pt's daughter to discuss discharge plans. Need PT/OT evals to determine of pt can return to [facility], or will need SNF.
[2024-11-13] MEDS: DELTASONE 2.5 MG PO (10:34)
[2024-11-13] MEDS: PROTONIX IV 40 MG IV ×2 (10:35→20:49)
[2024-11-13] MEDS: LASIX 20 MG PO (10:35)
[2024-11-13] MEDS: LOW STRENGTH ASPIRIN 81 MG PO (10:35)
[2024-11-13] MEDS: ELIQUIS 2.5 MG PO (10:35)
[2024-11-13] MEDS: NSS (PRESERVATIVE FREE) 10 ML IV ×2 (10:35→20:48)
[2024-11-13] MEDS: VISBIOME 2 CAP PO (10:37)
[2024-11-13 11:00] VITALS: BP 109/59
--- NOTE | 2024-11-13 11:14 | W.PN.CD ---
Today's Communication / Plan
-
-After a long discussion with the patient this a.m., she is now agreeable to undergo permanent pacemaker implantation.
-Patient is also now agreeable to have laboratory blood work drawn.
-Will arrange permanent pacemaker implantation for tomorrow.
-NPO after midnight.
-Hold Antonio blackight and tomorrow a.m.
Impression / Plan
-
88-year-old female with past medical history of CAD, CKD stage IIIb, A-fib/A-flutter (not on anti-coagulation due to fall risk), bradycardia, orthostatic hypotension, pulmonary hypertension, cognitive deficits, hypothyroidism, anxiety, dysphagia,
polymyalgia rheumatica on chronic steroids, chronic ambulatory dysfunction presented to for nausea, vomiting, diarrhea and dehydration. She endorsed dark vomit. Hg has been stable and no dark stools. She was started on fluids and oral vanco. C.
diff (-), other stool cultures still pending, currently nausea and vomiting resolved. Cardiology was consulted for bradycardia with HR on tele in high 30's with concerns that some of her symptoms were related to bradycardia. Pt also mentioned with
Dr. Morrell that she has had intermittent chest pain over the past few months with episodes lasting an hour or so then disappearing.
Bradycardia with junctional escape rhythm
RBBB
-Feels fatigues, cyanotic fingertips, appears chronically ill, but unsure of baseline. No episodes of lightheadedness, SOB, dizziness she can recall.
-Hr on tele in high 30's - appears to have a junctional escape rhythm
-No pauses >3 seconds
-TSH 5.93 10/30/24 on levothyroxine 100 likely non-contributory
-After a long discussion with the patient this a.m., she is now agreeable to undergo permanent pacemaker implantation.
-Patient is also now agreeable to have laboratory blood work drawn.
-Will arrange permanent pacemaker implantation for tomorrow.
-NPO after midnight.
Hx a.fib/flutter
Bilateral DVTs
-Endorses fatigue, denies the above mentioned
-Cont eliquis 2.5 BID for DVTs (previously not on anticoagulation for a.fib due to recurrent falls); hold Eliquis tonight and tomorrow a.m.
-Currently appears to be bradycardic with elements of a junctional escape rhythm
- Pacemaker implantation tomorrow as above.
HFpEF
-Currently compensated
-10/30/24 LVEF 60-65% with dilated RV with reduced systolic function, mild TR, pulm artery pressure 45 mmHg
-11/11/2024 LVEF increase to 65-70%. Wall motion consistent with conduction abnormality. Enlarged right ventricular size. Severely Elated left atrial. Pulmonary artery pressure 55 to 60 mmHg.
-GDMT - unable to be on ARB or SGLT2 due to renal function, BP unable to tolerate BB, MRA.
-Continue Lasix 20 mg PO daily.
CHEY on CKD stage 3b
-resolved
Orthostatic hypotension
-Cont midodrine 5 BID
Hx CAD
-Cont asa 81
-Denies hx [place] despite documented in chart
Hyperkalemia
-K 5.4 > 5.3
-Given one dose lokelma per primary team
Long QTc
-QTc 475
-Avoid QT prolonging agents
Hx cardiac arrest after hip surgery
DVT eliquis
Full code
Physical Exam
Vital Signs/Labs
Vital Signs
Temp Pulse Resp BP Pulse Ox
97.5 F 44 17 109/59 97
11/13/24 11:00 11/13/24 11:00 11/13/24 11:00 11/13/24 11:00 11/13/24 11:00
11/12/24 11/13/24 11/14/24
06:59 06:59 06:59
Actual Weight 55.429 kg 55.338 kg
11/11/24 09:41
11/13/24 06:00
TSH 6.26 uIU/ml (0.47-4.68) H 11/11/24 09:41
LAB Results
11/11/24
14:44
Troponin I < 0.012
Physical Exam
Constitutional: No acute distress and Comfortable
EENT: Anicteric
Cardiovascular: S1S2 is normal and Other (Regular rhythm, bradycardic)
Respiratory: Respiratory effort normal and Lungs clear to auscul.
GI: Soft
Neuro/Psych: AO x 3
Other: Skin (warm)
Data Reviewed
-
Date of Service: November 13, 2024
EKG: Tracing Personally Visualized and interpreted (Telemetry: Sinus bradycardia at 30s)
Echo: Tracing Personally Visualized and interpreted (LVEF 65-70%; enlarged right ventricular size, mildly reduced right ventricular systolic function; severe biatrial enlargement; mild to moderate TR, estimated PAP 55-60 mmHg.)
Medical Tests (PFT, Pathology etc): Discussed with Physician (Primary Hospitalist), Discussed with Nurse and Discussed with Patient
Labs: Labs Reviewed by me
[2024-11-13 15:00] VITALS: BP 115/53
--- NOTE | 2024-11-13 16:39 | CM ---
Pt not cleared for discharge today; plan for pacemaker placement tomorrow.
Follow for discharge needs s/p pacer
Plan: Discharge to [facility] when medically cleared. Watch for SNF needs.
[2024-11-13 20:55] VITALS: BP 126/84
[2024-11-13 23:00] VITALS: BP 122/80
[2024-11-14] VITALS (12 sets, daily range): BP systolic 100–120; BP diastolic 45–73; BMI 22.3
[2024-11-14] MEDS: SYNTHROID 100 MCG PO (05:38)
[2024-11-14 07:24] LABS: Hematocrit 41.1 % (37.0-47.0); Hemoglobin 14.1 g/dL (12.0-16.0); Mean Corp Hgb Conc. 34.3 g/dL (33.0-37.0); Mean Corpuscular Volume 84.7 fL (81.0-99.0); Platelet Count 160 10^3/uL (130-400); Red Cell Dist. Width 14.8 % (11.5-14.5)
[2024-11-14 07:45] LABS: Blood Urea Nitrogen 49 mg/dl (7-17); Calcium 8.0 mg/dl (8.4-10.2); Carbon Dioxide 20 mmol/L (22-30); Chloride 111 mmol/L (98-107); Estimated Creatinine Clearance 24 ml/min; Glucose 89 mg/dl (70-99); Potassium 4.6 mmol/L (3.5-5.1); Sodium 137 mmol/L (135-145); eGFR 39.80
[2024-11-14] MEDS: LOW STRENGTH ASPIRIN PO (08:22)
[2024-11-14] MEDS: DELTASONE PO (08:22)
[2024-11-14] MEDS: LASIX PO (08:22)
--- NOTE | 2024-11-14 08:22 | PTCARENOTE ---
patient refused oral am medications and verbalized that she needs to eat before she takes them or they will cause 'upset stomach.'
[2024-11-14] MEDS: NSS (PRESERVATIVE FREE) 10 ML IV ×2 (08:23→20:08)
[2024-11-14] MEDS: PROTONIX IV 40 MG IV ×2 (08:23→20:08)
[2024-11-14] MEDS: VISBIOME PO (08:28)
--- NOTE | 2024-11-14 09:05 | W.PN.HOSP.TC ---
Today's Communication/Plan
-
Pacemaker placement
Holding Eliquis
Agreed to do blood work
Left VM to daughter
Assessment / Plan
Assessment / Plan
Physical Exam
General: Chronically ill looking, No Apparent Distress
HEENT: Normocephalic, Moist mucous membranes and Atraumatic
Respiratory: Clear
Cardiac: S1/S2, bradycardia
GI: Soft, Non-Tender, Non-Distended and Normal Bowel Sounds, obese.
Rectal: NO bleeding.
Musculoskeletal: No Clubbing, No Cyanosis
Neuro: AAO to self and surroundings, she followed commands, Nonfocal/grossly intact
Psych: Calm, not anxious
# Symptomatic bradycardia
HX Paroxysmal Atrial fibrillation/A-flutter Hx
HX Nav cardia
- on ASA and Eliquis for recent DVT
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 evaluation. She is offered to have
pacemaker but refuses daughters are aware.
#Chronic orthostatic hypotension on midodrine.
# chronic nausea
Seems to resolve, she denies nausea for two days now
No acute findings on US of abdomen. X ray no stool impaction
Possible gall bladder think wall on US but pt does not have abdominal pain or tenderness on exam.
c/w PPI upon discharge.
use PRN Zofran
c/w diet
Daughter wanted GI to see, GI recommend to c/w PPI, can follow in office. Dr Angeles saw the pt today, I updated her that pt refused blood work or GI procedures.
Negative C Diff testing, dc oral vancomycin
# Hyperkalemia, given Lokelma, resolved
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
Seems to improve
Stopped IVF
- avoid any nephrotoxic
# New diagnosis of bilateral Marie DVT
- on Eliquis renal adjusted dose
Holding Eliquis temporary for pacemaker placement.
Prior PMHX
Reported hypotension during left hip surgery 2020( no mention of cardiac arrest in records).
CKD
Hypothyroidism; on LT4
Candidal vaginitis
PMR on low-dose of prednisone at 2.5 mg daily
Pulmonary hypertension
Cognitive disorder, seems AAO X3
Anxiety:
Chronic ambulatory dysfunction: - Uses walker and/or rollator at baseline
History of falls/rhabdo myelosis 2020
Chronic constipation/diarrhea
DVT Px: Eliquis
Full code
I had d/w 2 daughters, Meron and Heike on different occasions. Both reported that patient made her decisions, Meron is POA
Total time spent to see the patient, examine the patient, review data and lab result, discuss treatment plan with patient, nursing staff around 57 minutes
Anticipated Discharge: 24 - 48 hours
Subjective/Interval History
-
Date of Service: November 14, 2024
No chest pain
No nausea or abdominal pain
Wants to have blood work and pacemaker
Objective Data
-
Labs:
Laboratory Results
11/14/24
07:05
WBC 4.5 L
Hgb 14.1
Hct 41.1
Plt Count 160 D
Sodium 137
Potassium 4.6
Chloride 111 H
Carbon Dioxide 20 L
BUN 49 H
Creatinine 1.3 H
Glucose 89
Calcium 8.0 L
Vital Signs:
Vital Signs
Temp Pulse Resp BP Pulse Ox
97.6 F 44 16 118/73 96
11/14/24 07:53 11/14/24 03:00 11/14/24 07:53 11/14/24 03:00 11/14/24 07:53
I&O
11/13/24 11/14/24 11/15/24
06:59 06:59 06:59
Intake Total 380 / 380 340 / 340
Balance 380 / 380 340 / 340
--- NOTE | 2024-11-14 10:05 | W.PN.UPDATE ---
Addendum entered and electronically signed by Freda Sal MD 11/14/24 12:53:
Addendum
Daughter Meron called and I updated her.
She is agreeable to the plan.
End
Original Note:
Update Note
Progress Note Update
Addendum
Called isaac Chance 11/13, left VM to call back, none yet
Called again 11/14, left VM, no response
Pt said she told the other daughter Adán about wanting pacer on 11/12
End
--- NOTE | 2024-11-14 16:19 | PTCARENOTE ---
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 prior to procedure, patient c/o feeling hungry and upset she couldn't eat. continues with peripheral cyanosis, weakness and occasional c/o dizziness. will continue to monitor.
--- NOTE | 2024-11-14 17:09 | ITS.CL.PACE ---
Marketing Support Manager - Pacemaker Implant
Pacemaker Implant
Procedure Report:
Date of Procedure: November 14, 2024.
Procedure: Pacemaker Implantation.
Indication: The pacemaker is for the treatment of nonreversible symptomatic bradycardia due to sinus node dysfunction.
Performing physician: Maxwell Rodriguez MD, [facility].
Implants:
Pulse Generator: Medtronic; Model# [id number]; Serial# [id number].
RA Lead: Medtronic; Model# 5076-45cm; Serial# [id number].
RV Lead: Medtronic; Model# 5076-52cm; Serial# [id number].
Technique: A time out was performed. The procedure site was identified. The patient was anesthetized/sedated by the anesthesia service. Preoperative cefazolin was administered. The patient was prepped and draped in the usual fashion. Local
anesthetic was applied to the left prepectoral subcutaneous tissue. A 3 inch incision was made along the left deltopectoral groove. Dissection was carried to the fascia. The left cephalic vein was easily isolated and proximal and distal control with
2-0 Vicryl suture. Using a micropuncture needle to access the cephalic vein under direct visualization a wire was advanced into the central circulation. A 7 Fr introducer could not be advanced beyond presumably the junction of the cephalic vein and
axillary vein. The left axillary vein was accessed with two separate percutaneous micro- punctures without difficulty. The leads were introduced with hemostatic peel away introducer sheaths. The ventricular lead was placed at the right ventricular
apical septum as confirmed by fluoroscopy in the [place] and [place] projections. The ventricular lead was secured to the pectoralis muscle and fascia with two 0-silk sutures. The atrial lead was placed in the right atrial appendage. 8 volt pacing from each
lead did not capture the diaphragm. The atrial leads was secured to the pectoralis muscle and fascia. A subcutaneous pocket was created with Bovie cautery. Hemostasis was excellent. The leads were appropriately attached to the device. The pocket was
irrigated with antibiotic solution. The device and leads were placed in the pocket. The incision was closed in three layers with absorbable suture. Steri-strips and a silver impregnated dressing were placed. Estimated blood loss was 10 ml. There
were no complications. Fluoroscopy time 4 minutes and DAP 0.898 GyCM2. The device was then interrogated after skin closure.
Lead Analysis:
RA lead: P: 2 mV; Threshold: 1.1 V @ 0.4 ms; Impedance: 437 ohms.
RV lead: R: 6.6 mV; Threshold: 0.75 V @ 0.4 ms; Impedance: 456 ohms.
Final Programming: MVP (AAIR to DDDR) 60-130 bpm.
Conclusion: Uncomplicated Medtronic pacemaker implant. The pacing system is MRI conditional.
Recommendation: Routine post pacemaker care.
cc: Obie Yanez MD.
--- NOTE | 2024-11-14 17:20 | PTCARENOTE ---
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 arrived aaox3, denies pain, reports she's afraid of 'getting sick' and requesting osiris lucio. lungs clear, no sob, no cough, 100% A-paced on monitor with heart rate of 60. left anterior
chest wall with dressing c/d/i. left arm in sling immobilizer. rest of assessment unchanged, vss, will continue to monitor.
[2024-11-14] MEDS: TYLENOL 650 MG PO (22:11)
[2024-11-14] MEDS: ANCEF 5 IV (22:12)
--- NOTE | 2024-11-14 23:53 | PTCARENOTE ---
patient was offered both oral and body hygiene multiple times, but they refused. Patient explained that they did not want to put anything in their mouth due to nausea/fear of vomiting.
[2024-11-15 03:00] VITALS: BP 96/55
[2024-11-15] MEDS: TYLENOL 650 MG PO ×3 (04:06→20:43)
[2024-11-15] MEDS: SYNTHROID 100 MCG PO (05:34)
--- NOTE | 2024-11-15 06:01 | PTCARENOTE ---
Pt refusing am labs even after explaining importance of them and what they are/ why physician ordered them for her. Pt continues c/o L shoulder pacer pain even after tylenol NII De Jesus notified and ordered one time dose tramadol 25 mg.
[2024-11-15] MEDS: ULTRAM 25 MG PO (06:07)
[2024-11-15] MEDS: ANCEF 5 IV (06:08)
[2024-11-15 07:25] VITALS: BP 99/50
[2024-11-15] MEDS: NSS (PRESERVATIVE FREE) 10 ML IV ×2 (07:38→20:29)
[2024-11-15] MEDS: PROTONIX IV 40 MG IV ×2 (07:38→20:29)
[2024-11-15] MEDS: FLUSH (NSS) 2 FLUSH IV (07:39)
[2024-11-15] MEDS: LASIX 20 MG PO (07:41)
[2024-11-15] MEDS: LOW STRENGTH ASPIRIN 81 MG PO (07:41)
[2024-11-15] MEDS: SENOKOT-S 1 TABLET PO (07:50)
[2024-11-15] MEDS: VISBIOME 2 CAP PO (07:51)
[2024-11-15] MEDS: DELTASONE 2.5 MG PO (07:56)
[2024-11-15 08:09] LABS: Hematocrit 40.5 % (37.0-47.0); Hemoglobin 13.6 g/dL (12.0-16.0); Mean Corp Hgb Conc. 33.6 g/dL (33.0-37.0); Mean Corpuscular Volume 86.9 fL (81.0-99.0); Platelet Count 169 10^3/uL (130-400); Red Cell Dist. Width 15.0 % (11.5-14.5)
--- NOTE | 2024-11-15 08:15 | W.PN.HOSP.TC ---
Today's Communication/Plan
-
laxatives
c/w PRN Zofran
Assessment / Plan
Assessment / Plan
Physical Exam
General: Chronically ill looking, No Apparent Distress
HEENT: Normocephalic, Moist mucous membranes and Atraumatic
Respiratory: Clear
Cardiac: S1/S2, clean dressing with sling left arm
GI: Soft, Non-Tender, Non-Distended and Normal Bowel Sounds, obese.
Rectal: NO bleeding.
Musculoskeletal: No Clubbing, No Cyanosis
Neuro: AAO to self and surroundings, she followed commands, Nonfocal/grossly intact
Psych: Calm, not anxious
# Nonreversible symptomatic bradycardia due to sinus node dysfunction
s/p Medtronic pacemaker placement by Dr Rodriguez on 11/14, no complications reported.
- on ASA
Resume Eliquis 11/17 am time
Appreciate cardiology help
#Chronic orthostatic hypotension on midodrine.
# chronic nausea
Seems to resolve, she denies nausea for few days now
No acute findings on US of abdomen. X ray no stool impaction
Possible gall bladder think wall on US but pt does not have abdominal pain or tenderness on exam.
c/w PPI upon discharge.
use PRN Zofran
c/w diet
Daughter wanted GI to see, GI recommend to c/w PPI, can follow in office. Dr Angeles saw the pt y, pt refused GI procedures.
Negative C Diff testing, dc oral vancomycin
Add scheduled laxative for constipation
# Hyperkalemia, given Lokelma, resolved
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
Seems to improve
Stopped IVF
- avoid any nephrotoxic
# New diagnosis of bilateral Marie DVT
- on Eliquis renal adjusted dose
Holding Eliquis temporary for pacemaker placement, d/w cardiology, resume 11/17
Prior PMHX
Reported hypotension during left hip surgery 2020( no mention of cardiac arrest in records).
CKD
Hypothyroidism; on LT4
Candidal vaginitis
PMR on low-dose of prednisone at 2.5 mg daily
Pulmonary hypertension
Cognitive disorder, seems AAO X3
Anxiety:
Chronic ambulatory dysfunction: - Uses walker and/or rollator at baseline
History of falls/rhabdo myelosis 2020
Chronic constipation/diarrhea
DVT Px: Eliquis
Full code
I updated Les Chance about plan
Total time spent to see the patient, examine the patient, review data and lab result, discuss treatment plan with patient, nursing staff around 57 minutes
Anticipated Discharge: > 48 hours
Subjective/Interval History
-
Date of Service: November 15, 2024
She complains of constipation
chest pain at titusviller site
Objective Data
-
Labs:
Laboratory Results
11/15/24
07:54
WBC 7.1
Hgb 13.6
Hct 40.5
Plt Count 169
Sodium Pending
Potassium Pending
Chloride Pending
Carbon Dioxide Pending
BUN Pending
Creatinine Pending
Glucose Pending
Calcium Pending
Vital Signs:
Vital Signs
Temp Pulse Resp BP Pulse Ox
97.5 F 61 16 99/50 98
11/15/24 07:25 11/15/24 07:25 11/15/24 07:25 11/15/24 07:25 11/15/24 07:25
I&O
11/14/24 11/15/24 11/16/24
06:59 06:59 06:59
Intake Total 340 / 340 300 / 300
Balance 340 / 340 300 / 300
[2024-11-15 08:45] LABS: Blood Urea Nitrogen 49 mg/dl (7-17); Calcium 8.3 mg/dl (8.4-10.2); Carbon Dioxide 18 mmol/L (22-30); Chloride 108 mmol/L (98-107); Estimated Creatinine Clearance 20 ml/min; Glucose 105 mg/dl (70-99); Potassium 4.8 mmol/L (3.5-5.1); Sodium 135 mmol/L (135-145); eGFR 31.02
[2024-11-15 11:04] VITALS: BP 111/56
--- NOTE | 2024-11-15 12:35 | W.PN.UPDATE ---
Update Note
Progress Note Update
Patient seen and examined. Arm immobilizer and pressure dressing removed. Pacer site normal. Chest x-ray image and report reviewed. No pneumothorax. Leads in good position. Telemetry reviewed. Predominantly atrially paced. No bradycardia. No
pacemaker malfunction. I reviewed post procedure arm limitations and encouraged normal movement of left arm to minimize the risk of the development of a frozen shoulder.
Doing well. No objections to hospital discharge.
Eliquis should be resumed November 17 and the morning.
Pacemaker follow-up arranged.
Cardiology will sign off. Please call with questions.
--- NOTE | 2024-11-15 14:07 | W.PN.ANS.POP ---
Anesthesia Post Operative
- Anesthesia Post Op Note
Vital Signs Stable-See Nursing Note: Yes
Airway Patent: Yes
Adequate Pain Control: Yes
Change in Mental Status: No
Current Postoperative Nausea & Vomiting: No
Anesthesia Complications: No
General Anesthetic Recall: No
Unplanned Admission: No
Post Op Hydration Adequate: Yes
[2024-11-15 15:07] VITALS: BP 116/51
[2024-11-15] MEDS: MILK OF MAGNESIA 30 ML PO (16:49)
[2024-11-15] MEDS: SENOKOT-S 2 TABLET PO (20:30)
[2024-11-15 22:40] VITALS: BP 110/52
[2024-11-15 23:00] VITALS: BP 113/52
[2024-11-16] VITALS (8 sets, daily range): BP systolic 105–131; BP diastolic 48–63; PULSE 61; O2SAT 100
[2024-11-16] MEDS: TYLENOL 650 MG PO ×2 (02:41→20:35)
[2024-11-16] MEDS: SYNTHROID 100 MCG PO (06:18)
[2024-11-16] MEDS: VISBIOME 2 CAP PO (08:12)
[2024-11-16] MEDS: DELTASONE 2.5 MG PO (08:13)
[2024-11-16] MEDS: MIRALAX PO (08:13)
[2024-11-16] MEDS: NSS (PRESERVATIVE FREE) 10 ML IV ×2 (08:14→19:48)
[2024-11-16] MEDS: ZOFRAN 4 MG IV (08:14)
[2024-11-16] MEDS: PROTONIX IV 40 MG IV ×2 (08:14→19:48)
[2024-11-16] MEDS: LOW STRENGTH ASPIRIN 81 MG PO (08:14)
[2024-11-16] MEDS: LASIX 20 MG PO (08:14)
--- NOTE | 2024-11-16 08:26 | W.PN.HOSP.TC ---
Today's Communication/Plan
-
Give Zofran for nausea
likely dc in 24-48 hours
Assessment / Plan
Assessment / Plan
Physical Exam
General: Chronically ill looking, No Apparent Distress
HEENT: Normocephalic, Moist mucous membranes and Atraumatic
Respiratory: Clear
Cardiac: S1/S2, clean dressing around pacemaker site.
GI: Soft, Non-Tender, Non-Distended and Normal Bowel Sounds, obese.
Rectal: NO bleeding.
Musculoskeletal: No Clubbing, No Cyanosis
Neuro: AAO to self and surroundings, she followed commands, Nonfocal/grossly intact
Psych: Calm, not anxious
# Nonreversible symptomatic bradycardia due to sinus node dysfunction
s/p [employer] pacemaker placement by Dr Rodriguez on 11/14, no complications reported.
- on ASA
Resume Eliquis 11/17 am time
Appreciate cardiology help
#Chronic orthostatic hypotension on midodrine. Now BP improved, will lower midodrine dose
# chronic nausea
Seems to on/ off issue.
No acute findings on US of abdomen. X ray no stool impaction
Possible gall bladder think wall on US but pt does not have abdominal pain or tenderness on exam.
c/w PPI upon discharge.
use PRN Zofran
c/w diet
Daughter wanted GI to see, GI recommend to c/w PPI, can follow in office. Dr Angeles saw the pt y, pt refused GI procedures.
Negative C Diff testing, dc oral vancomycin
Added scheduled laxative for constipation
# Hyperkalemia, given Lokelma, resolved
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
Seems to improve
Stopped IVF
- avoid any nephrotoxic
# New diagnosis of bilateral Marie DVT
- on Eliquis to be resumed 11/17
Prior PMHX
Reported hypotension during left hip surgery 2020( no mention of cardiac arrest in records).
CKD
Hypothyroidism; on LT4
Candidal vaginitis
PMR on low-dose of prednisone at 2.5 mg daily
Pulmonary hypertension
Cognitive disorder, seems AAO X3
Anxiety:
Chronic ambulatory dysfunction: - Uses walker and/or rollator at baseline
History of falls/rhabdo myelosis 2020
Chronic constipation/diarrhea
DVT Px: Eliquis
Full code
I updated Les Chance about plan
Total time spent to see the patient, examine the patient, review data and lab result, discuss treatment plan with patient, nursing staff around 57 minutes
Anticipated Discharge: Within 24 hours
Subjective/Interval History
-
Date of Service: November 16, 2024
reports chest discomfort around the pacemaker site
reports nausea, no abdominal pain
Objective Data
-
Vital Signs:
Vital Signs
Temp Pulse Resp BP Pulse Ox
97.3 F 61 16 105/58 100
11/16/24 07:00 11/16/24 08:14 11/16/24 07:00 11/16/24 08:14 11/16/24 07:00
I&O
11/15/24 11/16/24 11/17/24
06:59 06:59 06:59
Intake Total 300 / 300 240 / 240
Balance 300 / 300 240 / 240
[2024-11-17 01:13] VITALS: BMI 22.4
[2024-11-17 01:14] VITALS: BMI 22.4
[2024-11-17 03:00] VITALS: BP 128/61
[2024-11-17] MEDS: TYLENOL 650 MG PO ×2 (03:33→20:15)
[2024-11-17] MEDS: SYNTHROID 100 MCG PO (03:33)
[2024-11-17 07:34] VITALS: BP 104/50
[2024-11-17] MEDS: DELTASONE 2.5 MG PO (08:12)
[2024-11-17] MEDS: LOW STRENGTH ASPIRIN 81 MG PO (08:13)
[2024-11-17] MEDS: LASIX 20 MG PO (08:13)
[2024-11-17] MEDS: VISBIOME 2 CAP PO (08:14)
[2024-11-17] MEDS: PROTONIX IV 40 MG IV (08:15)
[2024-11-17] MEDS: NSS (PRESERVATIVE FREE) 10 ML IV (08:15)
[2024-11-17] MEDS: MIRALAX PO (08:15)
[2024-11-17 09:39] LABS: Hematocrit 39.9 % (37.0-47.0); Hemoglobin 13.2 g/dL (12.0-16.0); Mean Corp Hgb Conc. 33.1 g/dL (33.0-37.0); Mean Corpuscular Volume 87.3 fL (81.0-99.0); Platelet Count 145 10^3/uL (130-400); Red Cell Dist. Width 14.9 % (11.5-14.5)
[2024-11-17 10:20] LABS: ALT (SGPT) < 10 U/L (0-35); AST (SGOT) 11 U/L (14-36); Albumin 3.5 g/dl (3.5-5.0); Alkaline Phosphatase 56 U/L (38-126); Blood Urea Nitrogen 50 mg/dl (7-17); Calcium 8.2 mg/dl (8.4-10.2); Carbon Dioxide 17 mmol/L (22-30); Chloride 108 mmol/L (98-107); Estimated Creatinine Clearance 21 ml/min; Glucose 97 mg/dl (70-99); Potassium 4.7 mmol/L (3.5-5.1); Sodium 134 mmol/L (135-145); Total Protein 6.4 g/dl (6.3-8.2); eGFR 33.52
[2024-11-17 11:27] VITALS: BP 114/79
--- NOTE | 2024-11-17 14:25 | W.PN.HOSP.TC ---
Today's Communication/Plan
-
PT evaluation per
Discharge planning
Assessment / Plan
Assessment / Plan
Impression
Symptomatic bradycardia
Other conditions:
Recent diagnosis of bilateral lower extremity DVT.
Chronic or static hypotension with
Chronic kidney disease stage IIIa.
Hypothyroidism on replacement.
History of atrial fibrillation
Polymyalgia rheumatica on steroid maintenance
Plan
Symptomatic bradycardia
Status post permanent pacemaker placement
Continue midodrine
Eliquis resumed on 11/17.
Volume status otherwise compensated. Continue Lasix 20 mg daily
Chronic nausea and upper abdominal discomfort.
Unrevealing workup.
GI input appreciated.
Continue PPI.
History of C. difficile infection/C. difficile antigen positive. Vancomycin has been discontinued.
CHEY on CKD stage IIIb.
Improved with IV hydration.
Bilateral lower extremity DVT\\
Continue Eliquis
Hypothyroidism placement
Polymyalgia rheumatica
Continue prednisone at the maintenance dose.
Chronic Evaristo's
Anticipated Discharge: 24 - 48 hours
Subjective/Interval History
-
Date of Service: November 17, 2024
Objective Data
-
Labs:
Laboratory Results
11/17/24
09:24
WBC 5.1
Hgb 13.2
Hct 39.9
Plt Count 145
Sodium 134 L
Potassium 4.7
Chloride 108 H
Carbon Dioxide 17 L
BUN 50 H
Creatinine 1.5 H
Glucose 97
Calcium 8.2 L
Total Bilirubin 0.5
AST 11 L
ALT < 10
Alkaline Phosphatase 56
Vital Signs:
Vital Signs
Temp Pulse Resp BP Pulse Ox
97.4 F 60 14 114/79 99
11/17/24 11:27 11/17/24 11:27 11/17/24 11:27 11/17/24 11:27 11/17/24 11:27
I&O
11/16/24 11/17/24 11/18/24
06:59 06:59 06:59
Intake Total 240 / 240 700 / 700
Balance 240 / 240 700 / 700
Physical Exam
-
General: Well Developed, Well Nourished, No Apparent Distress and Appears Chronically Ill
HEENT: Normocephalic, Atraumatic and Moist Mucous Membranes
Respiratory: Clear to Auscultation; Negative Wheezes, Rales or Rhonchi
Cardiac: Regular Rhythm and S1/S2
GI: Soft, Nontender and Nondistended
Musculoskeletal: Other (chronic stasis dermatitis)
[2024-11-17 15:30] VITALS: BP 127/66
--- NOTE | 2024-11-17 17:48 | CM ---
CM following for discharge plans. Pt lives at [facility], however SNF is recommended by PT/OT based on evaluation 11/16/2024.
Plan: CM to discuss SNF with pt's daughter and refer to facilities.
[2024-11-17 19:45] VITALS: BP 114/53
[2024-11-17] MEDS: NSS (PRESERVATIVE FREE) IV (20:12)
[2024-11-17 23:08] VITALS: BP 115/52
[2024-11-18 03:18] VITALS: BP 142/64
[2024-11-18] MEDS: SYNTHROID 100 MCG PO (05:36)
[2024-11-18] MEDS: DELTASONE 2.5 MG PO (07:30)
[2024-11-18] MEDS: PROTONIX 20 MG PO (07:30)
[2024-11-18 07:34] VITALS: BP 100/55
[2024-11-18] MEDS: LOW STRENGTH ASPIRIN 81 MG PO (07:37)
[2024-11-18] MEDS: MIRALAX 17 GRAMS PO (07:37)
[2024-11-18] MEDS: VISBIOME 2 CAP PO (07:37)
[2024-11-18] MEDS: LASIX 20 MG PO (07:37)
[2024-11-18] MEDS: NSS (PRESERVATIVE FREE) IV ×2 (07:38→22:19)
[2024-11-18] MEDS: ELIQUIS 2.5 MG PO ×2 (08:31→22:05)
[2024-11-18 11:26] VITALS: BP 152/63
--- NOTE | 2024-11-18 14:10 | W.PN.HOSP.TC ---
Today's Communication/Plan
-
Medically optimized for discharge to nursing home facility pending bed availability
Assessment / Plan
Assessment / Plan
Impression
Symptomatic bradycardia
Other conditions:
Recent diagnosis of bilateral lower extremity DVT.
Chronic or static hypotension with
Chronic kidney disease stage IIIa.
Hypothyroidism on replacement.
History of atrial fibrillation
Polymyalgia rheumatica on steroid maintenance
Plan
Symptomatic bradycardia
Status post permanent pacemaker placement
Continue midodrine
Eliquis resumed on 11/17.
Volume status otherwise compensated. Continue Lasix 20 mg daily
Chronic nausea and upper abdominal discomfort.
Unrevealing workup.
GI input appreciated.
Continue PPI.
History of C. difficile infection/C. difficile antigen positive. Vancomycin has been discontinued.
CHEY on CKD stage IIIb.
Improved with IV hydration.
Bilateral lower extremity DVT\\
Continue Eliquis
Hypothyroidism placement
Polymyalgia rheumatica
Continue prednisone at the maintenance dose.
Chronic Evaristo's
Anticipated Discharge: Within 24 hours
Subjective/Interval History
-
Date of Service: November 18, 2024
Objective Data
-
Vital Signs:
Vital Signs
Temp Pulse Resp BP Pulse Ox
96.2 F L 60 20 152/63 100
11/18/24 11:26 11/18/24 11:26 11/18/24 11:26 11/18/24 11:26 11/18/24 11:26
I&O
11/17/24 11/18/24 11/19/24
06:59 06:59 06:59
Intake Total 700 / 700 360 / 360
Balance 700 / 700 360 / 360
Physical Exam
-
General: Well Developed, Well Nourished, No Apparent Distress and Appears Chronically Ill
HEENT: Normocephalic, Atraumatic and Moist Mucous Membranes
Respiratory: Clear to Auscultation; Negative Wheezes, Rales or Rhonchi
Cardiac: Regular Rhythm and S1/S2
GI: Soft, Nontender and Nondistended
Musculoskeletal: Other (chronic stasis dermatitis)
[2024-11-18 15:00] VITALS: BP 126/64
--- NOTE | 2024-11-18 15:50 | CM ---
Placed a call to patient's daughter Merno to obtain choices for SNF. Patient's daughter stated that she does not want patient to go to SNF as she just transitioned to [facility]. Patient's daughter was advised that [facility] will have to agree that
they can support her with her current level of functioning. Patient's daughter expressed understanding.
Spoke with Rhea from [facility] who stated that patient was current.
Placed a call to [facility] [phone] but had to leave a voice mail message. Requested return call to discuss patient returning to facility when medically stable.
Plan: Case management will continue to follow and assist with discharge planning. Patient's daughter prefers that patient goes back to [facility]. Will need to confirm that facility can take back without rehab first.
[2024-11-18] MEDS: TYLENOL 650 MG PO (22:09)
[2024-11-18 23:30] VITALS: BP 111/54
[2024-11-19] MEDS: SYNTHROID 100 MCG PO (05:56)
[2024-11-19 07:00] VITALS: BP 119/59
[2024-11-19] MEDS: PROTONIX 20 MG PO (08:36)
[2024-11-19] MEDS: MIRALAX PO (08:37)
[2024-11-19] MEDS: NSS (PRESERVATIVE FREE) IV (08:38)
[2024-11-19] MEDS: ELIQUIS 2.5 MG PO (09:27)
[2024-11-19] MEDS: VISBIOME 2 CAP PO (09:27)
[2024-11-19] MEDS: LOW STRENGTH ASPIRIN 81 MG PO (09:27)
[2024-11-19] MEDS: LASIX 20 MG PO (09:27)
[2024-11-19] MEDS: DELTASONE 2.5 MG PO (09:28)
--- NOTE | 2024-11-19 13:34 | CM ---
Addendum entered by Magdalena Cole 11/19/24 15:44:
Pt is alert and oriented. She advised that her daughter is on a [address] to [place], which is probably why she is not answering her phone.
Pt is agreeable to discharge back to [facility].
Original Note:
CM continues to follow for discharge; pt is cleared for discharge today with recommendation for SNF. Pt's daughter is not agreeable to SNF and wants her mother to return to [facility].
Call placed to pt's daughter to make her aware of medical clearance for discharge today, however I had to leave a voicemail for her; awaiting return call.
CM spoke with Petra at [facility] to discuss patient's return. Therapy notes reviewed verbally with Petra who is agreeable to pt returning to [facility] with resumption of [facility].
Ambulance transport will be requested for transport back to [facility] pending return call from pt's daughter.
[facility] Report: [phone]
[facility]
--- NOTE | 2024-11-19 13:41 | W.DCSUMMARY ---
Discharge Summary
Discharge Data
Date of Admission: 11/09/24
Date of Discharge: 11/19/24
-
Pending Results: No
Hospital Course
Impression
Symptomatic bradycardia
Other conditions:
Recent diagnosis of bilateral lower extremity DVT.
Chronic or static hypotension with
Chronic kidney disease stage IIIa.
Hypothyroidism on replacement.
History of atrial fibrillation
Polymyalgia rheumatica on steroid maintenance
Plan
Symptomatic bradycardia
Status post permanent pacemaker placement
Continue midodrine
Eliquis resumed on 11/17.
Volume status otherwise compensated. Continue Lasix 20 mg daily
Chronic nausea and upper abdominal discomfort.
Unrevealing workup.
GI input appreciated.
Continue PPI.
History of C. difficile infection/C. difficile antigen positive. Vancomycin has been discontinued.
CHEY on CKD stage IIIb.
Improved with IV hydration.
Bilateral lower extremity DVT\\
Continue Eliquis
Hypothyroidism placement
Polymyalgia rheumatica
Continue prednisone at the maintenance dose.
Chronic Evaristo's
Significant deconditioning and chronic ambulatory dysfunction
Patient's daughter declined correction facility with plan to discharge to assisted living with outpatient PT OT.
Discharge Plan
-
Patient Disposition: Correction/SNF
Discharge Diagnosis/Procedures: pacemaker implant
Condition: Good
Diet: Regular
Driving Restrictions: No driving for 1 week
Stand Alone Forms: [facility] Inst - Implanted Device
Referrals:
Cristiana Coates CRNP [[facility] Professional Person[facility], Cardiology] - 11/21/24 3:40 pm
Referral Note: Post device incision check appointment
Todd Sood DO [Family Provider]
Prescriptions:
New
pantoprazole 20 mg Tablet,Delayed Release (Dr/Ec)
20 mg PO DAILY Qty: 30 0RF
Continued
acetaminophen [Tylenol] 325 mg Tablet
650 mg PO Q6HPRN PRN (Reason: mild pain)
polyethylene glycol 3350 [Miralax] 17 gram Powder In Packet
17 g PO DAILY
ondansetron HCl 4 mg Tablet
4 mg PO Q6H PRN (Reason: nausea/vomiting)
midodrine 5 mg Tablet
5 mg PO BID
Patient Comments:
11/09/2024, hold if SBP>110.
pantoprazole [Protonix] 20 mg Tablet,Delayed Release (Dr/Ec)
20 mg PO DAILY
levothyroxine 100 mcg Tablet
100 mcg PO DAILY
prednisone 2.5 mg Tablet
2.5 mg PO DAILY
docusate sodium [Colace] 100 mg Capsule
100 mg PO HS
furosemide [Lasix] 20 mg Tablet
20 mg PO DAILY
Changed
Eliquis 5 mg Tablet
2.5 mg PO BID Qty: 0 0RF
Discontinued
aspirin 81 mg Tablet,Chewable
81 mg PO DAILY
Discharge Orders:
Discharge Patient (As Directed); Ordered 11/19/24
Ordered By: Jared Shell
Discharge Date and Time
Print Language: KUWAITI
[2024-11-19 15:00] VITALS: BP 118/60
--- NOTE | 2024-11-20 16:13 | CM ---
DEBBI Wilkerson at [facility] requesting VN referral with clinicals and copy of order, patient d/c yesterday.
TT to MD, order obtained, referral sent via [facility].
== END 2024-11-19 17:10 | disposition home health service (06) | DRG 243 ==
LOC: 3 WEST ACU 21:15
PROVIDERS: Emergency Medicine; Internal Medicine; Internal Medicine Cardiovascular Disease; Nurse Practitioner; ADMITTING PHYSICIAN Internal Medicine; ATTENDING PHYSICIAN Internal Medicine; CONSULT PHYSICIAN Student in an Organized Health Care Education/Training Program; EMERGENCY PHYSICIAN Emergency Medicine; FAMILY PHYSICIAN Internal Medicine; OTHER PHYSICIAN Internal Medicine
PROC: 02HK3JZ Insertion of Pacemaker Lead into Right Ventricle, Percutaneous Approach (ICD-10-PCS; 2024-11-14)
PROC: 0JH606Z Insertion of Pacemaker, Dual Chamber into Chest Subcutaneous Tissue and Fascia, Open Approach (ICD-10-PCS; 2024-11-14)
PROC: 02H63JZ Insertion of Pacemaker Lead into Right Atrium, Percutaneous Approach (ICD-10-PCS; 2024-11-14)
DX: I49.5 Sick sinus syndrome (principal); I48.92 Unspecified atrial flutter; N17.9 Acute kidney failure, unspecified; I49.2 Junctional premature depolarization; I50.32 Chronic diastolic (congestive) heart failure; I95.1 Orthostatic hypotension; N18.32 Chronic kidney disease, stage 3b; E03.9 Hypothyroidism, unspecified; I48.0 Paroxysmal atrial fibrillation; M35.3 Polymyalgia rheumatica; E86.0 Dehydration; E87.5 Hyperkalemia; R11.2 Nausea with vomiting, unspecified; R10.10 Upper abdominal pain, unspecified; I25.10 Atherosclerotic heart disease of native coronary artery without angina pectoris; I27.20 Pulmonary hypertension, unspecified; R41.89 Other symptoms and signs involving cognitive functions and awareness; F41.9 Anxiety disorder, unspecified; R13.10 Dysphagia, unspecified; I45.10 Unspecified right bundle-branch block; K59.09 Other constipation; Z86.718 Personal history of other venous thrombosis and embolism; Z86.74 Personal history of sudden cardiac arrest; I25.2 Old myocardial infarction; Z86.19 Personal history of other infectious and parasitic diseases; Z79.01 Long term (current) use of anticoagulants; Z79.82 Long term (current) use of aspirin; Z79.52 Long term (current) use of systemic steroids
CPT/HCPCS: 33208; 71045; 74018; 76700; 80048; 80053; 83605; 83690; 84443; 84484; 85025; 85027; 87045; 87046; 87070; 87324; 87427; 87449; 93005; 93308; 93321; 93325; 96374; 97163; 97167; 97530; 97535; 99285; C1769; C1785; C1887; C1894; C1898; Q9967

== ENCOUNTER 2024-11-26 16:01 | Observation (INO) | payer OTHER, SELFPAY ==
[2024-11-26] VITALS (10 sets, daily range): BP systolic 42–118; BP diastolic 23–91; BMI 24.2
--- NOTE | 2024-11-26 10:06 | ED.GENMED ---
History of Present Illness
General
Chief Complaint: Abdominal Symptoms
Source: patient
Exam Limitations: none
Time Seen by Provider: 11/26/24 09:59
History of Present Illness
History of Present Illness:
89yoF with a history of bradycardia s/p pacemaker, DVT on Eliquis, coronary artery disease, CHF, atrial fibrillation, polymyalgia rheumatica on chronic steroids, CKD, orthostatic hypotension on midodrine, hypothyroidism presenting via EMS for
evaluation of diarrhea. She woke up this morning feeling nauseous and had one episode of vomiting. She then started to have diarrhea and had so much stool that the long-term staff had to clean her off in the shower. She reports feeling fatigued
and weak. She denies any hematemesis, hematochezia, fevers, abdominal pain, chest pain, shortness of breath. She ate seafood salad for dinner last night. No recent travel. She was recently hospitalized from 11/09/24-11/19/24 and had a pacemaker placed
for symptomatic bradycardia. She was also evaluted by gastroenterology during her hospitalization who felt her diarrhea was overflow diarrhea from constipation and recommended a bowel regimen.
Past History
Past History
ED Past Medical History: Arrthythmia (afib), CAD, Hypercholesterolemia, NE, Renal failure, Hypothyroidism, Psychiatric (anxiety ), Other (bilateral LE DVTs on Eliquis) and Other (orthostatic hypotension, bradycardia)
ED Past Surgical History: None
Social History
Tobacco: Non-smoker
Alcohol: None
Living: assisted living
Employment: Retired
Phy Exam
Physical Exam
Physical Exam:
Chronically ill-appearing, no acute distress
General Physical Exam
General Presentation: no apparent distress
General Skin: warm and dry
General Habitus: elderly and frail
General Mental: alert
ENT Exam
ENT Exam: normocephalic
Cardiovascular Exam
Cardiovascular Exam: regular rate/rhythm
Pulmonary Exam
Pulmonary Exam: lungs clear, no respiratory distress, no rales, no crackles, no rhonchi and no wheezing
Gastrointestinal Exam
Gastrointestinal Exam: non tender, soft and non distended
Neurological Exam
Neurological Exam: alert
Skin Exam
Skin Exam: normal color and warm/dry
Psychiatric Exam
Psychiatric Exam: normal mood/affect
Course
Orders/Labs/Results
Orders:
Orders
11/26/24 09:31
Electrocardiogram (*1) Urgent
Reason for Study: Vertigo / Dizzy
11/26/24 09:32
EKG- Treatment ONCE
Interrogate Pacemaker- Treatment ONCE
11/26/24 10:09
Iohexol [Omnipaque] See Protocol PO NOW STA
11/26/24 10:10
CT Abd/pel (oral only)-DH Only Urgent
Comment:
Reason For Exam: vomiting, diarrhea
11/26/24 10:16
Complete Blood Count/With Diff Urgent
Lactate Level [Lactic Acid] Urgent
11/26/24 10:46
Ondansetron Injectable [Zofran] 4 mg IV NOW STA
11/26/24 12:00
Comprehensive Metabolic Panel Urgent
Lipase Urgent
Magnesium Urgent
Troponin I Urgent
11/26/24 14:49
CDIFF [C difficile Antigen & Toxins] Urgent
LESLEE Source: Feces/Stool
Specimen Description:
Date Specimen was Collected: 11/26/24
Time Specimen was Collected: 10:09
Stool Culture Urgent
LESLEE Source: Feces/Stool
Specimen Description:
Date Specimen was Collected: 11/26/24
Time Specimen was Collected: 10:09
11/26/24 15:22
Dextrose 50%-Water [Dextrose 50% Syringe] 25 grams IV NOW STA
11/26/24 15:23
Dextrose 50%-Water [Dextrose 50% Syringe] 12.5 grams IV [id number] PRN
Dextrose 50%-Water [Dextrose 50% Syringe] 25 grams IV NOW STA
Insulin Human Regular [Novolin R] 10 units IV NOW STA
Bedside Glucose PRE IV Insulin- HyperK+ NOW
11/26/24 15:36
Admit/Transfer Patient As Directed
Co-Sign Provider:
Level of Care: Observation services
Assign to:: Telemetry
Physician / Group: Eligio Sheldon
Diagnosis: acute diarrhea, Enterocolitis
Reason for Telemetry: Arrhythmia
Date to Stop Telemetry: 11/29/24
Time to Stop Telemetry: 11:00
PRN Pain Medication Management As Directed
May give lesser potent ordered pain med per pt: Yes
preference::
Protocol:: Medication orders for pain may be administered in a
manner that supports deferring to patient preference
when the pt is:
- Requesting an ordered lesser potent pain medication.
Least to most potent pain medications are defined
as: acetaminophen < NSAID < tramadol < opioids
(morphine, oxycodone, hydromorphone).
- Requesting a lesser dose of the same medication IF
ORDERED.
- Requesting a less intrusive route of administration
if both routes are prescribed by the provider (PO <
IV).
11/26/24 15:38
Code Status As Directed
Resuscitation Status: Full Code
11/26/24 16:15
Urinalysis Reflex To Culture Urgent
Date Specimen was Collected: 11/26/24
Time Specimen was Collected: 09:32
11/26/24 16:53
Bedside Glucose POST IV Insulin- HyperK+ Q1HX2,Q2HX2
11/26/24 17:53
Potassium Urgent
Comment: draw 2 hours after regular insulin IV administration
11/29/24 11:00
DC Protocol for Telemetry ONCE
Abnormal Lab Results
11/26/24 11/26/24
10:16 12:00
WBC 4.3 L 10^3/uL
(4.8-10.8)
RDW 14.9 H %
(11.5-14.5)
Potassium 5.3 H mmol/L
(3.5-5.1)
Chloride 108 H mmol/L
(98-107)
BUN 59 H mg/dl
(7-17)
Creatinine 1.4 H mg/dL
(0.6-1.0)
AST 13 L U/L
(14-36)
11/26/24 10:16
11/26/24 13:01
Vital Signs
Initial and Last Documented VS:
Initial Vital Signs
Pulse Resp Pulse Ox
72 20 100
11/26/24 09:34 11/26/24 09:34 11/26/24 09:34
Last Documented Vital Signs
Temp Pulse Resp BP Pulse Ox
98.6 F 60 16 108/49 99
11/26/24 14:52 11/26/24 15:00 11/26/24 15:00 11/26/24 15:00 11/26/24 14:52
MDM/Problems Addressed
Differential Diagnosis Includes:
89yoF here with nausea, vomiting, diarrhea that started this morning. VSS. She is chronically ill appearing in no acute distress. No signs of peritonitis on abdominal exam. Differential diagnosis includes but is not limited to: viral illness,
gastroenteritis, C.diff, colitis, dehydration
Initial ED plan: Check abdominal labs, lactate, troponin/EKG, stool studies, and CT abdomen.
*Pulse Oximetry
SaO2: 100
Patient hypoxic: no (100%)
*Critical Care Note
Total Time (30-74mins, 75-104mins- exclusive of procedures): Not Applicable
Update Note
Update Note:
CT shows evidence of enterocolitis. White count and lactate within normal limits. Potassium minimally elevated at 5.3. Renal function at baseline. Patient initially put up for discharge although she states she feels too weak to go home and thus was
admitted for further management.
ED Attending Note
-
Portions of this chart may have been created with voice recognition software.� Occasional wrong word or��sound alike� substitutions may have occurred due to the inherent limitations of voice recognition software.
Discharge Plan
Departure
Patient Disposition: Admit
Date of Disposition: 11/26/24
Time of Disposition: 14:57
Presentation/result/management discussed w/ accepting MD/DO: Hospitalist
Patient with high blood pressure during this ER visit?: No
Discharge Problem:
Enterocolitis
Interventions
Interventions:
*Risk Screen - Suicide Last Done: 11/26/24 09:41
*General Assessment Last Done: 11/26/24 09:41
*Neglect/Abuse Screening Last Done: 11/26/24 09:41
*ED- Fall Risk Assessment Last Done: 11/26/24 09:41
*ED COVID-19 Vaccine History Last Done: 11/26/24 09:41
QP-Xijkon-Pjaxbhiveq Assessment Last Done: 11/26/24 09:41
--- NOTE | 2024-11-26 10:29 | EDRN ---
the pt has two PIV's however unable to get amount of blood needed to send to the lab, the pt is stating that she is refusing to be 'stuck again and I don't want any blood sent, and i don't want my urine taken', this RN notified Cassandra Sinclair
[2024-11-26] MEDS: ZOFRAN 4 MG IV (10:56)
[2024-11-26] MEDS: OMNIPAQUE 50 ML PO (10:56)
[2024-11-26 11:25] LABS: Hematocrit 46.4 % (37.0-47.0); Hemoglobin 15.5 g/dL (12.0-16.0); Mean Corp Hgb Conc. 33.4 g/dL (33.0-37.0); Mean Corpuscular Volume 86.7 fL (81.0-99.0); Nucleated Red Blood Cells % 0 %; Platelet Count 242 10^3/uL (130-400); Red Cell Dist. Width 14.9 % (11.5-14.5)
[2024-11-26 14:20] LABS: ALT (SGPT) < 10 U/L (0-35); AST (SGOT) 13 U/L (14-36); Albumin 3.6 g/dl (3.5-5.0); Alkaline Phosphatase 59 U/L (38-126); Blood Urea Nitrogen 59 mg/dl (7-17); Calcium 8.4 mg/dl (8.4-10.2); Carbon Dioxide 24 mmol/L (22-30); Chloride 108 mmol/L (98-107); Estimated Creatinine Clearance 21 ml/min; Glucose 92 mg/dl (70-99); Lipase 61 U/L (23-300); Magnesium 1.8 mg/dl (1.6-2.3); Potassium 5.3 mmol/L (3.5-5.1); Sodium 138 mmol/L (135-145); Total Protein 6.7 g/dl (6.3-8.2); eGFR 36.19
[2024-11-26 14:32] LABS: Troponin I < 0.012 ng/ml
--- NOTE | 2024-11-26 15:05 | HPS.HSE ---
Family Physician
-
Family Physician: Todd Sood
Chief Complaint
-
nausea, vomiting and diarrhea
History of Present Illness
Patient is a 89-year-old female with past medical history significant for CAD, CKD, atrial fibrillation, hypothyroidism and anxiety who presented to [facility] ED for nausea, vomiting and diarrhea. Patient reports waking this morning and feeling nausous,
shotly after she had an episode of vomiting and a large episode of diarrhea. She reports stomach currently a little woozy and not sure if it is nausea or because she is hungry. Patient reports diarrhea episode so large facility staff had to shower
her to clean her up. Denies any fever, chills, cough, shortness of breath, chest pain or urinary symptoms.
Medical History
Past Medical History
Past Medical History: Reports Other
Additional Past Medical History:
CAD/MO
CKD
Atrial fibrillation/A-flutter Hx
Bradycardia hx
Orthostatic hypotension
Pulmonary hypertension
Cognitive deficit
Hypothyroidism
Anxiety
Dysphagia
Polymyalgia rheumatica
Chronic ambulatory dysfunction.
Past Surgical History: Reports Other
Additional Past Surgical History:
Left hip replacement December 2020
Social History
Tobacco: Non-smoker
Alcohol: None
Drug: None
Personal:
Living: Assisted Living ([facility])
Employment: Retired
Family History
Family History: Other (Father multiple strokes, MO age 82, mother history of heart disease age 92, brother DM2, cardiac issues, prostate CA, sister renal failure, DM 2, age 89)
Allergies / Home Medications
Allergies reflects when Allergies were last updated in [employer].
Home Medications with original date entered in [employer]
Allergy/Medication List:
Allergies
Allergy/AdvReac Type Severity Reaction Status Date / Time
No Known Allergies Allergy Unverified 10/29/24 17:47
Home Medications
acetaminophen 325 mg tablet (Tylenol) 650 mg PO Q6HPRN PRN mild pain 11/09/24
docusate sodium 100 mg capsule (Colace) 100 mg PO HS 11/09/24
furosemide 20 mg tablet (Lasix) 20 mg PO DAILY 11/09/24
levothyroxine 100 mcg tablet 100 mcg PO DAILY 11/09/24
midodrine 5 mg tablet 5 mg PO BID 11/09/24
ondansetron HCl 4 mg tablet 4 mg PO Q6H PRN nausea/vomiting 11/09/24
polyethylene glycol 3350 17 gram oral powder packet (Miralax) 17 g PO DAILY 11/09/24
prednisone 2.5 mg tablet 2.5 mg PO DAILY 11/09/24
apixaban 5 mg tablet (Eliquis) 2.5 mg (1/2 x 5 mg) PO BID #0 tabs 11/18/24
pantoprazole 20 mg tablet,delayed release 20 mg PO DAILY #30 tabs 11/18/24
Review of Systems
-
History Source: Patient
Constitutional: Reports No Symptoms
EENT: Reports No Symptoms
Respiratory: Reports No Symptoms
Cardiac: Reports No Symptoms
Abdomen/GI: Reports Nausea, Vomiting and Diarrhea; Denies Abdominal Pain
: Reports No Symptoms
Musculoskeletal: Reports No Symptoms
Skin: Reports No Symptoms
Neurological: Reports No Symptoms
Endocrine: Reports No Symptoms
Hematologic/Lymphatic: Reports No Symptoms
Psych: Reports No Symptoms
Physical Exam
Vital Signs
Vital Signs
Temp Pulse Resp BP Pulse Ox
98.6 F 60 16 118/91 99
11/26/24 14:52 11/26/24 14:52 11/26/24 14:52 11/26/24 14:52 11/26/24 14:52
Physical Exam
General: Well Developed, No Apparent Distress, Appears Chronically Ill and Cachectic
HEENT: NormoCephalic, Moist mucous membranes, Atraumatic and [place] Conjunctivae
Respiratory: Clear and Non Labored Respirations; No Rales, Rhonchi or Crackles
Cardiac: S1/S2 and Regular Rhythm; No Murmur or Rub
GI: Soft, Non Tender, Non Distended and Normal Bowel Sounds
Rectal: Deferred by Provider
Genito-urinary: Deferred by me
Musculoskeletal: No Clubbing, No Cyanosis and No Edema
Skin: Warm, Dry (bilateral lower extremities ) and IV/Catheter Site
Neuro: Awake, AO x 3 and Nonfocal/grossly intact
Psych: Calm
Laboratory Results
-
11/26/24 10:16
11/26/24 13:01
Laboratory Results
Lactic Acid 1.4 mmol/L (0.7-2.0) 11/26/24 10:16
Total Bilirubin Cancelled 11/26/24 13:01
AST Cancelled 11/26/24 13:01
ALT Cancelled 11/26/24 13:01
Alkaline Phosphatase Cancelled 11/26/24 13:01
Troponin I < 0.012 ng/ml 11/26/24 12:00
Lipase 61 U/L (23-300) 11/26/24 12:00
Data Reviewed
-
CT Scan: Report Reviewed by me (Abd/Pel: Limited examination in the absence of intravenous contrast and due to metallic streak artifact from the patient's left hip arthroplasty. CT findings are most suggestive of an infectious or inflammatory
enterocolitis with diffuse bowel wall thickening and fat stranding, most significantly i)
Medical Tests (Nuc Med, Echo, EKG etc): Report Reviewed by me (EKG: Atrial-paced rhythm with prolonged AV conduction LEFT AXIS DEVIATION RIGHT BUNDLE BRANCH BLOCK INFERIOR INFARCT , AGE UNDETERMINED T WAVE ABNORMALITY, CONSIDER LATERAL ISCHEMIA)
Lab Data: Labs Reviewed by me (K+ 5.3, BUN 59, Creat 1.4, est CrCl 21, eGFR 36.19)
Impression/Plan
-
IMPRESSION/PLAN:
#acute diarrhea
Stool studies: pending
Abd/Pel CT: Limited examination in the absence of intravenous contrast and due to metallic streak artifact from the patient's left hip arthroplasty.
CT findings are most suggestive of an infectious or inflammatory enterocolitis with diffuse bowel wall thickening and fat stranding, most significantly involving the distal ileum.
Small bilateral pleural effusions.
Left lower lobe opacity that may represent pneumonia, atelectasis, and/or scarring.
Other findings, as detailed above.
- Admit to telemetry
- NSS 75cc/hr
- antiemetics
- hold antibiotics for now, patient afebrile and without leukocytosis
#CKD
#hyperkalemia
K+ 5.3, BUN 59, Creat 1.4, est CrCl 21, eGFR 36.19
- D50W/insulin
- monitor electrolytes
- hold Kayexalate for acute diarrhea and enterocolitis
#Atrial fibrillation/A-flutter Hx
s/p pacemaker
EKG: Atrial-paced rhythm with prolonged AV conduction
LEFT AXIS DEVIATION
RIGHT BUNDLE BRANCH BLOCK
INFERIOR INFARCT , AGE UNDETERMINED
T WAVE ABNORMALITY, CONSIDER LATERAL ISCHEMIA
- continue Eliquis
#Bradycardia hx
s/p pacemaker
#Orthostatic hypotension
- continue midodrine
#Hypothyroidism
- continue levothyroxine
#Polymyalgia rheumatica
- continue prednisone
Code status: full code
DVT prophylaxis: Eliquis
--- NOTE | 2024-11-26 15:14 | W.PN.UPDATE ---
Update Note
Progress Note Update
I saw and examined the patient.
The PORTFOLIO CONSULTANT or PA's note was reviewed and I agree with the note.
Comment: 89-year-old female who presents with chief complaint of severe diarrhea as outlined in the H&P done mission.
118/91, 60, 16, 98.6 �F, 99% RA
Gen: NAD, Awake and alert
Eyes: EOMI, PERRLA, no scleral icterus.
Neck: supple.
CV: RRR, +S1/S2, no m/r/g.
Resp: CTAB, no rales, wheezes, or rhonchi.
Abd: +BS, soft, NT, ND
Skin: No rashes.
Neuro: CN 2-12 intact, non-focal.
Psych: Normal mood and affect.
CT A/P: Limited examination in the absence of intravenous contrast and due to metallic streak artifact from the patient's left hip arthroplasty. CT findings are most suggestive of an infectious or inflammatory enterocolitis with diffuse bowel wall
thickening and fat stranding, most significantly involving the distal ileum. Small bilateral pleural effusions. Left lower lobe opacity that may represent pneumonia, atelectasis, and/or scarring.
Acute diarrhea:
-follow stool studies (C diff, stool Cx)
-supportive care with IVFs, antiemetics
-hold off on antibiotics for now as pt afebrile and without leukocytosis
Symptomatic bradycardia s/p PPM
Recent B/L LE DVT: cont Eliquis
Chronic orthostatic hypotension: cont Midodrine
CKD3a
Hyperkalemia, D50W/insulin, then follow with IVFs. Hold off Kayexalate with current diarrhea and enterocolitis.
Hypothyroidism: cont Levoxyl
Paroxysmal atrial fibrillation: cont Eliquis
Polymyalgia rheumatica: Cont Prednisone
Raynaud's phenomenon
[2024-11-26 15:46] LABS: Glucose - Point of Care 73 mg/dl (70-99)
[2024-11-26] MEDS: NOVOLIN R 10 UNITS IV (15:53)
[2024-11-26] MEDS: DEXTROSE 50% SYRINGE 25 GRAMS IV (15:56)
[2024-11-26 16:56] LABS: Glucose - Point of Care 109 mg/dl (70-99)
[2024-11-26 17:54] LABS: Potassium 4.4 mmol/L (3.5-5.1)
[2024-11-26 18:49] LABS: Glucose - Point of Care 77 mg/dl (70-99)
[2024-11-26] MEDS: NSS 1000 IV (20:40)
[2024-11-26] MEDS: ELIQUIS 2.5 MG PO (20:41)
[2024-11-27] VITALS (14 sets, daily range): BP systolic 107–137; BP diastolic 57–65; PULSE 60
--- NOTE | 2024-11-27 08:13 | W.PN.HOSP.TC ---
Addendum entered and electronically signed by Eligio Sheldon MD 11/27/24 16:17:
Total time spent on d/c = 48 min. This included today's physical exam, progress note, review of laboratory and diagnostic data, preparation of discharge documents and prescriptions, and discussions about the pt's hospital course and discharge plan
with the patient and other bio medical technician involved in the patient's care.
Addendum entered and electronically signed by Eligio Sheldon MD 11/27/24 13:41:
Suspect unresponsive episode at [facility] was vasovagal. Will ask cards to see with recent PPM. Discussed with RN/CM.
Original Note:
Today's Communication/Plan
-
d/c
Assessment / Plan
Assessment / Plan
Gen: NAD, Awake and alert
Eyes: EOMI, PERRLA, no scleral icterus.
Neck: supple.
CV: remains RRR, +S1/S2, no m/r/g.
Resp: remains CTAB, no rales, wheezes, or rhonchi.
Abd: remains +BS, soft, NT, ND
Skin: No rashes.
Neuro: CN 2-12 intact, non-focal.
Psych: Normal mood and affect.
11/26/24 14:49 Feces/Stool C. difficile GDH Antigen & Toxins - Final
C. difficile antigen positive, toxin negative.
Clostridium difficile present, but toxin not detected.
Patient may be a carrier, colonized with nontoxinogenic
strain or the level of toxin in sample is below detection
limits. This information should be used in conjunction with
the patient's clinical history.
CT A/P: Limited examination in the absence of intravenous contrast and due to metallic streak artifact from the patient's left hip arthroplasty. CT findings are most suggestive of an infectious or inflammatory enterocolitis with diffuse bowel wall
thickening and fat stranding, most significantly involving the distal ileum. Small bilateral pleural effusions. Left lower lobe opacity that may represent pneumonia, atelectasis, and/or scarring.
Acute diarrhea:
-afebrile, no leukocytosis, hemodynamically stable
-C diff Ag POS, toxin NEG, no acute C diff infection
-supportive care with IVFs, antiemetics
-No indication for antibiotics as pt afebrile, without leukocytosis, hemodynamically stable, and with clinical improvement
Symptomatic bradycardia s/p PPM
Recent B/L LE DVT: cont Eliquis
Chronic orthostatic hypotension: cont Midodrine
CKD3a
Hyperkalemia (chronic), resolved
Hypothyroidism: cont Levoxyl
Paroxysmal atrial fibrillation: cont Eliquis
Polymyalgia rheumatica: Cont Prednisone
Raynaud's phenomenon
Medically cleared for discharge. Case management aware.
Anticipated Discharge: Today
Subjective/Interval History
-
Date of Service: November 27, 2024
Patient without acute complaints. As per discussion with RN, no further large diarrhea. She has had a couple 'smears.'
Objective Data
-
Labs:
Laboratory Results
11/27/24
06:00
WBC Pending
Hgb Pending
Hct Pending
Plt Count Pending
Sodium Pending
Potassium Pending
Chloride Pending
Carbon Dioxide Pending
BUN Pending
Creatinine Pending
Glucose Pending
Calcium Pending
Vital Signs:
Vital Signs
Temp Pulse Resp BP Pulse Ox
98.2 F 73 16 109/59 97
11/27/24 07:53 11/27/24 07:54 11/27/24 07:54 11/27/24 07:54 11/27/24 07:54
[2024-11-27] MEDS: ELIQUIS 2.5 MG PO (08:38)
[2024-11-27] MEDS: SYNTHROID 100 MCG PO (08:38)
[2024-11-27] MEDS: PROTONIX 20 MG PO (08:38)
[2024-11-27] MEDS: LASIX 20 MG PO (08:39)
[2024-11-27 08:42] LABS: Blood Urea Nitrogen 54 mg/dl (7-17); Calcium 8.1 mg/dl (8.4-10.2); Carbon Dioxide 20 mmol/L (22-30); Chloride 110 mmol/L (98-107); Estimated Creatinine Clearance 23 ml/min; Glucose 98 mg/dl (70-99); Potassium 4.7 mmol/L (3.5-5.1); Sodium 136 mmol/L (135-145); eGFR 39.55
[2024-11-27 08:48] LABS: Hematocrit 35.7 % (37.0-47.0); Hemoglobin 12.0 g/dL (12.0-16.0); Mean Corp Hgb Conc. 33.6 g/dL (33.0-37.0); Mean Corpuscular Volume 87.3 fL (81.0-99.0); Platelet Count 232 10^3/uL (130-400); Red Cell Dist. Width 15.1 % (11.5-14.5)
[2024-11-27] MEDS: DELTASONE 2.5 MG PO (10:30)
[2024-11-27] MEDS: NSS 1000 IV (10:31)
[2024-11-27 10:56] LABS: Urine Character Clear (Clear)
[2024-11-27] MEDS: ROCEPHIN 1000 MG IV (10:58)
[2024-11-27] MEDS: STERILE WATER FOR INJECTION 10 ML IV (10:59)
--- NOTE | 2024-11-27 11:15 | CM ---
Addendum entered by Kelley Sweeney 11/27/24 16:29:
attempted to leave message for patient daughter Meron that patient was returning home but uncertain if message went through. Updated nurse in ed.
Addendum entered by Kelley Sweeney 11/27/24 16:13:
Patient reviewed OBS form again and did not have energy to sign, indicated she understood form. CM spoke again with Rhea at the facility and updated her about patient return to facility. Per Rhae patient has been max assist prior to hospitalization
and nurse to call and give update. Please ask for Susan to give report. CM will continue to follow for discharge planning needs.
Plan; return to [facility]
Dragan call report to [phone]/ fax [phone].
Addendum entered by Kelley Sweeney 11/27/24 14:02:
Patient daughter asked patient to sign OBS form. CM completed transfer form for ambulance awaiting confirmation of discharge.
Addendum entered by Kelley Sweeney 11/27/24 11:24:
VM left for patient daughter re; OBS/TATUM form and [facility].
Original Note:
Patient seen in ED. Patient states that she lives in [facility]. Patient states that she uses walkers and wheelchairs. Patient takes care of the medications and assistance. CM called to [facility] and spoke with ANAHI Lambert. Per nurse at
[facility] patient has some contractures but is able to stand and take some steps. Patient has facility supports and her PCP is Dr. Sood. Patient is unaware of the pharmacy and stated that CM could call to patient daughter to review OBS/TATUM form.
CM left form in room. Per patient facility patient can return to them if concerns were resolved. Please call report to [phone]/ fax [phone]. CM will continue to follow for discharge planning needs.
Plan; return to [facility], patient will need ambulance transportation.
--- NOTE | 2024-11-27 11:18 | PTCARENOTE ---
Pt AOx3, very TELLER and mildly anxious. NS w/ 1st degree AVB and A pacing at times. L CW dressing noted, from 11/15 pacemaker placement. Pt incontinent of urine, yelling that it singh. Dr Sheldon notified. Urine sample sent. VSS. Bed assigned 424,
report sent.
--- NOTE | 2024-11-27 11:30 | PTCARENOTE ---
Pt AOx3, very [place] and mildly anxious. NS w/ 1st degree AVB and A pacing at times. L CW dressing noted, from 11/15 pacemaker placement. Pt incontinent of urine, yelling that it singh. Dr Sheldon notified. Urine sample sent. VSS.
[2024-11-27 12:36] LABS: Urine Squamous Cell >30 /LPF (Few); Urine Urothelial Cell >30 /LPF (FEW)
[2024-11-27 12:38] LABS: Urine White Cell 0-2 /HPF (0-5)
[2024-11-27] MEDS: TYLENOL 650 MG PO (12:44)
--- NOTE | 2024-11-27 14:49 | CON.CAR ---
Addendum entered and electronically signed by Obie Yanez MD 11/27/24 17:31:
I saw and examined the patient independently.
The DIRECTOR HOSPICE OPERATIONS's note was reviewed and I agree with the note with changes/additions below.
Comment:
89 yo female with PMH of DVT and paroxysmal A fib, on eliquis, symptomatic bradycardia s/p PPM is admitted following an unresponsive episode at [facility]. Her only complaint is loose bowels. She does not remember the episode. Records indicate she passed
out while trying to bilingual social worker shower with assistance. Exam with RRR, no murmurs, no edema. Tele: sinus rhythm and atrial pacing. EKG: Apaced, RBBB. Device interrogation: no arrhythmia, no device function.
Unresponsive/syncope. may be orthostatic episode in shower. No evidence of arrhythmia or issue with PPM. Follow up in office.
h/p PPM. Device interrogation normal. Office follow up.
Original Note:
Consultation
Consultation Request
Date/Time Consultation Requested: 11/27/24 1335
Date/Time Consultation Performed: 11/27/24 1420
Requesting Provider: Dr. Sheldon
Performing Provider: Cristiana BALES for Dr. Yanez
Reason for Consultation: unresponsive episode
Medical History
-
Chief Complaint: diarrhea
History of Present Illness:
89-year-old female with past medical history of A-fib/A-flutter (previously not on anti-coagulation due to fall risk), RBBB and bradycardia (s/p recent PPM), orthostatic hypotension on midodrine, pulmonary hypertension, hypothyroidism, polymyalgia
rheumatica on chronic steroids, and recently started on Eliquis for DVT. She is here in the ER and her main complaint is diarrhea. We are consulted since she was sent from her facility for unresponsive episode and she has recent pacemaker placement.
She does not recall this episode, but per EMS notes, she had nausea and vomiting and diarrhea and was assistent into the shower and lost consciousness while standing and was helped to the chair. Pacemaker interrogation reviewed and working fine and
no arrhythmia.
Past Medical History
Past Medical History: Arrhythmias (Afib) and Other (Bradycardia, orthostatic hypotension, pulmonary hypertension, hypothyroidism, polymyalgia rheumatica)
Social History
Tobacco: Non-Smoker
Living: Other (facility)
Family History
Family History: Reviewed & Not Pertinent and Other
Allergies / Home Medications
Allergy/AdvReac Type Severity Reaction Status Date / Time
No Known Allergies Allergy Unverified 10/29/24 17:47
�Medication �Instructions �Recorded �Confirmed �Type
acetaminophen 325 mg tablet 650 mg PO Q6HPRN PRN mild pain 11/09/24 11/26/24 History
(Tylenol)
docusate sodium 100 mg capsule 100 mg PO HS Constipation 11/09/24 11/26/24 History
(Colace)
furosemide 20 mg tablet (Lasix) 20 mg PO DAILY Fluid 11/09/24 11/26/24 History
Retention/Swelling
levothyroxine 100 mcg tablet 100 mcg PO DAILY Thyroid 11/09/24 11/26/24 History
midodrine 5 mg tablet 5 mg PO BID Blood Pressure 11/09/24 11/26/24 History
ondansetron HCl 4 mg tablet 4 mg PO Q6H PRN nausea/vomiting 11/09/24 11/26/24 History
polyethylene glycol 3350 17 gram 17 g PO DAILY Constipation 11/09/24 11/26/24 History
oral powder packet (Miralax)
prednisone 2.5 mg tablet 2.5 mg PO DAILY inflammation 11/09/24 11/26/24 History
pantoprazole 20 mg tablet,delayed 20 mg PO DAILY #30 tabs 11/18/24 11/26/24 Rx
release
apixaban 2.5 mg tablet (Eliquis) 2.5 mg PO BID Blood Clot 11/26/24 11/26/24 History
Prevention/Tx
aspirin 81 mg chewable tablet 81 mg PO DAILY Blood Clot 11/26/24 11/26/24 History
Prevention/Tx
Review of Systems
-
History Source: Patient and Other (chart)
All other systems: Negative unless noted
Abdomen/GI: Nausea, Vomiting and Diarrhea
Neurological: Other (unresponsive episode)
Physical Exam
Vital Signs
Temp Pulse Resp BP Pulse Ox
98.2 F 65 17 107/65 97
11/27/24 07:53 11/27/24 13:00 11/27/24 13:00 11/27/24 12:31 11/27/24 13:38
Lab Results
11/27/24 08:18
11/27/24 08:18
Troponin I < 0.012 ng/ml 11/26/24 12:00
Physical Exam
General: Well Developed and No Apparent Distress
HEENT: Normocephalic and Anicteric
Respiratory: Clear and Non Labored Respirations
Cardiac: Regular Rhythm
Skin: Warm, Dry and Other (left pectoral incision site no drainage or swelling)
Neuro: Awake, Alert and Oriented
Psych: Calm
Impression / Plan
-
Diarrhea:
-per primary team
LOC:
-per notes after GI issue and standing in shower- vagal versus orthostatic (she's on midodrine- continue). No arrhythmias on PPM interrogation and device working fine. Recent echo with normal EF.
Bradycardia s/p PPM:
-device is working fine
-I removed Aquacel dressing. No s/s infection. Steri strips remain. Care instructions placed in chart.
-will have our office call to arrange follow-up
PAF:
-stable in SR
-on Eliquis for DVT's, of note was not previously on Eliquis for AFIB due to falls
DVT's:
-on Eliquis
Orthostatic hypotension:
-on midodrine
--- NOTE | 2024-11-27 16:18 | W.DCSUMMARY ---
Discharge Summary
Discharge Data
Date of Admission: 11/26/24
Date of Discharge: 11/27/24
-
Pending Results: No
Hospital Course
Primary diagnoses:
Acute enterocolitis
Secondary diagnoses:
Recent bilateral lower extremity deep vein thrombosis
Chronic orthostatic hypotension
Chronic kidney disease 3a
Hyperkalemia (chronic), resolved
Hypothyroidism
Paroxysmal atrial fibrillation
Polymyalgia rheumatica
Raynaud's phenomenon
Consultants:
Cardiology
Imaging:
CT A/P: Limited examination in the absence of intravenous contrast and due to metallic streak artifact from the patient's left hip arthroplasty. CT findings are most suggestive of an infectious or inflammatory enterocolitis with diffuse bowel wall
thickening and fat stranding, most significantly involving the distal ileum. Small bilateral pleural effusions. Left lower lobe opacity that may represent pneumonia, atelectasis, and/or scarring.
Hospital course: 89-year-old female who was admitted yesterday after having an episode of diarrhea at her personal care facility as outlined in the H&P done on admission. The patient was afebrile and had no leukocytosis. Her diarrhea resolved.
Her C diff Ag POS, toxin NEG, no acute C diff infection. She received supportive care with IV fluids and antiemetics. There was no indication for antibiotics as the patient was afebrile, without leukocytosis, hemodynamically stable, and with
clinical improvement. While hospitalized the patient was seen in consultation by cardiology as her personal care facility stated she had an unresponsive episode. I suspect this was vasovagal and related to her episode of diarrhea. As per
cardiology the patient's recently placed permanent pacemaker was functioning normally. Interrogation showed no arrhythmias. Cardiology also suspected that her loss of consciousness was vagal versus orthostatic.
Discharge Plan
-
Patient Disposition: Assisted Living
Discharge Diagnosis/Procedures: Diarrhea due to enterocolitis
Condition: Good
Diet: Regular
Activity: With assistance
Driving Restrictions: No driving
Blood Work: BMP and CBC in 4 days, prescription from PCP
Wound Care: Okay to wash pacemaker incision site with soap and water, but do not soak. If steri-strips do not fall off on their own in next 5 days, please remove.
Activity Restrictions/Additional Instructions:
Monitor for further diarrhea versus constipation after stopping Colace/MiraLAX.
Stand Alone Forms: DC Inst - Implanted Device
Referrals:
Obie Yanez MD [Active, Cardiology]
Referral Note: office will call to make an appointment
Todd Sood DO [Family Provider] - in less than 1 week
Prescriptions:
New
phenazopyridine 100 mg Tablet
100 mg PO TIDPRN PRN (Reason: dysuria) Qty: 30 0RF
Continued
acetaminophen [Tylenol] 325 mg Tablet
650 mg PO Q6HPRN PRN (Reason: mild pain)
ondansetron HCl 4 mg Tablet
4 mg PO Q6H PRN (Reason: nausea/vomiting)
midodrine 5 mg Tablet
5 mg PO BID
Patient Comments:
11/26/2024, hold if SBP>110.
levothyroxine 100 mcg Tablet
100 mcg PO DAILY
prednisone 2.5 mg Tablet
2.5 mg PO DAILY
furosemide [Lasix] 20 mg Tablet
20 mg PO DAILY
pantoprazole 20 mg Tablet,Delayed Release (Dr/Ec)
20 mg PO DAILY Qty: 30 0RF
aspirin 81 mg Tablet,Chewable
81 mg PO DAILY
Eliquis 2.5 mg Tablet
2.5 mg PO BID
Discontinued
polyethylene glycol 3350 [Miralax] 17 gram Powder In Packet
17 g PO DAILY
docusate sodium [Colace] 100 mg Capsule
100 mg PO HS
Discharge Orders:
Discharge Patient (As Directed); Ordered 11/27/24
Ordered By: Eligio Sheldon
Discharge Date and Time
Print Language: SYRIAC
== END 2024-11-27 17:50 | disposition home or self-care (01) ==
LOC: ED 16:01
PROVIDERS: Nurse Practitioner Family; Physician Assistant; ADMITTING PHYSICIAN Internal Medicine; CONSULT PHYSICIAN Internal Medicine; EMERGENCY PHYSICIAN Emergency Medicine; FAMILY PHYSICIAN Internal Medicine
DX: K52.9 Noninfective gastroenteritis and colitis, unspecified (principal); N18.31 Chronic kidney disease, stage 3a; E87.5 Hyperkalemia; E03.9 Hypothyroidism, unspecified; I48.0 Paroxysmal atrial fibrillation; M35.3 Polymyalgia rheumatica; I73.00 Raynaud's syndrome without gangrene; I48.92 Unspecified atrial flutter; Z95.0 Presence of cardiac pacemaker; Z86.718 Personal history of other venous thrombosis and embolism; I95.1 Orthostatic hypotension; I25.10 Atherosclerotic heart disease of native coronary artery without angina pectoris; Z79.899 Other long term (current) drug therapy; I50.9 Heart failure, unspecified; Z79.01 Long term (current) use of anticoagulants
CPT/HCPCS: 74176; 80048; 80053; 81003; 81015; 82962; 83605; 83690; 83735; 84132; 84484; 85025; 85027; 87045; 87046; 87324; 87427; 87449; 93005; 93288; 96374; 99285; G0378

== ENCOUNTER → 2024-12-02 10:47 | Outpatient (REF) | payer OTHER, SELFPAY ==
[2024-12-02 12:20] LABS: Hematocrit 35.8 % (37.0-47.0); Hemoglobin 11.9 g/dL (12.0-16.0); Mean Corp Hgb Conc. 33.2 g/dL (33.0-37.0); Mean Corpuscular Volume 87.7 fL (81.0-99.0); Nucleated Red Blood Cells % 0 %; Platelet Count 220 10^3/uL (130-400); Red Cell Dist. Width 14.8 % (11.5-14.5)
[2024-12-02 12:37] LABS: Blood Urea Nitrogen 33 mg/dl (7-17); Calcium 7.7 mg/dl (8.4-10.2); Carbon Dioxide 19 mmol/L (22-30); Chloride 110 mmol/L (98-107); Glucose 80 mg/dl (70-99); Potassium 4.3 mmol/L (3.5-5.1); Sodium 135 mmol/L (135-145); eGFR 48.33
== END ==
LOC: OLABPATH 10:47
PROVIDERS: ATTENDING PHYSICIAN Internal Medicine
DX: I50.9 Heart failure, unspecified (principal)
CPT/HCPCS: 36415; 80048; 85025

== ENCOUNTER 2024-12-26 04:06 | Inpatient (IN) | payer OTHER, SELFPAY ==
[2024-12-25 21:30] VITALS: BP 105/58
[2024-12-25 22:28] LABS: Hematocrit 37.2 % (37.0-47.0); Hemoglobin 12.1 g/dL (12.0-16.0); Mean Corp Hgb Conc. 32.5 g/dL (33.0-37.0); Mean Corpuscular Volume 89.9 fL (81.0-99.0); Nucleated Red Blood Cells % 0 %; Platelet Count 220 10^3/uL (130-400); Red Cell Dist. Width 15.1 % (11.5-14.5)
[2024-12-25 22:39] LABS: ALT (SGPT) < 10 U/L (0-35); AST (SGOT) 9 U/L (14-36); Albumin 3.3 g/dl (3.5-5.0); Alkaline Phosphatase 54 U/L (38-126); Blood Urea Nitrogen 44 mg/dl (7-17); Calcium 7.8 mg/dl (8.4-10.2); Carbon Dioxide 26 mmol/L (22-30); Chloride 106 mmol/L (98-107); Estimated Creatinine Clearance 19 ml/min; Glucose 107 mg/dl (70-99); Potassium 4.3 mmol/L (3.5-5.1); Sodium 139 mmol/L (135-145); Total Protein 6.1 g/dl (6.3-8.2); eGFR 30.83
[2024-12-25 22:44] LABS: Urine Character Clear (Clear)
[2024-12-25 23:00] VITALS: BP 106/60
[2024-12-25 23:10] LABS: Urine Red Blood Cell 21-25 /HPF (0-2)
[2024-12-26] VITALS (12 sets, daily range): BP systolic 95–136; BP diastolic 50–63; BMI 23.8
[2024-12-26 00:25] LABS: Troponin I < 0.012 ng/ml
--- NOTE | 2024-12-26 00:38 | ED.GENMED ---
History of Present Illness
General
Chief Complaint: Breathing Problem
Time Seen by Provider: 12/25/24 21:32
History of Present Illness
History of Present Illness:
89-year-old female with history of A-fib, CAD, sick sinus syndrome status post pacemaker, and CKD presents to the emergency department for evaluation of painful urination. She states she has burning whenever she attempts to urinate beginning
yesterday. She reportedly was hypoxic at her nursing facility while off oxygen, is on 2 L at baseline. She denies any pain or dyspnea at present. She states she did not feel short of breath earlier in the day.
Past History
Past History
ED Past Medical History: Arrthythmia (afib), CAD, Hypercholesterolemia, OH, Renal failure, Hypothyroidism, Psychiatric (anxiety ), Other (bilateral LE DVTs on Eliquis) and Other (orthostatic hypotension, bradycardia)
ED Past Surgical History: None
Social History
Tobacco: Non-smoker
Alcohol: None
Living: assisted living
Employment: Retired
Review of Systems
Review of Systems
Allergies reviewed?: Yes
All Other Systems: ROS reviewed and negative except as documented in HPI and ROS
Phy Exam
Physical Exam
Physical Exam:
GEN: Well appearing, NAD, WDWN, widespread anasarca
HEENT: Oral mucosa moist, no scleral icterus
Cardiac: Regular rate
Lung: No respiratory distress, no tachypnea, markedly diminished breath sounds
MSK: No gross deformity or injuries
Skin: Good color, no pallor or jaundice, no rashes
Neuro: AO x3, moves all extremities freely
Psych: Calm, cooperative
Scores
Heart Failure Risk
Heart Failure Risk Score: Not Applicable
Course
Orders/Labs/Results
Orders:
Orders
12/25/24 22:05
CR Chest - 2 Views Urgent
Comment:
Reason For Exam: hypoxia
12/25/24 22:17
Complete Blood Count/With Diff Urgent
Comprehensive Metabolic Panel Urgent
12/25/24 22:18
Urinalysis Reflex To Culture Urgent
Date Specimen was Collected: 12/25/24
Time Specimen was Collected: 22:07
Urine Microscopic Reflex Cult Urgent
12/25/24 23:18
Electrocardiogram (*1) Urgent
Reason for Study: Shortness of Breath
EKG- Treatment ONCE
12/25/24 23:20
CT Abd/pel Without Iv Or Oral Urgent
Comment:
Reason For Exam: dysuria, hematuria
12/25/24 23:52
NT-proBNP Urgent
Troponin I Urgent
12/26/24 01:07
CefTRIAXone [Rocephin] 1,000 mg IV NOW STA
Furosemide [Lasix] 40 mg IV NOW STA
Abnormal Lab Results
12/25/24 12/25/24
22:17 22:18
RBC 4.14 L 10^6/uL
(4.20-5.40)
MCHC 32.5 L g/dL
(33.0-37.0)
RDW 15.1 H %
(11.5-14.5)
BUN 44 H mg/dl
(7-17)
Creatinine 1.6 H mg/dL
(0.6-1.0)
Glucose 107 H mg/dl
(70-99)
Calcium 7.8 L mg/dl
(8.4-10.2)
AST 9 L U/L
(14-36)
Total Protein 6.1 L g/dl
(6.3-8.2)
Albumin 3.3 L g/dl
(3.5-5.0)
Ur Occult Blood Reflex 4+ A
(Negative)
Urine RBC 21-25 A /HPF
(0-2)
Urine Bacteria (Reflex) Few A
(Negative)
Urine Albumin (Reflex) 3+ A
(Neg - Trace)
12/25/24 22:17
12/25/24 22:17
Vital Signs
Initial and Last Documented VS:
Initial Vital Signs
Temp Pulse Resp BP Pulse Ox
98.6 F 72 18 105/58 92
12/25/24 21:30 12/25/24 21:30 12/25/24 21:30 12/25/24 21:30 12/25/24 21:30
Last Documented Vital Signs
Temp Pulse Resp BP Pulse Ox
98.6 F 73 24 106/60 99
12/25/24 21:30 12/25/24 22:15 12/25/24 22:15 12/25/24 23:00 12/26/24 00:40
MDM/Problems Addressed
MDM/Problems Addressed:
Although patient's urinalysis shows hematuria with no white blood cells, she does have bladder wall thickening on scan coupled with symptom of dysuria suspicious for acute cystitis. Will treat accordingly with IV antibiotics. She is also noted to
be markedly volume overloaded with diffuse anasarca and increasing pleural effusions, notable for 5+ kilogram weight gain since prior visit, will admit for IV diuresis
*Pulse Oximetry
SaO2: 99
Nasal Cannula flow liters per minute: 98
Oxygen Mode of Delivery: Room air
Patient hypoxic: no
*Critical Care Note
Total Time (30-74mins, 75-104mins- exclusive of procedures): Not Applicable
ED Attending Note
-
Portions of this chart may have been created with voice recognition software.� Occasional wrong word or��sound alike� substitutions may have occurred due to the inherent limitations of voice recognition software.
Discharge Plan
Departure
Patient Disposition: Admit
Date of Disposition: 12/26/24
Time of Disposition: 01:10
Admit to: Med/Surg
Presentation/result/management discussed w/ accepting MD/DO: Hospitalist
Discharge Problem:
Acute UTI, Anasarca, Pleural effusion
Prescriptions:
No Action
acetaminophen [Tylenol] 325 mg Tablet
650 mg PO Q6HPRN PRN (Reason: mild pain)
ondansetron HCl 4 mg Tablet
4 mg PO Q6H PRN (Reason: nausea/vomiting)
midodrine 5 mg Tablet
5 mg PO BID
Patient Comments:
11/26/2024, hold if SBP>110.
levothyroxine 100 mcg Tablet
100 mcg PO DAILY
prednisone 2.5 mg Tablet
2.5 mg PO DAILY
furosemide [Lasix] 20 mg Tablet
20 mg PO DAILY
pantoprazole 20 mg Tablet,Delayed Release (Dr/Ec)
20 mg PO DAILY Qty: 30 0RF
aspirin 81 mg Tablet,Chewable
81 mg PO DAILY
Eliquis 2.5 mg Tablet
2.5 mg PO BID
phenazopyridine 100 mg Tablet
100 mg PO TIDPRN PRN (Reason: dysuria) Qty: 30 0RF
Referrals:
Todd Sood DO [Family Provider]
Interventions
Interventions:
*Risk Screen - Suicide Last Done: 12/25/24 21:35
*General Assessment Last Done: 12/25/24 21:35
*Neglect/Abuse Screening Last Done: 12/25/24 21:35
*ED- Fall Risk Assessment Last Done: 12/25/24 21:35
*ED COVID-19 Vaccine History Last Done: 12/25/24 21:35
ED- Cardiac Assessment Last Done: 12/25/24 21:36
ED- Pulmonary Assessment Last Done: 12/25/24 21:36
Discharge Date and Time
Print Language: CAMBODIAN
[2024-12-26] MEDS: LASIX 40 MG IV (01:41)
[2024-12-26] MEDS: ROCEPHIN 1000 MG IV (01:42)
--- NOTE | 2024-12-26 03:35 | HPS.HSE ---
Family Physician
-
Family Physician: Todd Sood
Chief Complaint
-
Dysuria, Hypoxemia
History of Present Illness
Patient is an 89y F with PMH significant for A-Fib, CKD and PMR who presents to ED from local [place] for evaluation of dysuria and hypoxemia. History obtained from patient and NH record / reports. Patient complains primarily of burning on
urination. She denies any burning independent of urination. No flank pain or abdominal pain. Note that she has been on Pyridium PRN dysuria since the end of November per [facility] JUL.
This evening at the [place], patient was noted to be hypoxemic with SpO2 measured 80-85%. She is not chronically on O2. She was sent to the ED for further evaluation and treatment.
Patient denies any chest pain or dyspnea.
She denies any other current complaints.
Medical History
Past Medical History
Past Medical History: Reports Other
Additional Past Medical History:
CAD/HI
CKD
Atrial fibrillation/A-flutter Hx
Bradycardia hx
Orthostatic hypotension
Pulmonary hypertension
Cognitive deficit
Hypothyroidism
Anxiety
Dysphagia
Polymyalgia rheumatica
Chronic ambulatory dysfunction
Past Surgical History: Reports Other
Additional Past Surgical History:
Left hip replacement December 2020
PPM Placement
Social History
Tobacco: Non-smoker
Alcohol: None
Drug: None
Personal:
Living: Assisted Living ([facility])
Employment: Retired
Family History
Family History: Other (Father multiple strokes, HI age 82, mother history of heart disease age 92, brother DM2, cardiac issues, prostate CA, sister renal failure, DM 2, age 89)
Allergies / Home Medications
Allergies reflects when Allergies were last updated in [facility].
Home Medications with original date entered in [facility]
Allergy/Medication List:
Allergies
Allergy/AdvReac Type Severity Reaction Status Date / Time
No Known Allergies Allergy Unverified 10/29/24 17:47
Home Medications
acetaminophen 325 mg tablet (Tylenol) 650 mg PO Q6HPRN PRN mild pain 11/09/24
furosemide 20 mg tablet (Lasix) 20 mg PO DAILY Fluid Retention/Swelling 11/09/24
levothyroxine 100 mcg tablet 100 mcg PO DAILY Thyroid 11/09/24
midodrine 5 mg tablet 5 mg PO BID Blood Pressure 11/09/24
ondansetron HCl 4 mg tablet 4 mg PO Q6H PRN nausea/vomiting 11/09/24
prednisone 2.5 mg tablet 2.5 mg PO DAILY inflammation 11/09/24
pantoprazole 20 mg tablet,delayed release 20 mg PO DAILY #30 tabs 11/18/24
apixaban 2.5 mg tablet (Eliquis) 2.5 mg PO BID Blood Clot Prevention/Tx 11/26/24
aspirin 81 mg chewable tablet 81 mg PO DAILY Blood Clot Prevention/Tx 11/26/24
phenazopyridine 100 mg tablet 100 mg PO TIDPRN PRN dysuria #30 tabs 11/27/24
lorazepam 0.5 mg tablet 0.5 mg PO Q8HPRN PRN Anxiety 12/26/24
Review of Systems
-
Unable to obtain full review of systems at this time due to: Dementia
History Source: Patient
Constitutional: Denies Fever or Chills
Respiratory: Denies Cough or Trouble Breathing
Cardiac: Denies Chest Pain or Palpitations
Abdomen/GI: Denies Abdominal Pain, Nausea or Vomiting
: Reports Dysuria and Frequency; Denies Flank Pain
Neurological: Denies Dizzy or Headache
Physical Exam
Vital Signs
Vital Signs
Temp Pulse Resp BP Pulse Ox
98.6 F 60 21 99/51 94
12/25/24 21:30 12/26/24 01:41 12/26/24 01:15 12/26/24 01:00 12/26/24 01:15
Physical Exam
General: Other (89y F in no acute distress.)
HEENT: Moist mucous membranes and PERRLA
Respiratory: Other (Decreased BS at bases. No W/R/R.)
Cardiac: S1/S2, Irregular Rhythm and Murmur (II/ DANIA)
GI: Soft, Non Tender, Non Distended and Normal Bowel Sounds
Musculoskeletal: No Clubbing, No Cyanosis and Other (2+ pitting edema b/l LEs.)
Neuro: Awake and Alert
Laboratory Results
-
12/25/24 22:17
12/25/24 22:17
Laboratory Results
Total Bilirubin 0.3 mg/dl (0.2-1.3) 12/25/24 22:17
AST 9 U/L (14-36) L 12/25/24 22:17
ALT < 10 U/L (0-35) 12/25/24 22:17
Alkaline Phosphatase 54 U/L (38-126) 12/25/24 22:17
Troponin I < 0.012 ng/ml 12/25/24 23:52
Impression/Plan
-
A/P: Patient is an 89y F with PMH significant for CHF, A-Fib and CKD who presents to ED for evaluation of hypoxemia and dysuria.
Acute on Chronic HFpEF
Bilateral Pleural Effusions - likely secondary to the above
Acute Hypoxemic respiratory Failure secondary to the above
- Admit for further evaluation and treatment.
- New hypoxemia, increased b/l pleural effusions, increased BNP and significant increase in weight from prior admission.
- IV Lasix BID for now.
- Follow I/Os, daily weights, etc.
- Continue usual midodrine for BP support / to allow effective diuresis.
- Echo done in November with EF 60-70% and mild - moderate TR.
- Follow for clinical improvement / improvement in hypoxemia / etc.
- Consider IR eval / thoracentesis if no significant improvement with diuresis.
- Cardiology evaluation for additional recommendations.
Dysuria
- Unclear etiology. UA with RBCs but no nitrates, WBCs, etc.
- Does not appear c/w acute infection despite reported symptoms.
- Would observe off of abx for now.
- ? chronic complaint with Pyridium noted on JUL since November.
- Consider trial of gabapentin, amitriptyline, etc for symptom control.
Paroxysmal Atrial Fibrillation
s/p PPM Placement
- Stable. Continue Eliquis for stroke risk reduction.
CKD III
- Stable. SCr with range from 1.1 - 1.6 over the past several hospital stays.
- Monitor for any changes with diuresis.
Orthostatic Hypotension
- Continue midodrine as noted above.
Polymyalgia Rheumatica
- Stable on chronic prednisone. Continue current dose for now.
DVT Prophylaxis: On Eliquis
Code Status: Full
[2024-12-26] MEDS: SYNTHROID 100 MCG PO (06:04)
[2024-12-26 07:30] LABS: Hematocrit 38.0 % (37.0-47.0); Hemoglobin 12.4 g/dL (12.0-16.0); Mean Corp Hgb Conc. 32.6 g/dL (33.0-37.0); Mean Corpuscular Volume 88.4 fL (81.0-99.0); Platelet Count 197 10^3/uL (130-400); Red Cell Dist. Width 15.0 % (11.5-14.5)
[2024-12-26 07:53] LABS: Blood Urea Nitrogen 43 mg/dl (7-17); Calcium 7.5 mg/dl (8.4-10.2); Carbon Dioxide 24 mmol/L (22-30); Chloride 107 mmol/L (98-107); Estimated Creatinine Clearance 28 ml/min; Glucose 84 mg/dl (70-99); Potassium 4.3 mmol/L (3.5-5.1); Sodium 140 mmol/L (135-145); eGFR 48.33
--- NOTE | 2024-12-26 08:15 | W.PN.HOSP.TC ---
Today's Communication/Plan
-
Continue diuretics
Monitor electrolytes
Assessment / Plan
Assessment / Plan
Impression:
Patient is an 89y F with PMH significant for A-Fib, CKD and PMR who presents to ED from local [place] for evaluation of dysuria and hypoxemia. History obtained from patient and [place] record / reports. Patient complains primarily of burning on
urination. She denies any burning independent of urination. No flank pain or abdominal pain. Note that she has been on Pyridium PRN dysuria since the end of November per [place] JUL.
The evening of admisison, patient was noted to be hypoxemic with SpO2 measured 80-85%. She is not chronically on O2. She was sent to the ED for further evaluation and treatment.
Patient denies any chest pain or dyspnea.
She denies any other current complaints.
Admitted and treated for acute diastolic CHF exacerbation.
Seen by cardiology
Assessment/plan:
Acute on chronic diastolic CHF with Acute Hypoxemic respiratory Failure secondary CHF
Bilateral Pleural Effusions - likely secondary to CHF
Patient presented with shortness of breath.
BNP level is elevated.
Continue IV diuresing in form of Lasix 20 mg twice daily
Daily weight.
Strict I's and O's.
Consulted cardiology.
Most recent echo in November with EF 60-70% and mild - moderate TR.
Dysuria
- Unclear etiology. UA with RBCs but no nitrates, WBCs, etc.
- Does not appear c/w acute infection despite reported symptoms.
- Would observe off of abx for now.
- ? chronic complaint with Pyridium noted on JUL since November.
- Consider trial of gabapentin, amitriptyline, etc for symptom control.
Paroxysmal Atrial Fibrillation
s/p PPM Placement
- Stable. Continue Eliquis for stroke risk reduction.
CKD III
- Stable. SCr with range from 1.1 - 1.6 over the past several hospital stays.
- Monitor for any changes with diuresis.
Orthostatic Hypotension
- Continue midodrine as noted above.
Polymyalgia Rheumatica
- Stable on chronic prednisone. Continue current dose for now.
CODE STATUS: Full code
DVT prophylaxis: Eliquis
Diet: Regular diet
Disposition: Continue IV Lasix.
Total time spent on today's encounter was 65 minutes which included time spent in counseling the patient/family regarding diagnosis and treatment plan as listed above, goals of care, and symptom management. Case was discussed with nursing staff,
specialists, and care coordinators/case management. All labs and imaging personally reviewed by me. Remainder the time spent in detailed review of previous records, lab data, imaging, and other medical provider documentation.
Anticipated Discharge: > 48 hours
Subjective/Interval History
-
Date of Service: December 26, 2024
Patient seen and examined at bedside, denies any chest pain , shortness of breath Improved, no abdominal pain, no nausea, no vomiting, no diarrhea or constipation.
lower extremity edema improved.
Objective Data
-
Labs:
Laboratory Results
12/25/24 12/26/24
22:17 07:09
WBC 7.0 6.0
Hgb 12.1 12.4
Hct 37.2 38.0
Plt Count 220 197
Sodium 139 140
Potassium 4.3 4.3
Chloride 106 107
Carbon Dioxide 26 24
BUN 44 H 43 H
Creatinine 1.6 H 1.1 H
Glucose 107 H 84
Calcium 7.8 L 7.5 L
Total Bilirubin 0.3
AST 9 L
ALT < 10
Alkaline Phosphatase 54
Vital Signs:
Vital Signs
Temp Pulse Resp BP Pulse Ox
97.7 F 61 20 114/57 100
12/26/24 07:50 12/26/24 07:50 12/26/24 07:50 12/26/24 07:50 12/26/24 07:50
I&O
12/25/24 12/26/24 12/27/24
06:59 06:59 06:59
Intake Total 0 / 0
Output Total 400 / 400
Balance -400 / -400
Physical Exam
-
General: Well Developed, Well Nourished, No Apparent Distress and Comfortable
HEENT: Normocephalic, Atraumatic, Moist Mucous Membranes, No Ptosis, PERRLA and Nose Appears Normal
Respiratory: Rales, Rhonchi and Non Labored Respirations
Cardiac: Regular Rhythm and S1/S2
Breast: Deferred by me
GI: Soft, Nontender, Nondistended and Normal Bowel Sounds
Genito-urinary: No Costovertebral Tender
Musculoskeletal: No Clubbing, No Cyanosis, Edema, Right Lower Extrem and Edema, Left Lower Extrem
Skin: Warm
Neuro: Awake, Alert, Oriented, AO x 3 and No Motor Deficits
Psych: Calm
Data Reviewed
-
Diagnostic Radiology: Image personally visualized and interpreted and Report Reviewed by me
CT Scan: Image personally visualized and interpreted and Report Reviewed by me
Ultrasound: Image personally visualized and interpreted and Report Reviewed by me
MRI: Image personally visualized and interpreted and Report Reviewed by me
Medical Tests (Nuc Med, Echo etc): Image personally visualized and interpreted and Report Reviewed by me
Labs: Labs Reviewed by me
Old Records: Reviewed
--- NOTE | 2024-12-26 08:26 | CON.CAR ---
Addendum entered and electronically signed by Jose Morrell MD 12/26/24 10:20:
I saw and examined the patient.
The CAUSE ANALYST's note was reviewed and I agree with the note.
Comment:
89-year-old female with past medical history of HFpEF, A-fib/A-flutter (on AC), DVT, PPM, orthostatic hypotension on midodrine who presents with hypoxia. Cardiology consulted for CHF.
Physical exam: RRR, no murmurs, lungs clear anteriorly, 2+ bilateral LE edema
TTE 11/11/24: EF 65-70%, dilated and decreased RV, aortic sclerosis, mild/mod TR (PASP 55-60 mmHg)
Continue IV diuresis. No SGLT2i given concern for UTI. We will continue to follow. No need for repeat echo. Just had one in November.
Original Note:
Consultation
Consultation Request
Date/Time Consultation Requested: 12/26/24512
Date/Time Consultation Performed: 12/26/24826
Requesting Provider: Dr. Baires
Performing Provider: Cristiana BALES for Dr. Morrell
Reason for Consultation: CHF
Medical History
-
Chief Complaint: dysuria, hypoxemia, SOB
History of Present Illness:
89-year-old female with past medical history of A-fib/A-flutter (previously not on anti-coagulation due to fall risk), RBBB and bradycardia (s/p recent PPM), orthostatic hypotension on midodrine, pulmonary hypertension, hypothyroidism, polymyalgia
rheumatica on chronic steroids, HFpEF, and recently started on Eliquis for DVT. Per chart, she has had burning with urination. O2 sat reported in the low 80's at her facility. She does report SOB. She is having no CP. Initial trop normal and patient
declining any further labs today. She is admitted with [id number] HFpEF.
Past Medical History
Past Medical History: Arrhythmias (Afib) and Other (Bradycardia, orthostatic hypotension, pulmonary hypertension, hypothyroidism, polymyalgia rheumatica)
Social History
Tobacco: Non-Smoker
Living: Other (facility)
Family History
Family History: Reviewed & Not Pertinent and Other
Allergies / Home Medications
Allergy/AdvReac Type Severity Reaction Status Date / Time
No Known Allergies Allergy Unverified 10/29/24 17:47
�Medication �Instructions �Recorded �Confirmed �Type
acetaminophen 325 mg tablet 650 mg PO Q6HPRN PRN mild pain 11/09/24 12/26/24 History
(Tylenol)
furosemide 20 mg tablet (Lasix) 20 mg PO DAILY Fluid 11/09/24 12/26/24 History
Retention/Swelling
levothyroxine 100 mcg tablet 100 mcg PO DAILY Thyroid 11/09/24 12/26/24 History
midodrine 5 mg tablet 5 mg PO BID Blood Pressure 11/09/24 12/26/24 History
ondansetron HCl 4 mg tablet 4 mg PO Q6H PRN nausea/vomiting 11/09/24 12/26/24 History
prednisone 2.5 mg tablet 2.5 mg PO DAILY inflammation 11/09/24 12/26/24 History
pantoprazole 20 mg tablet,delayed 20 mg PO DAILY #30 tabs 11/18/24 12/26/24 Rx
release
apixaban 2.5 mg tablet (Eliquis) 2.5 mg PO BID Blood Clot 11/26/24 12/26/24 History
Prevention/Tx
aspirin 81 mg chewable tablet 81 mg PO DAILY Blood Clot 11/26/24 12/26/24 History
Prevention/Tx
phenazopyridine 100 mg tablet 100 mg PO TIDPRN PRN dysuria #30 11/27/24 12/26/24 Rx
tabs
lorazepam 0.5 mg tablet 0.5 mg PO Q8HPRN PRN Anxiety 12/26/24 12/26/24 History
Review of Systems
-
History Source: Patient and Other (and chart)
All other systems: Negative unless noted
Respiratory: Trouble Breathing
: Dysuria
Physical Exam
Vital Signs
Temp Pulse Resp BP Pulse Ox
97.7 F 61 20 114/57 100
12/26/24 07:50 12/26/24 07:50 12/26/24 07:50 12/26/24 07:50 12/26/24 07:50
Lab Results
12/26/24 07:09
12/26/24 07:09
Troponin I Cancelled 12/26/24 07:09
Kch-[id number] Pept 3850 pg/ml 12/25/24 23:52
Physical Exam
General: Well Developed and No Apparent Distress
HEENT: Normocephalic and Anicteric
Respiratory: Other (on O2 by NC, diminished to bases )
Cardiac: Regular Rhythm
Musculoskeletal: Edema (mild BLE edema)
Skin: Warm and Dry
Neuro: Awake, Alert and Other (forgetful)
Psych: Calm
Impression / Plan
-
Dzkxs-[id number]-hlnxadf HFpEF:
-weight up, LE edema noted, BNP is up and CXR suggestive CHF
-Echo 11/11/24: LV ejection fraction is 65-70%. Wall motion is consistent with conduction abnormality. Enlarged right ventricular size. Mildly reduced right ventricular systolic function. Severely dilated left atrium. Severely dilated left atrium.
Aortic sclerosis without stenosis. Mild to moderate tricuspid regurgitation. Estimated pulmonary artery pressure of 55-60 mmHg.
-op Lasix 20 mg daily
-agree with IV Lasix, which requires intensive monitoring
-no SGLT2I with current urinary issues
-wean O2 as tolerated
Dysuria:
-w/u and management per primary team
-received ABX
Bradycardia s/p PPM:
-site appears well healing without any redness, drainage, swelling- follow-up in our office/device clinic
PAF:
-stable in SR
-on Eliquis for DVT's, of note was not previously on Eliquis for AFIB due to falls
DVT's:
-on Eliquis
Orthostatic hypotension:
-on midodrine
-monitor for symptoms with diuresis
Data Reviewed
-
EKG: Tracing Personally Visualized and interpreted (AP, RBBB)
Radiology: Report Reviewed by me (CXR: Interstitial pulmonary edema with moderate bilateral pleural effusions.)
Medical Tests (Nuc Med, Echo etc): Report Reviewed by me (echo as noted)
Labs: Labs Reviewed by me
[2024-12-26] MEDS: LASIX 20 MG IV ×2 (08:34→16:00)
[2024-12-26] MEDS: PROTONIX 20 MG PO (08:35)
[2024-12-26] MEDS: DELTASONE 2.5 MG PO (08:35)
[2024-12-26] MEDS: ELIQUIS 2.5 MG PO ×2 (08:35→20:25)
[2024-12-26] MEDS: LOW STRENGTH ASPIRIN 81 MG PO (08:36)
--- NOTE | 2024-12-26 10:38 | WOUNDNOTE ---
[facility] RN note: Patient admitted with CHF. Patient resides at [facility].
See H&P for complete history.
PMH: a fib (Eliquis), CKD3, PMR (prednisone), CAD, [place], orthostatic HOTN, pulmonary HTN, cognitive deficit, anxiety, dysphagia, chronic ambulation dysfunction, L hip replacement, pacer.
Wound Location and type/assessment: Patient admitted with: Sacral/buttocks stage 2 pressure injuries. 2 blanchable red areas on her lower back from lying on her heart monitor (which was removed).
Appetite: fair.
Pressure redistribution devices in place: Advanta with Accumax. Patient cannot turned self in bed. Pillow to elevate heels.
Plan: Sacral shaped silicone border foam applied to sacrum. Silicone border foam applied to lower back. Static air mattress overlay applied and patient turned to R semi side lying position with help from PCT Hardin. Heels off bed with pillow.
Will confirm orders with Dr. Asif and updated RN Deo.
Care plan to be updated and will follow as needed.
Note to case management of equipment requested for discharge: Hospital bed with air mattress if not already in place.
Recommend follow up with wound health care administrator or at wound care center upon discharge.
[2024-12-26] MEDS: TYLENOL 650 MG PO (10:41)
--- NOTE | 2024-12-26 13:20 | WOUNDNOTE ---
[facility] RN note: Chu Batista re: recommend a hospital bed with an air mattress if not already in place at SNF. Patient has sacral/buttocks stage 2 pressure injury.
[2024-12-27] VITALS (8 sets, daily range): BP systolic 97–125; BP diastolic 54–67; BMI 24.5
[2024-12-27] MEDS: SYNTHROID 100 MCG PO (05:03)
[2024-12-27 08:14] LABS: Hematocrit 39.2 % (37.0-47.0); Hemoglobin 13.0 g/dL (12.0-16.0); Mean Corp Hgb Conc. 33.2 g/dL (33.0-37.0); Mean Corpuscular Volume 89.5 fL (81.0-99.0); Platelet Count 217 10^3/uL (130-400); Red Cell Dist. Width 14.9 % (11.5-14.5)
[2024-12-27] MEDS: DELTASONE 2.5 MG PO (08:32)
[2024-12-27] MEDS: PROTONIX 20 MG PO (08:32)
[2024-12-27] MEDS: ELIQUIS 2.5 MG PO ×2 (08:32→21:18)
[2024-12-27] MEDS: LASIX 20 MG IV ×2 (08:32→16:25)
[2024-12-27] MEDS: LOW STRENGTH ASPIRIN 81 MG PO (08:32)
[2024-12-27 08:45] LABS: Blood Urea Nitrogen 44 mg/dl (7-17); Calcium 7.8 mg/dl (8.4-10.2); Carbon Dioxide 27 mmol/L (22-30); Chloride 104 mmol/L (98-107); Estimated Creatinine Clearance 28 ml/min; Glucose 83 mg/dl (70-99); Potassium 4.2 mmol/L (3.5-5.1); Sodium 139 mmol/L (135-145); eGFR 48.33
--- NOTE | 2024-12-27 12:03 | W.PN.HOSP.TC ---
Today's Communication/Plan
-
Continue IV lasix
Assessment / Plan
Assessment / Plan
Impression:
Patient is an 89y F with PMH significant for A-Fib, CKD and PMR who presents to ED from local [place] for evaluation of dysuria and hypoxemia. History obtained from patient and [place] record / reports. Patient complains primarily of burning on
urination. She denies any burning independent of urination. No flank pain or abdominal pain. Note that she has been on Pyridium PRN dysuria since the end of November per [place] JUL.
The evening of admisison, patient was noted to be hypoxemic with SpO2 measured 80-85%. She is not chronically on O2. She was sent to the ED for further evaluation and treatment.
Patient denies any chest pain or dyspnea.
She denies any other current complaints.
Admitted and treated for acute diastolic CHF exacerbation.
Seen by cardiology
Started on IV Lasix
Assessment/plan:
Acute on chronic diastolic CHF with Acute Hypoxemic respiratory Failure secondary CHF
Bilateral Pleural Effusions - likely secondary to CHF
Patient presented with shortness of breath.
BNP level is elevated.
Continue IV diuresing in form of Lasix 20 mg twice daily
Daily weight.
Strict I's and O's.
Consulted cardiology.
Most recent echo in November with EF 60-70% and mild - moderate TR.
Dysuria
- Unclear etiology. UA with RBCs but no nitrates, WBCs, etc.
- Does not appear c/w acute infection despite reported symptoms.
- Would observe off of abx for now.
- ? chronic complaint with Pyridium noted on JUL since November.
- Consider trial of gabapentin, amitriptyline, etc for symptom control.
Paroxysmal Atrial Fibrillation
s/p PPM Placement
- Stable. Continue Eliquis for stroke risk reduction.
CKD III
- Stable. SCr with range from 1.1 - 1.6 over the past several hospital stays.
- Monitor for any changes with diuresis.
Orthostatic Hypotension
- Continue midodrine as noted above.
Polymyalgia Rheumatica
- Stable on chronic prednisone. Continue current dose for now.
CODE STATUS: Full code
DVT prophylaxis: Eliquis
Diet: Regular diet
Disposition: Continue IV Lasix.
Total time spent on today's encounter was 65 minutes which included time spent in counseling the patient/family regarding diagnosis and treatment plan as listed above, goals of care, and symptom management. Case was discussed with nursing staff,
specialists, and care coordinators/case management. All labs and imaging personally reviewed by me. Remainder the time spent in detailed review of previous records, lab data, imaging, and other medical provider documentation.
Anticipated Discharge: 24 - 48 hours
Subjective/Interval History
-
Date of Service: December 27, 2024
Patient seen and examined at bedside, denies any chest pain , shortness of breath Improved, but feels congestion, also complaining of vague abdominal pain, no nausea, no vomiting, no diarrhea or constipation.
Objective Data
-
Labs:
Laboratory Results
12/27/24
07:40
WBC 5.8
Hgb 13.0
Hct 39.2
Plt Count 217
Sodium 139
Potassium 4.2
Chloride 104
Carbon Dioxide 27
BUN 44 H
Creatinine 1.1 H
Glucose 83
Calcium 7.8 L
Vital Signs:
Vital Signs
Temp Pulse Resp BP Pulse Ox
98 F 114 18 97/67 97
12/27/24 11:00 12/27/24 11:00 12/27/24 11:00 12/27/24 11:00 12/27/24 11:00
I&O
12/26/24 12/27/24 12/28/24
06:59 06:59 06:59
Intake Total 0 / 0 720 / 720
Output Total 400 / 400
Balance -400 / -400 720 / 720
Physical Exam
-
General: Well Developed, Well Nourished, No Apparent Distress and Comfortable
HEENT: Normocephalic, Atraumatic, Moist Mucous Membranes, No Ptosis, PERRLA and Nose Appears Normal
Respiratory: Rales, Rhonchi and Non Labored Respirations
Cardiac: Regular Rhythm and S1/S2
Breast: Deferred by me
GI: Soft, Nontender, Nondistended and Normal Bowel Sounds
Genito-urinary: No Costovertebral Tender
Musculoskeletal: No Clubbing, No Cyanosis, Edema, Right Lower Extrem and Edema, Left Lower Extrem
Skin: Warm
Neuro: Awake, Alert, Oriented, AO x 3 and No Motor Deficits
Psych: Calm
[2024-12-27] MEDS: MUCINEX 600 MG PO ×2 (13:35→21:18)
--- NOTE | 2024-12-27 15:54 | W.PN.CD ---
Today's Communication / Plan
-
Continue IV diuresis
May be ready for p.o. tomorrow
Impression / Plan
-
89-year-old female with past medical history of HFpEF, A-fib/A-flutter (on AC), DVT, PPM, orthostatic hypotension on midodrine who presents with hypoxia. Cardiology consulted for CHF.
Tppem-rl-cdzkhfo HFpEF:
-Severe exacerbation requiring IV diuresis and close monitoring of labs and telemetry
-weight up, LE edema noted, BNP is up and CXR suggestive CHF
-Echo 11/11/24: LV ejection fraction is 65-70%. Wall motion is consistent with conduction abnormality. Enlarged right ventricular size. Mildly reduced right ventricular systolic function. Severely dilated left atrium. Severely dilated left atrium.
Aortic sclerosis without stenosis. Mild to moderate tricuspid regurgitation. Estimated pulmonary artery pressure of 55-60 mmHg.
-op Lasix 20 mg daily
-agree with IV Lasix, which requires intensive monitoring
-no SGLT2I with current urinary issues. No MRA for borderline BPs
-wean O2 as tolerated
Dysuria:
-w/u and management per primary team
-received ABX
Bradycardia s/p PPM:
-site appears well healing without any redness, drainage, swelling- follow-up in our office/device clinic
PAF:
-stable in SR
-on Eliquis for DVT's, of note was not previously on Eliquis for AFIB due to falls
DVT's:
-on Eliquis
Orthostatic hypotension:
-on midodrine
-monitor for symptoms with diuresis
Subjective: Had worsening dyspnea this morning but it has since resolved. Lower extremity edema is improving.
Physical Exam
Vital Signs/Labs
Vital Signs
Temp Pulse Resp BP Pulse Ox
98 F 114 18 97/67 97
12/27/24 11:00 12/27/24 11:00 12/27/24 11:00 12/27/24 11:00 12/27/24 11:00
12/26/24 12/27/24 12/28/24
06:59 06:59 06:59
Actual Weight 130 lb 2 oz 134 lb 0.657 oz
12/27/24 07:40
12/27/24 07:40
12/25/24
23:52
Yce-T-Yeinxndghkb Pept 3850
LAB Results
12/25/24 12/26/24 12/26/24
23:52 07:09 07:27
Troponin I < 0.012 Cancelled Cancelled
12/26/24 12/26/24
11:13 17:13
Troponin I Cancelled Cancelled
Physical Exam
Constitutional: No acute distress and Comfortable
Cardiovascular: Rhythm & rate is regular, Pedal edema present, S1S2 is normal and Murmur/rub/gallop absent
Respiratory: Respiratory effort normal and Crackles Present
Data Reviewed
-
Date of Service: December 27, 2024
Medical Decision Making: Reviewed Test Results, Independent Historian Assessment, Test Interpretation and Review of Case with other Provider
EKG: Tracing Personally Visualized and interpreted
Echo: Report Reviewed by me
X-Ray/CT/US/MRI/NUC/PET: Image Personally Visualized and interpreted
Labs: Labs Reviewed by me
[2024-12-27] MEDS: ZOFRAN 4 MG IV (16:25)
--- NOTE | 2024-12-27 17:01 | CM ---
Attempted initial assessment twice this shift. Patient was sleeping soundly then eating lunch. Will attempt again.
[2024-12-27 22:18] LABS: Troponin I < 0.012 ng/ml
--- NOTE | 2024-12-27 23:22 | W.PN.UPDATE ---
Update Note
Progress Note Update
pt c/o chest pain. pointing to epigastric area. Cannot describe pain.
On exam pt is quite anxious. O2 placed for comfort. EKG without any changes of signs on ischemia. Trop ordered and neg. Vitals signs WNL. Chest is tender to palpation. Abd slightly round and softly distended. Pt stated voiding well. Had RN bladder
scan - only 125ml. Denies abd pain. CT from a few days ago showed fecal impaction--but pt tells me she has been having freq BM. Not sure if this is reliable info. May need to add bowel regime.
Will add abd xray for am to eval bowels.
[2024-12-27] MEDS: PROTONIX IV 40 MG IV (23:33)
[2024-12-27] MEDS: NSS (PRESERVATIVE FREE) 10 ML IV (23:33)
[2024-12-28 03:29] VITALS: BP 91/57
--- NOTE | 2024-12-28 03:46 | PTCARENOTE ---
Pt anxious at times, hx dementia.Pt c/o chest pain ,non radiating to arms,back,neck.Pt was placed on oxygen at 2lit for comfort.NETWORK PROFESSIONAL accreditation coordinator made aware of it.CORRECTIONS CASEWORKER saw pt at bedside. EKG done on pt,troponin send. Pt incontinent of urine,bladder scan
was done 128ml noted.Plan of care continued on pt.No new orders at this time.
[2024-12-28 06:00] VITALS: BMI 24.0
[2024-12-28 07:05] VITALS: BP 114/54
[2024-12-28] MEDS: SYNTHROID 100 MCG PO (07:25)
[2024-12-28] MEDS: DELTASONE 2.5 MG PO (08:30)
[2024-12-28] MEDS: LOW STRENGTH ASPIRIN 81 MG PO (08:31)
[2024-12-28] MEDS: PROTONIX 20 MG PO (08:31)
[2024-12-28] MEDS: LASIX 20 MG IV ×2 (08:31→16:35)
[2024-12-28] MEDS: ELIQUIS 2.5 MG PO ×2 (08:31→21:51)
[2024-12-28] MEDS: MUCINEX 600 MG PO ×2 (08:31→21:51)
[2024-12-28 11:04] VITALS: BP 101/45
--- NOTE | 2024-12-28 11:42 | W.PN.HOSP.TC ---
Today's Communication/Plan
-
Continue IV Lasix.
IR consult for thoracentesis
Assessment / Plan
Assessment / Plan
Impression:
Patient is an 89y F with PMH significant for A-Fib, CKD and PMR who presents to ED from local [place] for evaluation of dysuria and hypoxemia. History obtained from patient and [place] record / reports. Patient complains primarily of burning on
urination. She denies any burning independent of urination. No flank pain or abdominal pain. Note that she has been on Pyridium PRN dysuria since the end of November per [place] JUL.
The evening of admisison, patient was noted to be hypoxemic with SpO2 measured 80-85%. She is not chronically on O2. She was sent to the ED for further evaluation and treatment.
Patient denies any chest pain or dyspnea.
She denies any other current complaints.
Admitted and treated for acute diastolic CHF exacerbation.
Seen by cardiology
Started on IV Lasix
12/28
Patient was complaining of shortness of breath which improved and chest pain/epigastric pain which now improved.
X-ray abdomen shows large amount of fecal material in the rectum.
Troponin negative.
X-ray shows moderate size right sided pleural effusion, IR consulted
Assessment/plan:
Acute on chronic diastolic CHF with Acute Hypoxemic respiratory Failure secondary CHF
Bilateral Pleural Effusions - likely secondary to CHF
Patient presented with shortness of breath.
BNP level is elevated.
Continue IV diuresing in form of Lasix 20 mg twice daily
Daily weight.
Strict I's and O's.
Consulted cardiology.
Most recent echo in November with EF 60-70% and mild - moderate TR.
12/28
IR consult for right-sided pleural effusion.
Constipation with overflow diarrhea
CT abdomen and again abdominal x-ray shows large fecal material in the rectum but patient has frequent bowel movement.
Possible around the fecal material
Will order suppository to be used if needed
Dysuria
- Unclear etiology. UA with RBCs but no nitrates, WBCs, etc.
- Does not appear c/w acute infection despite reported symptoms.
- Would observe off of abx for now.
- ? chronic complaint with Pyridium noted on JUL since November.
- Consider trial of gabapentin, amitriptyline, etc for symptom control.
Paroxysmal Atrial Fibrillation
s/p PPM Placement
- Stable. Continue Eliquis for stroke risk reduction.
CKD III
- Stable. SCr with range from 1.1 - 1.6 over the past several hospital stays.
- Monitor for any changes with diuresis.
Orthostatic Hypotension
- Continue midodrine as noted above.
Polymyalgia Rheumatica
- Stable on chronic prednisone. Continue current dose for now.
CODE STATUS: Full code
DVT prophylaxis: Eliquis
Diet: Regular diet
Disposition: Continue IV Lasix.
IR consult for thoracentesis
Total time spent on today's encounter was 65 minutes which included time spent in counseling the patient/family regarding diagnosis and treatment plan as listed above, goals of care, and symptom management. Case was discussed with nursing staff,
specialists, and care coordinators/case management. All labs and imaging personally reviewed by me. Remainder the time spent in detailed review of previous records, lab data, imaging, and other medical provider documentation.
Anticipated Discharge: 24 - 48 hours
Subjective/Interval History
-
Date of Service: December 28, 2024
Patient had episode of chest pain/epigastric pain, last night, negative troponin, x-ray abdomen shows large amount of fecal material, she is feeling better now, no chest pain or shortness of breath.
Objective Data
-
Labs:
Laboratory Results
12/28/24
06:00
WBC Pending
Hgb Pending
Hct Pending
Plt Count Pending
Sodium Pending
Potassium Pending
Chloride Pending
Carbon Dioxide Pending
BUN Pending
Creatinine Pending
Glucose Pending
Calcium Pending
Vital Signs:
Vital Signs
Temp Pulse Resp BP Pulse Ox
97.3 F 60 16 114/54 95
12/28/24 03:29 12/28/24 08:30 12/28/24 07:05 12/28/24 08:30 12/28/24 08:35
I&O
12/27/24 12/28/24 12/29/24
06:59 06:59 06:59
Intake Total 720 / 720 180 / 180
Balance 720 / 720 180 / 180
Physical Exam
-
General: Well Developed, Well Nourished, No Apparent Distress and Comfortable
HEENT: Normocephalic, Atraumatic, Moist Mucous Membranes, No Ptosis, PERRLA and Nose Appears Normal
Respiratory: Rales, Rhonchi and Non Labored Respirations
Cardiac: Regular Rhythm and S1/S2
Breast: Deferred by me
GI: Soft, Nontender, Nondistended and Normal Bowel Sounds
Genito-urinary: No Costovertebral Tender
Musculoskeletal: No Clubbing, No Cyanosis, Edema, Right Lower Extrem and Edema, Left Lower Extrem
Skin: Warm
Neuro: Awake, Alert, Oriented, AO x 3 and No Motor Deficits
Psych: Calm
--- NOTE | 2024-12-28 12:02 | PTCARENOTE ---
Pt. updated on abd xray results and that the doctor order a suppository for fecal impaction. Pt. refused suppository. Pt. educated on importance of taking medication and risks of constipation. Pt. still declined suppository, Dr. Asif made aware.
[2024-12-28 13:56] LABS: Hematocrit 39.6 % (37.0-47.0); Hemoglobin 12.9 g/dL (12.0-16.0); Mean Corp Hgb Conc. 32.6 g/dL (33.0-37.0); Mean Corpuscular Volume 91.0 fL (81.0-99.0); Platelet Count 214 10^3/uL (130-400); Red Cell Dist. Width 14.7 % (11.5-14.5)
[2024-12-28 14:20] LABS: Blood Urea Nitrogen 45 mg/dl (7-17); Calcium 7.7 mg/dl (8.4-10.2); Carbon Dioxide 28 mmol/L (22-30); Chloride 102 mmol/L (98-107); Estimated Creatinine Clearance 26 ml/min; Glucose 104 mg/dl (70-99); Potassium 4.1 mmol/L (3.5-5.1); Sodium 138 mmol/L (135-145); eGFR 43.54
--- NOTE | 2024-12-28 14:24 | CM ---
Initial assessment completed with patient who lives at [facility] in a 2nd floor suite in elevator building, no steps. 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 She does receive assistance with bathing. Has a
pacemaker. Does have a HC POA. No psychiatric hospitalizations. No VA benefits. PCP is Dr. Todd Sood. [facility]. Discharge POC: Anticipate home with no needs. Awaiting therapy eval.
[2024-12-28 15:14] VITALS: BP 82/63
--- NOTE | 2024-12-28 16:03 | W.PN.CD ---
Today's Communication / Plan
-
Continue IV Lasix
May be ready to transition to p.o. tomorrow
Impression / Plan
-
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 Cardiology consulted for CHF.
Box Feeder: Renata
Qdeng-nf-sxmobvs HFpEF:
-Severe exacerbation requiring IV diuresis and close monitoring of labs and telemetry
-weight up, LE edema noted, BNP is up and CXR suggestive CHF
-Echo 11/11/24: LV ejection fraction is 65-70%. Wall motion is consistent with conduction abnormality. Enlarged right ventricular size. Mildly reduced right ventricular systolic function. Severely dilated left atrium. Severely dilated left atrium.
Aortic sclerosis without stenosis. Mild to moderate tricuspid regurgitation. Estimated pulmonary artery pressure of 55-60 mmHg.
-op Lasix 20 mg daily
-agree with IV Lasix, which requires intensive monitoring. May be ready for PO tomorrow.
-no SGLT2I with current urinary issues. No MRA for borderline BPs
-wean O2 as tolerated
Dysuria:
-w/u and management per primary team
-received ABX
Bradycardia s/p PPM:
-site appears well healing without any redness, drainage, swelling- follow-up in our office/device clinic
PAF:
-intermittent runs of flutter vs SVT on telemetry
-on Eliquis for DVT's, of note was not previously on Eliquis for AFIB due to falls
DVT's:
-on Eliquis
Orthostatic hypotension:
-on midodrine
-monitor for symptoms with diuresis
Subjective: Chest pain overnight. Resolved on its own. Trop negative. Feels fine now.
Physical Exam
Vital Signs/Labs
Vital Signs
Temp Pulse Resp BP Pulse Ox
97.3 F 61 16 101/45 100
12/28/24 03:29 12/28/24 11:04 12/28/24 11:04 12/28/24 11:04 12/28/24 11:04
12/27/24 12/28/24 12/29/24
06:59 06:59 06:59
Actual Weight 134 lb 0.657 oz 130 lb 15.273 oz
12/28/24 13:31
12/28/24 13:31
12/25/24
23:52
Yxu-J-Cohkfpsmcpw Pept 3850
LAB Results
12/25/24 12/26/24 12/26/24
23:52 07:09 07:27
Troponin I < 0.012 Cancelled Cancelled
12/26/24 12/26/24 12/27/24
11:13 17:13 21:48
Troponin I Cancelled Cancelled < 0.012
Physical Exam
Constitutional: No acute distress and Comfortable
Cardiovascular: Rhythm & rate is regular, Pedal edema present, S1S2 is normal and Murmur/rub/gallop absent
Respiratory: Respiratory effort normal and Crackles Present
Data Reviewed
-
Date of Service: December 28, 2024
Medical Decision Making: Reviewed Test Results, Independent Historian Assessment, Test Interpretation and Review of Case with other Provider
EKG: Tracing Personally Visualized and interpreted
Echo: Report Reviewed by me
X-Ray/CT/US/MRI/NUC/PET: Report Reviewed by me
Labs: Labs Reviewed by me
[2024-12-28] MEDS: COLACE 100 MG PO (16:35)
[2024-12-28 19:46] VITALS: BP 109/56
[2024-12-28 23:06] VITALS: BP 117/56
[2024-12-29] VITALS (8 sets, daily range): BP systolic 63–120; BP diastolic 56–62; BMI 24.2
[2024-12-29] MEDS: SYNTHROID 100 MCG PO (03:19)
[2024-12-29] MEDS: ZOFRAN 4 MG IV (07:23)
[2024-12-29] MEDS: ELIQUIS 2.5 MG PO ×2 (09:39→21:15)
[2024-12-29] MEDS: LOW STRENGTH ASPIRIN 81 MG PO (09:39)
[2024-12-29] MEDS: PROTONIX 20 MG PO (09:39)
[2024-12-29] MEDS: MUCINEX 600 MG PO ×2 (09:39→21:15)
[2024-12-29] MEDS: DELTASONE 2.5 MG PO (09:39)
[2024-12-29] MEDS: LASIX IV ×2 (09:39→09:50)
[2024-12-29] MEDS: TYLENOL 650 MG PO (09:42)
--- NOTE | 2024-12-29 09:52 | W.PN.CD ---
Today's Communication / Plan
-
increase lasix to 40mg IV bid
weight was 55kg last month
Impression / Plan
-
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 Cardiology consulted for CHF.
Cocktail Waitress: Renata
Zyygd-ni-qtdjnji HFpEF:
-Severe exacerbation requiring IV diuresis and close monitoring of labs and telemetry
-weight up, LE edema noted, BNP is up and CXR suggestive CHF: weight was as low as 55kg last month
-Echo 11/11/24: LV ejection fraction is 65-70%. Wall motion is consistent with conduction abnormality. Enlarged right ventricular size. Mildly reduced right ventricular systolic function. Severely dilated left atrium. Severely dilated left atrium.
Aortic sclerosis without stenosis. Mild to moderate tricuspid regurgitation. Estimated pulmonary artery pressure of 55-60 mmHg.
-op Lasix 20 mg daily
-agree with IV Lasix, which requires intensive monitoring. Increase to lasix 40mg IV bid.
-no SGLT2I with current urinary issues. No MRA for borderline BPs
-wean O2 as tolerated
Bradycardia s/p PPM:
-stable
Parox AFib:
-intermittent runs of flutter vs SVT on telemetry
-on Eliquis for DVT's, of note was not previously on Eliquis for AFIB due to falls
DVT's:
-on Eliquis
Orthostatic hypotension:
-on midodrine
-monitor for symptoms with diuresis
Physical Exam
Vital Signs/Labs
Vital Signs
Temp Pulse Resp BP Pulse Ox
98.1 F 61 18 120/62 97
12/29/24 07:30 12/29/24 07:30 12/29/24 07:30 12/29/24 07:30 12/29/24 07:30
12/28/24 12/29/24 12/30/24
06:59 06:59 06:59
Actual Weight 59.4 kg 60.073 kg
12/28/24 13:31
12/28/24 13:31
12/25/24
23:52
Xnu-H-Happuyckayl Pept 3850
LAB Results
12/26/24 12/27/24
17:13 21:48
Troponin I Cancelled < 0.012
Physical Exam
Constitutional: No acute distress
EENT: Moist mucous membranes
Cardiovascular: Systolic murmur absent, Rhythm/rate is irregular, Pedal edema present and JVD present
Respiratory: Respiratory effort normal and Lungs clear to auscul.
Neuro/Psych: Alert
Data Reviewed
-
Date of Service: December 29, 2024
EKG: Other (Tele: SR, 70s, brief A fib, occasional A pacing)
Labs: Labs Reviewed by me
[2024-12-29] MEDS: LASIX 40 MG IV ×2 (10:23→17:29)
--- NOTE | 2024-12-29 12:45 | W.PN.HOSP.TC ---
Addendum entered and electronically signed by Richard Wilkerson DO 12/29/24 14:53:
Yes, stage 2 pressure injury, bilateral buttock, POA
Original Note:
Today's Communication/Plan
-
Assessment / Plan
Assessment / Plan
General: No Apparent Distress, appears uncomfortable due to nausea
HEENT: NormoCephalic, Moist mucous membranes, Atraumatic
Respiratory: Clear and Non Labored Respirations
Cardiac: S1/S2 and Regular Rhythm; No Rub or Gallop
GI: Soft, Non Tender, Non Distended and Normal Bowel Sounds
Musculoskeletal: Significant bilateral lower extremity edema, no deformity
: NO Gordon
Neuro: Awake, Alert, Nonfocal/grossly intact
Psych: Calm and cooperative
Impression:
Patient is an 89y F with PMH significant for A-Fib, CKD and PMR who presents to ED from local [place] for evaluation of dysuria and hypoxemia. History obtained from patient and [place] record / reports. Patient complains primarily of burning on
urination. She denies any burning independent of urination. No flank pain or abdominal pain. Note that she has been on Pyridium PRN dysuria since the end of November per [place] MAR.
The evening of admission, patient was noted to be hypoxemic with SpO2 measured 80-85%. She is not chronically on O2. She was sent to the ED for further evaluation and treatment.
Patient denies any chest pain or dyspnea.
She denies any other current complaints.
Admitted and treated for acute diastolic CHF exacerbation.
Seen by cardiology
Started on IV Lasix
12/28
Patient was complaining of shortness of breath which improved and chest pain/epigastric pain which now improved.
X-ray abdomen shows large amount of fecal material in the rectum.
Troponin negative.
X-ray shows moderate size right sided pleural effusion, IR consulted
Assessment/plan:
Acute on chronic diastolic CHF with Acute Hypoxemic respiratory Failure secondary CHF
- Bilateral Pleural Effusions - likely secondary to CHF
- Patient presented with shortness of breath.
- Increased Lasix to 40 mg IV twice daily today per cardiology recommendations
- Monitor I's and O's and Daily weights, previously weight 55 kg last month
- Appreciate cardiology guidance
- Plan for IR right thoracentesis today
Constipation with overflow diarrhea
CT abdomen and again abdominal x-ray shows large fecal material in the rectum but patient has frequent bowel movement.
Possible around the fecal material
Will order suppository to be used if needed
Dysuria
- Unclear etiology. UA with RBCs but no nitrates, WBCs, etc.
- Does not appear c/w acute infection despite reported symptoms.
- Would observe off of abx for now.
- chronic complaint with Pyridium noted on JUL since November.
- Consider trial of gabapentin, amitriptyline, etc for symptom control.
Paroxysmal Atrial Fibrillation
s/p PPM Placement
- Stable. Continue Eliquis for stroke risk reduction.
CKD III
- Stable. SCr with range from 1.1 - 1.6 over the past several hospital stays.
- Monitor for any changes with diuresis.
Orthostatic Hypotension
- Continue midodrine as noted above.
Polymyalgia Rheumatica
- Stable on chronic prednisone. Continue current dose for now.
CODE STATUS: Full code
DVT prophylaxis: Eliquis
Diet: Regular diet
Disposition: Continue IV Lasix.
IR consult for thoracentesis
Total time spent on today's encounter was 54 minutes which included time spent in counseling the patient/family regarding diagnosis and treatment plan as listed above, goals of care, and symptom management. Case was discussed with nursing staff,
specialists, and care coordinators/case management. All labs and imaging personally reviewed by me. Remainder the time spent in detailed review of previous records, lab data, imaging, and other medical provider documentation.
Anticipated Discharge: > 48 hours
Subjective/Interval History
-
Date of Service: December 29, 2024
Patient was seen and examined at bedside this morning. Reports some mild nausea.
Objective Data
-
Vital Signs:
Vital Signs
Temp Pulse Resp BP Pulse Ox
97.3 F 61 18 114/61 95
12/29/24 11:15 12/29/24 11:15 12/29/24 11:15 12/29/24 11:15 12/29/24 11:15
I&O
12/28/24 12/29/24 12/30/24
06:59 06:59 06:59
Intake Total 180 / 180 240 / 240
Balance 180 / 180 240 / 240
Review of Systems
-
History Source: Patient
All other systems: Reviewed and negative
Abdomen/GI: Reports Nausea
Musculoskeletal: Reports Edema
Physical Exam
-
General: No Apparent Distress
--- NOTE | 2024-12-29 14:26 | PN.CDI ---
CDI
- -
CDI:
Physician Documentation Request
Admit Date: 12/26/24 04:06
Dear Doctor Rock,
Please review the following and provide your response in the progress notes.
Clinical Indicators:
12/26/24 10:38 - Wound Note
Wound Location and type/assessment:
#...admitted with: Sacral/buttocks stage 2 pressure injuries.
Selected Entries
12/26/24
10:49
Pressure injury stage [Present on admission Bilateral Buttock] Stage 2
Physician documentation of the type and location of wounds is required for compliant documentation. Based on the above clinical findings and your assessment, please provide the following in your progress note:
Yes, stage 2 pressure injury, bilateral buttock, POA
No, stage 2 pressure injury, bilateral buttock
Other(please specify)
Unable to determine
1. Location of the ulcer/wound, including laterality.
2. Type (etiology) of ulcer/wound:
- Diabetic ulcer
- Arterial (ischemic) ulcer
- Pressure (decubitus) ulcer
3. For a pressure ulcer, please also include the stage* of the ulcer:
- Stage 1 - Skin intact, non-blanchable redness
- Stage 2 - Partial thickness loss of dermis, includes intact or open blister
- Stage 3 - Full thickness tissue not including bone, tendon or muscle
- Stage 4 - Full thickness tissue loss, including exposed bone, tendon or muscle
- Unstageable - Full thickness loss in which the base of the ulcer is covered by slough (yellow, ellison, silva, green or brown) and/or eschar (ellison, brown or black) in the wound bed.
- Unable to determine
Use of terms such as suspected, likely, concern for, or probable (associated with a specific diagnosis that is being evaluated, monitored, or treated as if it exists) are acceptable and can be coded in the inpatient setting, when documented at the
time of discharge.
Thank you,
Yoselin Lane RN BSN CCDS
CDI Specialist
Please contact via tiger text
Please use your independent medical judgment in providing your response.
*Source: National Pressure Ulcer Advisory Panel (NPUAP)
[2024-12-29 17:41] LABS: Body Fluid Second Tech DW
[2024-12-30 03:46] VITALS: BP 108/66
[2024-12-30] MEDS: SYNTHROID 100 MCG PO (05:12)
[2024-12-30 06:00] VITALS: BMI 23.5
[2024-12-30 07:20] VITALS: BP 106/57
[2024-12-30 08:42] LABS: Hematocrit 39.3 % (37.0-47.0); Hemoglobin 12.8 g/dL (12.0-16.0); Mean Corp Hgb Conc. 32.6 g/dL (33.0-37.0); Mean Corpuscular Volume 89.7 fL (81.0-99.0); Nucleated Red Blood Cells % 0 %; Platelet Count 244 10^3/uL (130-400); Red Cell Dist. Width 14.9 % (11.5-14.5)
[2024-12-30 09:14] LABS: Blood Urea Nitrogen 52 mg/dl (7-17); Calcium 8.4 mg/dl (8.4-10.2); Carbon Dioxide 24 mmol/L (22-30); Chloride 102 mmol/L (98-107); Estimated Creatinine Clearance 21 ml/min; Glucose 86 mg/dl (70-99); Magnesium 1.9 mg/dl (1.6-2.3); Potassium 4.5 mmol/L (3.5-5.1); Sodium 135 mmol/L (135-145); eGFR 33.31
[2024-12-30] MEDS: LOW STRENGTH ASPIRIN PO (09:43)
[2024-12-30] MEDS: LASIX 40 MG IV (09:43)
[2024-12-30] MEDS: DELTASONE 2.5 MG PO (09:44)
[2024-12-30] MEDS: ELIQUIS 2.5 MG PO ×2 (09:44→20:08)
[2024-12-30] MEDS: MUCINEX 600 MG PO ×2 (09:45→20:08)
[2024-12-30] MEDS: PROTONIX 20 MG PO (09:45)
--- NOTE | 2024-12-30 10:16 | W.PN.CD ---
Today's Communication / Plan
-
BUN/Cr up: will stop IV lasix
transition to torsemide 20mg daily tomorrow
we will arrange for follow up with us
please call us back with additional questions
Impression / Plan
-
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 Cardiology consulted for CHF.
Fire Equipment Inspector Helper: Renata
Yddvj-ez-avljjuk HFpEF:
-improved s/p IV lasix
-weight up, LE edema noted, BNP is up and CXR suggestive CHF: weight was as low as 55kg last month
-Echo 11/11/24: LV ejection fraction is 65-70%. Wall motion is consistent with conduction abnormality. Enlarged right ventricular size. Mildly reduced right ventricular systolic function. Severely dilated left atrium. Severely dilated left atrium.
Aortic sclerosis without stenosis. Mild to moderate tricuspid regurgitation. Estimated pulmonary artery pressure of 55-60 mmHg.
-op Lasix 20 mg daily
-no SGLT2I with current urinary issues. No MRA for borderline BPs
-BUN/Cr up: will stop IV lasix
-transition to torsemide 20mg daily tomorrow
Right pleural effusion
-s/p thora 8.25 for 1200cc
Bradycardia s/p PPM:
-stable
Parox AFib:
-intermittent runs of flutter vs SVT on telemetry
-on Eliquis for DVT's, of note was not previously on Eliquis for AFIB due to falls
DVT's:
-on Eliquis
Orthostatic hypotension:
-on midodrine
-monitor for symptoms with diuresis
Physical Exam
Vital Signs/Labs
Vital Signs
Temp Pulse Resp BP Pulse Ox
97.3 F 60 16 103/60 98
12/30/24 07:20 12/30/24 07:20 12/30/24 07:20 12/30/24 09:44 12/30/24 07:20
12/29/24 12/30/24 12/31/24
06:59 06:59 06:59
Actual Weight 60.073 kg 58.287 kg
12/30/24 08:25
12/30/24 08:25
Magnesium 1.9 mg/dl (1.6-2.3) 12/30/24 08:25
12/25/24
23:52
Apu-G-Eqsdejshybz Pept 3850
LAB Results
12/27/24
21:48
Troponin I < 0.012
Physical Exam
Constitutional: No acute distress
EENT: Moist mucous membranes
Cardiovascular: Pedal edema is absent, JVD pressure is normal, Systolic murmur absent and Rhythm/rate is irregular
Respiratory: Respiratory effort normal and Lungs clear to auscul.
Neuro/Psych: Alert
Data Reviewed
-
Date of Service: December 30, 2024
EKG: Other (Tele: SR, occasional A pacing, brief A fib)
Labs: Labs Reviewed by me
[2024-12-30 11:10] VITALS: BP 102/53
--- NOTE | 2024-12-30 11:12 | W.PN.HOSP.TC ---
Today's Communication/Plan
-
Assessment / Plan
Assessment / Plan
General: No Apparent Distress, comfortable, conversant
HEENT: NormoCephalic, Moist mucous membranes, Atraumatic
Respiratory: Clear and Non Labored Respirations
Cardiac: S1/S2 and Regular Rhythm; No Rub or Gallop
GI: Soft, Non Tender, Non Distended and Normal Bowel Sounds
Musculoskeletal: Significant bilateral lower extremity edema, no deformity
: NO Gordon
Neuro: Awake, Alert, Nonfocal/grossly intact
Psych: Calm and cooperative
Impression:
Patient is an 89y F with PMH significant for A-Fib, CKD and PMR who presents to ED from local [place] for evaluation of dysuria and hypoxemia. History obtained from patient and [place] record / reports. Patient complains primarily of burning on
urination. She denies any burning independent of urination. No flank pain or abdominal pain. Note that she has been on Pyridium PRN dysuria since the end of November per [place] JUL.
The evening of admission, patient was noted to be hypoxemic with SpO2 measured 80-85%. She is not chronically on O2. She was sent to the ED for further evaluation and treatment.
Patient denies any chest pain or dyspnea.
She denies any other current complaints.
Admitted and treated for acute diastolic CHF exacerbation.
Seen by cardiology
Started on IV Lasix
12/28
Patient was complaining of shortness of breath which improved and chest pain/epigastric pain which now improved.
X-ray abdomen shows large amount of fecal material in the rectum.
Troponin negative.
X-ray shows moderate size right sided pleural effusion, IR consulted
Assessment/plan:
Acute on chronic diastolic CHF with Acute Hypoxemic respiratory Failure secondary CHF
- Bilateral Pleural Effusions - likely secondary to CHF
- Patient presented with shortness of breath.
- Have been diuresing with Lasix to 40 mg IV twice daily for the last 24 hours
- Appears to be approaching euvolemia, will transition to oral torsemide tomorrow 12/31
- Appreciate cardiology guidance, have signed off, arranging outpatient follow-up
- Status post right thoracentesis with IR yesterday 12/29 with 1.2 L removed, patient is breathing much more comfortably today and saturating appropriately on room air
Constipation with overflow diarrhea
CT abdomen and again abdominal x-ray shows large fecal material in the rectum but patient has frequent bowel movement.
Possible around the fecal material
Will order suppository to be used if needed
Dysuria
- Unclear etiology. UA with RBCs but no nitrates, WBCs, etc.
- Does not appear c/w acute infection despite reported symptoms.
- Would observe off of abx for now.
- chronic complaint with Pyridium noted on JUL since November.
- Consider trial of gabapentin, amitriptyline, etc for symptom control.
Paroxysmal Atrial Fibrillation
s/p PPM Placement
- Stable. Continue Eliquis for stroke risk reduction.
CKD III
- Stable. SCr with range from 1.1 - 1.6 over the past several hospital stays, currently within normal range at 1.5 on labs today.
- Monitor for any changes with diuresis.
Orthostatic Hypotension
- Continue midodrine as noted above.
Polymyalgia Rheumatica
- Stable on chronic prednisone. Continue current dose for now.
CODE STATUS: Full code
DVT prophylaxis: Eliquis
Diet: Regular diet
Disposition: Continue IV Lasix.
IR consult for thoracentesis
Total time spent on today's encounter was 53 minutes which included time spent in counseling the patient/family regarding diagnosis and treatment plan as listed above, goals of care, and symptom management. Case was discussed with nursing staff,
specialists, and care coordinators/case management. All labs and imaging personally reviewed by me. Remainder the time spent in detailed review of previous records, lab data, imaging, and other medical provider documentation.
Anticipated Discharge: 24 - 48 hours
Subjective/Interval History
-
Date of Service: December 30, 2024
Patient was seen and examined at bedside this morning. Breathing more comfortably today after right thoracentesis yesterday with 1.2 L removed. Continues to diurese well. Will transition to oral diuretic tomorrow.
Objective Data
-
Labs:
Laboratory Results
12/30/24
08:25
WBC 6.3
Hgb 12.8
Hct 39.3
Plt Count 244
Sodium 135
Potassium 4.5
Chloride 102
Carbon Dioxide 24
BUN 52 H
Creatinine 1.5 H
Glucose 86
Calcium 8.4
Vital Signs:
Vital Signs
Temp Pulse Resp BP Pulse Ox
97.3 F 60 16 103/60 98
12/30/24 07:20 12/30/24 07:20 12/30/24 07:20 12/30/24 09:44 12/30/24 07:20
I&O
12/29/24 12/30/24 12/31/24
06:59 06:59 06:59
Intake Total 240 / 240 240 / 240
Balance 240 / 240 240 / 240
Review of Systems
-
History Source: Patient
All other systems: Reviewed and negative
Physical Exam
-
General: No Apparent Distress
[2024-12-30 15:20] VITALS: BP 106/54
[2024-12-30 19:33] VITALS: BP 110/51
[2024-12-30] MEDS: TYLENOL 650 MG PO (22:54)
[2024-12-30] MEDS: PREPARATION H MAX STRENGTH PAIN RELIEF CREAM 1 APPLIC RECTAL (22:55)
[2024-12-30 23:37] VITALS: BP 106/60
[2024-12-30] MEDS: ATIVAN 0.5 MG PO (23:53)
[2024-12-31] VITALS (7 sets, daily range): BP systolic 95–111; BP diastolic 46–59; BMI 23.5
[2024-12-31] MEDS: ZOFRAN 4 MG IV (01:03)
--- NOTE | 2024-12-31 02:58 | PTCARENOTE ---
Pt complaining of severe rectal pain after multiple liquid bowel movements. Pt incontinent of both bowel and bladder. Begging for Imodium. MORTAR CARRIER aware. Orders placed, see MAR. ABD X-Ray obtained at the bedside. C.diff specimen sent to the lab. Call
hunter is within reach.
--- NOTE | 2024-12-31 03:12 | W.PN.UPDATE ---
Update Note
Progress Note Update
pt c/o diarrhea and burning rectum. Crying when she is wiped. She is begging for Imodium for diarrhea. Last abd xray demonstrated stool in rectum. Repeat abd xray ordered. Still with fecal material i rectum (official report pending. No abd pains.
medication ordered for rectal discomfort. Pt does have hx of cdiff in october--> will recheck. But diarrhea is likely overflow from fecal impaction. Will not order imodium. Needs enema but pt will refuse.
[2024-12-31] MEDS: TYLENOL 650 MG PO (05:30)
[2024-12-31] MEDS: SYNTHROID 100 MCG PO (05:30)
[2024-12-31] MEDS: PREPARATION H MAX STRENGTH PAIN RELIEF CREAM 1 APPLIC RECTAL (05:30)
--- NOTE | 2024-12-31 08:36 | PTCARENOTE ---
Oral temp of 94.1. Refusing to allow nursing to check rectal temp. Hospitalist made aware. Provided patient with warm blankets. Plan of care ongoing.
--- NOTE | 2024-12-31 08:39 | W.PN.CD ---
Today's Communication / Plan
-
Still with edema, thighs IV lasix stopped rising creatinine and there was plan for oral diuretic. will await AM lab results. if creatinine stable then start torsemdie. 20mg ( torsemideon hold until labs available)
monitor orthostatics
Impression / Plan
-
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 Cardiology consulted for CHF.
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
Tohyu-hp-rvdtwrm HFpEF:
-improved s/p IV lasix
-weight up, LE edema noted, BNP is up and CXR suggestive CHF: weight was as low as 55kg last month
-Echo 11/11/24: LV ejection fraction is 65-70%. Wall motion is consistent with conduction abnormality. Enlarged right ventricular size. Mildly reduced right ventricular systolic function. Severely dilated left atrium. Severely dilated left atrium.
Aortic sclerosis without stenosis. Mild to moderate tricuspid regurgitation. Estimated pulmonary artery pressure of 55-60 mmHg.
-op Lasix 20 mg daily
-no SGLT2I with current urinary issues. No MRA for borderline BPs
-Still with edema, thighs IV lasix stopped rising creatinine and there was plan for oral diuretic. will await AM lab results. if creatinine stable then start torsemdie. 20mg
Right pleural effusion
-s/p thora 8.25 for 1200cc
Bradycardia s/p PPM:
-stable
Parox AFib:
-intermittent runs of flutter vs SVT on telemetry
-on Eliquis for DVT's, of note was not previously on Eliquis for AFIB due to falls
DVT's:
-on Eliquis
Orthostatic hypotension:
-on midodrine
-monitor for symptoms with diuresis
Physical Exam
Vital Signs/Labs
Vital Signs
Temp Pulse Resp BP Pulse Ox
94.1 F L 61 12 95/46 96
12/31/24 08:35 12/31/24 07:00 12/31/24 07:00 12/31/24 07:00 12/31/24 07:00
12/30/24 12/31/24 01/01/25
06:59 06:59 06:59
Actual Weight 58.287 kg 58.258 kg
Magnesium 1.9 mg/dl (1.6-2.3) 12/30/24 08:25
12/25/24
23:52
Csq-Q-Zfwzwghjuow Pept 3850
Physical Exam
Constitutional: No acute distress
Cardiovascular: Rhythm & rate is regular
Respiratory: Wheeze Absent and Rhonchi Absent
GI: Soft and Non tender
Neuro/Psych: Alert
Data Reviewed
-
Date of Service: December 31, 2024
Medical Decision Making: Reviewed Test Results
X-Ray/CT/US/MRI/NUC/PET: Report Reviewed by me
Medical Tests (PFT, Pathology etc): Report Reviewed by me
Labs: Labs Reviewed by me
[2024-12-31] MEDS: DELTASONE 2.5 MG PO (09:36)
[2024-12-31] MEDS: DEMADEX PO (09:37)
[2024-12-31] MEDS: MUCINEX 600 MG PO ×2 (09:37→20:03)
[2024-12-31] MEDS: PROTONIX 20 MG PO (09:37)
[2024-12-31] MEDS: ELIQUIS 2.5 MG PO ×2 (09:37→20:03)
[2024-12-31 10:02] LABS: Hematocrit 38.5 % (37.0-47.0); Hemoglobin 12.7 g/dL (12.0-16.0); Mean Corp Hgb Conc. 33.0 g/dL (33.0-37.0); Mean Corpuscular Volume 88.1 fL (81.0-99.0); Nucleated Red Blood Cells % 0 %; Platelet Count 206 10^3/uL (130-400); Red Cell Dist. Width 14.9 % (11.5-14.5)
[2024-12-31 10:50] LABS: Blood Urea Nitrogen 56 mg/dl (7-17); Calcium 8.0 mg/dl (8.4-10.2); Carbon Dioxide 25 mmol/L (22-30); Chloride 104 mmol/L (98-107); Estimated Creatinine Clearance 19 ml/min; Glucose 89 mg/dl (70-99); Magnesium 1.8 mg/dl (1.6-2.3); Potassium 4.3 mmol/L (3.5-5.1); Sodium 135 mmol/L (135-145); eGFR 30.83
[2024-12-31] MEDS: FIRVANQ 125 MG PO ×3 (11:56→23:21)
--- NOTE | 2024-12-31 13:05 | CM ---
TC from [facility] they are current with patient.
--- NOTE | 2024-12-31 13:26 | W.PN.HOSP.TC ---
Today's Communication/Plan
-
Assessment / Plan
Assessment / Plan
General: No Apparent Distress, comfortable, conversant
HEENT: NormoCephalic, Moist mucous membranes, Atraumatic
Respiratory: Clear and Non Labored Respirations
Cardiac: S1/S2 and Regular Rhythm; No Rub or Gallop
GI: Soft, Non Tender, Non Distended and Normal Bowel Sounds
Musculoskeletal: Significant bilateral lower extremity edema, no deformity
: NO Gordon
Neuro: Awake, Alert, Nonfocal/grossly intact
Psych: Calm and cooperative
Impression:
Patient is an 89y F with PMH significant for A-Fib, CKD and PMR who presents to ED from local [place] for evaluation of dysuria and hypoxemia. History obtained from patient and [place] record / reports. Patient complains primarily of burning on
urination. She denies any burning independent of urination. No flank pain or abdominal pain. Note that she has been on Pyridium PRN dysuria since the end of November per [place] JUL.
The evening of admission, patient was noted to be hypoxemic with SpO2 measured 80-85%. She is not chronically on O2. She was sent to the ED for further evaluation and treatment.
Patient denies any chest pain or dyspnea.
She denies any other current complaints.
Admitted and treated for acute diastolic CHF exacerbation.
Seen by cardiology
Started on IV Lasix
12/28
Patient was complaining of shortness of breath which improved and chest pain/epigastric pain which now improved.
X-ray abdomen shows large amount of fecal material in the rectum.
Troponin negative.
X-ray shows moderate size right sided pleural effusion, IR consulted
Assessment/plan:
C. difficile colitis:
- Started oral vancomycin which we will continue for 10 days
- Supportive care
- Holding further diuretic for now, gentle IV fluids if needed considering originally treating her for acute on chronic heart failure
Acute on chronic diastolic CHF with Acute Hypoxemic respiratory Failure secondary CHF
- Bilateral Pleural Effusions - likely secondary to CHF
- Patient presented with shortness of breath.
- Had been planning to transition to oral Lasix today however developed copious diarrhea which tested positive for C. difficile, diuresis for now
- Appreciate cardiology guidance, arranging outpatient follow-up
- Status post right thoracentesis with IR 12/29 with 1.2 L removed, patient is breathing much more comfortably today and saturating appropriately on room air
Constipation with overflow diarrhea
CT abdomen and again abdominal x-ray shows large fecal material in the rectum but patient has frequent bowel movement.
Possible around the fecal material
Will order suppository to be used if needed
Dysuria
- Unclear etiology. UA with RBCs but no nitrates, WBCs, etc.
- Does not appear c/w acute infection despite reported symptoms.
- Not currently treating for UTI
- chronic complaint with Pyridium noted on JUL since November.
- Consider trial of gabapentin, amitriptyline, etc for symptom control.
Paroxysmal Atrial Fibrillation
s/p PPM Placement
- Stable. Continue Eliquis for stroke risk reduction.
CKD III
- Stable. SCr with range from 1.1 - 1.6 over the past several hospital stays, currently within normal range at 1.6 on labs today.
- Monitor for any changes with diuresis.
Orthostatic Hypotension
- Continue midodrine as noted above.
Polymyalgia Rheumatica
- Stable on chronic prednisone. Continue current dose for now.
CODE STATUS: Full code
DVT prophylaxis: Eliquis
Diet: Regular diet
Disposition: Continue IV Lasix.
IR consult for thoracentesis
Total time spent on today's encounter was 54 minutes which included time spent in counseling the patient/family regarding diagnosis and treatment plan as listed above, goals of care, and symptom management. Case was discussed with nursing staff,
specialists, and care coordinators/case management. All labs and imaging personally reviewed by me. Remainder the time spent in detailed review of previous records, lab data, imaging, and other medical provider documentation.
Anticipated Discharge: > 48 hours
Subjective/Interval History
-
Date of Service: December 31, 2024
Patient was seen and examined at bedside this morning. Developed profuse watery diarrhea overnight which tested positive for C. difficile. She has been started on oral vancomycin.
Objective Data
-
Labs:
Laboratory Results
12/31/24
09:49
WBC 5.1
Hgb 12.7
Hct 38.5
Plt Count 206
Sodium 135
Potassium 4.3
Chloride 104
Carbon Dioxide 25
BUN 56 H
Creatinine 1.6 H
Glucose 89
Calcium 8.0 L
Vital Signs:
Vital Signs
Temp Pulse Resp BP Pulse Ox
97.5 F 60 16 111/54 95
12/31/24 11:50 12/31/24 11:50 12/31/24 11:50 12/31/24 11:50 12/31/24 11:50
I&O
12/30/24 12/31/24 01/01/25
06:59 06:59 06:59
Intake Total 240 / 240 300 / 300
Balance 240 / 240 300 / 300
Review of Systems
-
History Source: Patient
All other systems: Reviewed and negative
Abdomen/GI: Reports Diarrhea
Physical Exam
-
General: No Apparent Distress
--- NOTE | 2024-12-31 21:20 | PTCARENOTE ---
Received patient as a transfer from . [facility]. Call hunter in reach.
--- NOTE | 2024-12-31 21:33 | TRANSFER ---
Verbal report given to [address] RN. Patient transported with all belongings.
[2025-01-01 02:35] VITALS: BMI 23.5
[2025-01-01 02:36] VITALS: BP 102/54
[2025-01-01] MEDS: BENADRYL 12.5 MG IV (04:07)
[2025-01-01] MEDS: SYNTHROID 100 MCG PO (05:42)
[2025-01-01] MEDS: FIRVANQ 125 MG PO ×3 (05:42→17:24)
[2025-01-01] MEDS: VISBIOME 1 CAP PO (07:45)
[2025-01-01] MEDS: PROTONIX 20 MG PO (07:45)
[2025-01-01] MEDS: MUCINEX 600 MG PO ×2 (07:45→20:16)
[2025-01-01] MEDS: ELIQUIS 2.5 MG PO ×2 (07:46→20:16)
[2025-01-01] MEDS: DELTASONE 2.5 MG PO (07:46)
--- NOTE | 2025-01-01 08:08 | W.PN.CD ---
Today's Communication / Plan
-
- Will now place on torsemide 20 mg daily, which should be her home regimen.
- No further cardiac recommendations at this time; outpatient follow-up with Cardiology.
Impression / Plan
-
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 Cardiology consulted for CHF.
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
Atbes-kv-uuyvdnt HFpEF:
-improved s/p IV lasix
-weight up, LE edema noted, BNP is up and CXR suggestive CHF: weight was as low as 55kg last month
-Echo 11/11/24: LV ejection fraction is 65-70%. Wall motion is consistent with conduction abnormality. Enlarged right ventricular size. Mildly reduced right ventricular systolic function. Severely dilated left atrium. Severely dilated left atrium.
Aortic sclerosis without stenosis. Mild to moderate tricuspid regurgitation. Estimated pulmonary artery pressure of 55-60 mmHg.
-op Lasix 20 mg daily
-no SGLT2I with current urinary issues. No MRA for borderline BPs
-IV lasix was stopped secondary to rising creatinine.
- Will now place on torsemide 20 mg daily, which should be her home regimen.
- No further cardiac recommendations at this time; outpatient follow-up with Cardiology.
CKD:
- Baseline creatinine has been up to 1.6.
Right pleural effusion
-s/p thora 8.25 for 1200cc
Bradycardia s/p PPM:
-Remains stable
Parox AFib:
-on Eliquis for DVT's, of note was not previously on Eliquis for AFIB due to falls
Constipation/diarrhea:
- Management as per primary team.
DVT's:
-on Eliquis
Orthostatic hypotension:
-on midodrine
Physical Exam
Vital Signs/Labs
Vital Signs
Temp Pulse Resp BP Pulse Ox
97.6 F 61 22 102/54 94
01/01/25 02:36 01/01/25 02:36 01/01/25 02:36 01/01/25 02:36 01/01/25 02:36
12/31/24 01/01/25 01/02/25
06:59 06:59 06:59
Actual Weight 58.258 kg 58.173 kg
12/31/24 09:49
Magnesium 1.8 mg/dl (1.6-2.3) 12/31/24 09:49
12/25/24
23:52
Xtp-G-Ngtfurjeumd Pept 3850
Physical Exam
Constitutional: No acute distress and Comfortable
EENT: Anicteric
Cardiovascular: Rhythm & rate is regular, Systolic murmur absent, Pedal edema present (trace) and S1S2 is normal
Respiratory: Respiratory effort normal and Lungs clear to auscul.
Neuro/Psych: AO x 3
Other: Skin (Warm, dry)
Data Reviewed
-
Date of Service: January 01, 2025
EKG: Tracing Personally Visualized and interpreted (Telemetry: A paced)
Echo: Report Reviewed by me (11/11/2024: EF 65-70%.)
Labs: Labs Reviewed by me
[2025-01-01 08:19] VITALS: BP 115/53
[2025-01-01 08:37] LABS: Blood Urea Nitrogen 60 mg/dl (7-17); Calcium 8.0 mg/dl (8.4-10.2); Carbon Dioxide 25 mmol/L (22-30); Chloride 102 mmol/L (98-107); Estimated Creatinine Clearance 18 ml/min; Glucose 77 mg/dl (70-99); Magnesium 2.0 mg/dl (1.6-2.3); Potassium 4.2 mmol/L (3.5-5.1); Sodium 134 mmol/L (135-145); eGFR 28.67
[2025-01-01 11:46] VITALS: BP 108/54
--- NOTE | 2025-01-01 13:09 | W.PN.HOSP.TC ---
Today's Communication/Plan
-
Assessment / Plan
Assessment / Plan
General: No Apparent Distress, comfortable, conversant
HEENT: NormoCephalic, Moist mucous membranes, Atraumatic
Respiratory: Clear and Non Labored Respirations
Cardiac: S1/S2 and Regular Rhythm; No Rub or Gallop
GI: Soft, Non Tender, Non Distended and Normal Bowel Sounds
Musculoskeletal: Significant bilateral lower extremity edema, no deformity
: NO Gordon
Neuro: Awake, Alert, Nonfocal/grossly intact
Psych: Calm and cooperative
Impression:
Patient is an 89y F with PMH significant for A-Fib, CKD and PMR who presents to ED from local [place] for evaluation of dysuria and hypoxemia. History obtained from patient and [place] record / reports. Patient complains primarily of burning on
urination. She denies any burning independent of urination. No flank pain or abdominal pain. Note that she has been on Pyridium PRN dysuria since the end of November per [place] JUL.
The evening of admission, patient was noted to be hypoxemic with SpO2 measured 80-85%. She is not chronically on O2. She was sent to the ED for further evaluation and treatment.
Patient denies any chest pain or dyspnea.
She denies any other current complaints.
Admitted and treated for acute diastolic CHF exacerbation.
Seen by cardiology
Started on IV Lasix
12/28
Patient was complaining of shortness of breath which improved and chest pain/epigastric pain which now improved.
X-ray abdomen shows large amount of fecal material in the rectum.
Troponin negative.
X-ray shows moderate size right sided pleural effusion, IR consulted
Assessment/plan:
C. difficile colitis:
- Started oral vancomycin which we will continue for 10 days
- Will ask for input from ID considering this is a recurrent issue, at least third episode since September 2024
- Supportive care
- Giving gentle IV fluids considering originally treating her for acute on chronic heart failure
Acute on chronic diastolic CHF with Acute Hypoxemic respiratory Failure secondary CHF
- Bilateral Pleural Effusions - likely secondary to CHF
- Patient presented with shortness of breath.
- Will likely restart diuretic with oral torsemide tomorrow 01/02
- Appreciate cardiology guidance, arranging outpatient follow-up
- Status post right thoracentesis with IR 12/29 with 1.2 L removed, patient is breathing much more comfortably today and saturating appropriately on room air
Dysuria
- Unclear etiology. UA with RBCs but no nitrates, WBCs, etc.
- Does not appear c/w acute infection despite reported symptoms.
- Not currently treating for UTI
- chronic complaint with Pyridium noted on JUL since November.
- Consider trial of gabapentin, amitriptyline, etc for symptom control.
Paroxysmal Atrial Fibrillation
s/p PPM Placement
- Stable. Continue Eliquis for stroke risk reduction.
CKD III
- Stable. SCr with range from 1.1 - 1.6 over the past several hospital stays, currently renal function is slightly above normal with creatinine 1.7 today
- Monitor for any changes with diuresis.
Orthostatic Hypotension
- Continue midodrine as noted above.
Polymyalgia Rheumatica
- Stable on chronic prednisone. Continue current dose for now.
CODE STATUS: Full code
DVT prophylaxis: Eliquis
Diet: Regular diet
Total time spent on today's encounter was 53 minutes which included time spent in counseling the patient/family regarding diagnosis and treatment plan as listed above, goals of care, and symptom management. Case was discussed with nursing staff,
specialists, and care coordinators/case management. All labs and imaging personally reviewed by me. Remainder the time spent in detailed review of previous records, lab data, imaging, and other medical provider documentation.
Anticipated Discharge: 24 - 48 hours
Subjective/Interval History
-
Date of Service: January 01, 2025
Patient was seen and examined at bedside this morning. Continues to have diarrhea. Renal function slightly worse than baseline.
Objective Data
-
Labs:
Laboratory Results
01/01/25
06:51
Sodium 134 L
Potassium 4.2
Chloride 102
Carbon Dioxide 25
BUN 60 H
Creatinine 1.7 H
Glucose 77
Calcium 8.0 L
Vital Signs:
Vital Signs
Temp Pulse Resp BP Pulse Ox
97.5 F 61 16 108/54 98
01/01/25 11:46 01/01/25 11:46 01/01/25 11:46 01/01/25 11:46 01/01/25 11:46
I&O
12/31/24 01/01/25 01/02/25
06:59 06:59 06:59
Intake Total 300 / 300 1560 / 1560
Balance 300 / 300 1560 / 1560
Review of Systems
-
History Source: Patient
All other systems: Reviewed and negative
Abdomen/GI: Reports Diarrhea
Physical Exam
-
General: No Apparent Distress
--- NOTE | 2025-01-01 14:18 | CON.ID ---
Consultation
-
Date/Time Consultation Requested: 01/01/2025 0939
Date/Time Consultation Performed: 01/01/2025 1134
Requesting Provider: Dr. Gilbert
Performing Provider: Dr. Stewart
Reason for Consultation: C. difficile colitis
Chief Complaint / Past History
History of Present Illness
Roberto Millard is an 89-year-old female with a significant past medical history of CAD and atrial fibrillation being evaluated in infectious ease consultation regarding C. difficile colitis. History is obtained from chart review, along with patient
interview. Patient was found to provide little in the way of history, though. The patient was brought to the emergency room on 12/26 for evaluation of dysuria. At that time she reported a 1 day history of dysuria, but further history indicates she
was also having hypoxia at the nursing facility where she resides. At that time she denied any flank pain or abdominal pain. In the ER she received a single dose of ceftriaxone, but no further antibiotics were administered once her urinalysis was
not felt to be consistent with a urinary tract infection.
During her hospital stay she was found to have acute on chronic diastolic CHF. On 12/31, she was noted to have diarrhea, and C. difficile testing has been found to be positive. Of note, she has had prior tests earlier this year positive for
antigen, but toxin negative. Infectious Diseases asked to comment on further antimicrobial therapy.
At this time, she notes ongoing abdominal discomfort and diarrhea. She denies any fevers or chills.
Past History
Additional Past Medical History:
A-fib
CAD; Hx [facility]
HLD
Anxiety
B/L LE DVT
Orthostatic hypotension
Polymyalgia rheumatica
Additional Past Surgical History:
Left hip replacement
Allergy History:
No Known Allergies Allergy (Unverified 10/29/24 17:47)
Medications Reviewed: Yes
Current Antibiotics:
Vancomycin 125 mg p.o. q.6 hours
Social History
Tobacco: Non-Smoker
Alcohol: None
Drug: None
Living: Assisted Living
Employment: Retired
Family History
Family History: Not Pertinent
Review of Systems
Vital Signs
Temp Pulse Resp BP Pulse Ox
97.5 F 61 16 108/54 98
01/01/25 11:46 01/01/25 11:46 01/01/25 11:46 01/01/25 11:46 01/01/25 11:46
Physical Exam
Physical Exam
Constitutional: Comfortable, Chronically Ill, Cachetic and Other (Extremely frail in appearance)
Eyes: Pupils Equal, Pupils Round, No Conjunctival Hemorrhage and Sclera Anicteric
Oral: No Thrush and No Ulcers
Cardiovascular: Regular Rate and S1/S2; Negative S3/S4
Pulmonary: Clear; Negative Wheezes, Rales or Rhonchi
Gastrointestinal: Soft, Tender (Mild; diffuse), Normal Bowel Sounds, No Rebound and No Guarding
Genito-Urinary: Negative Suprapubic Tenderness
Extremities: Negative Edema, Cyanosis or Erythema
Neurological: Awake and Alert
Psychological: Calm
Lab / Diagnostic Study Results
12/31/24 09:49
01/01/25 06:51
Abs Immat Gran (auto) 0.0 10^3/uL (0-0.05) 12/31/24 09:49
Absolute Neuts (auto) 2.3 10^3/uL (1.4-6.5) 12/31/24 09:49
Absolute Lymphs (auto) 2.3 10^3/uL (1.2-3.4) 12/31/24 09:49
Absolute Monos (auto) 0.3 10^3/uL (0.1-0.6) 12/31/24 09:49
Absolute Basos (auto) 0.0 10^3/uL (0-0.2) 12/31/24 09:49
Immature Gran % 0.2 % (0-0.5) 12/31/24 09:49
Neutrophils % 45.6 % (42.2-75.2) 12/31/24 09:49
Lymphocytes % 45.7 % (20.5-51.1) 12/31/24 09:49
Monocytes % 6.7 % (1.7-9.3) 12/31/24 09:49
Eosinophils % 1.0 % (0-6) 12/31/24 09:49
Basophils % 0.8 % (0-2) 12/31/24 09:49
Ur Squamous Epith Cells 3-5 /LPF (Few) 12/25/24 22:18
Microbiology Results
Micro:
12/29/24 16:47 Body Fluid Culture - Final
Pleural Fluid No Growth After 72 Hours
Gram Stain - Final
12/31/24 01:01 C. difficile GDH Antigen & Toxins - Final
Feces/Stool Toxigenic C.difficile Positive
Imaging:
12/30/2024 Flatplate abdomen: there is a nonobstructive bowel gas pattern. There are scattered gas within the colon, including the rectum. No radiographic evidence for fecal impaction. There is a calcified/degenerated fibroid within the pelvis
measuring up to 2 cm. Left hip prosthesis is noted.
Assessment / Plan
C. difficile diarrhea
Acute CHF
Dysuria
- UA not
A-fib
CAD; Hx [facility]
HLD
Anxiety
B/L LE DVT
Orthostatic hypotension
Polymyalgia rheumatica
Recommendations:
Continue with enteral vancomycin to complete a 10 to 14-day course of therapy, depending on clinical improvement.
Follow for improvement in stool consistency and frequency.
Monitor white count and temperature curve.
Monitor abdominal discomfort.
Avoid systemic antibiotics if possible
--- NOTE | 2025-01-01 14:34 | CM ---
Chart reviewed. Patient current w/ C. difficile, started on oral vancomycin which we will continue for 10 days.
CM will cont to follow for d/c planning
[2025-01-01 15:42] VITALS: BP 105/50
[2025-01-01 23:00] VITALS: BP 113/49
[2025-01-02] MEDS: FIRVANQ 125 MG PO ×5 (00:39→23:18)
[2025-01-02] MEDS: ATIVAN 0.5 MG PO ×2 (01:19→15:30)
[2025-01-02] MEDS: SYNTHROID 100 MCG PO (05:58)
[2025-01-02 06:00] VITALS: BMI 23.3
[2025-01-02 07:45] VITALS: BP 96/46
[2025-01-02] MEDS: MUCINEX 600 MG PO ×2 (08:12→20:11)
[2025-01-02] MEDS: DELTASONE 2.5 MG PO (08:12)
[2025-01-02] MEDS: PROTONIX 20 MG PO (08:12)
[2025-01-02] MEDS: ELIQUIS 2.5 MG PO ×2 (08:12→20:11)
[2025-01-02] MEDS: VISBIOME 1 CAP PO (08:12)
[2025-01-02 12:21] LABS: Hematocrit 43.3 % (37.0-47.0); Hemoglobin 14.4 g/dL (12.0-16.0); Mean Corp Hgb Conc. 33.3 g/dL (33.0-37.0); Mean Corpuscular Volume 88.2 fL (81.0-99.0); Nucleated Red Blood Cells % 0 %; Red Cell Dist. Width 14.9 % (11.5-14.5)
--- NOTE | 2025-01-02 14:27 | W.PN.HOSP.TC ---
Today's Communication/Plan
-
Assessment / Plan
Assessment / Plan
General: No Apparent Distress, comfortable, conversant
HEENT: NormoCephalic, Moist mucous membranes, Atraumatic
Respiratory: Clear and Non Labored Respirations
Cardiac: S1/S2 and Regular Rhythm; No Rub or Gallop
GI: Soft, Non Tender, Non Distended and Normal Bowel Sounds
Musculoskeletal: Resolved bilateral lower extremity edema with overlying chronic skin changes, no deformity
: NO Gordon
Neuro: Awake, Alert, Nonfocal/grossly intact
Psych: Calm and cooperative
Impression:
Patient is an 89y F with PMH significant for A-Fib, CKD and PMR who presents to ED from local [place] for evaluation of dysuria and hypoxemia. History obtained from patient and [place] record / reports. Patient complains primarily of burning on
urination. She denies any burning independent of urination. No flank pain or abdominal pain. Note that she has been on Pyridium PRN dysuria since the end of November per [place] JUL.
The evening of admission, patient was noted to be hypoxemic with SpO2 measured 80-85%. She is not chronically on O2. She was sent to the ED for further evaluation and treatment.
Patient denies any chest pain or dyspnea.
She denies any other current complaints.
Admitted and treated for acute diastolic CHF exacerbation.
Seen by cardiology
Started on IV Lasix
12/28
Patient was complaining of shortness of breath which improved and chest pain/epigastric pain which now improved.
X-ray abdomen shows large amount of fecal material in the rectum.
Troponin negative.
X-ray shows moderate size right sided pleural effusion, IR consulted
Assessment/plan:
C. difficile colitis:
- Started oral vancomycin which we will continue for 10-14 days
- ID following
- This is a recurrent issue, at least third episode since September 2024
- Supportive care
- Giving gentle IV fluids considering originally treating her for acute on chronic heart failure
- Probiotic
Acute on chronic diastolic CHF with Acute Hypoxemic respiratory Failure secondary CHF
- Bilateral Pleural Effusions - likely secondary to CHF
- Patient presented with shortness of breath.
- Will likely restart diuretic with oral torsemide tomorrow 01/02
- Appreciate cardiology guidance, arranging outpatient follow-up
- Status post right thoracentesis with IR 12/29 with 1.2 L removed, patient is breathing much more comfortably today and saturating appropriately on room air
Dysuria
- Unclear etiology. UA with RBCs but no nitrates, WBCs, etc.
- Does not appear c/w acute infection despite reported symptoms.
- Not currently treating for UTI
- chronic complaint with Pyridium noted on JUL since November.
- Consider trial of gabapentin, amitriptyline, etc for symptom control.
Paroxysmal Atrial Fibrillation
s/p PPM Placement
- Stable. Continue Eliquis for stroke risk reduction.
CKD III
- Stable. SCr with range from 1.1 - 1.6 over the past several hospital stays, currently renal function is slightly above normal with creatinine 1.7
- Monitor for any changes with diuresis.
Orthostatic Hypotension
- Continue midodrine as noted above.
Polymyalgia Rheumatica
- Stable on chronic prednisone. Continue current dose for now.
CODE STATUS: Full code
DVT prophylaxis: Eliquis
Diet: Regular diet
Total time spent on today's encounter was 55 minutes which included time spent in counseling the patient/family regarding diagnosis and treatment plan as listed above, goals of care, and symptom management. Case was discussed with nursing staff,
specialists, and care coordinators/case management. All labs and imaging personally reviewed by me. Remainder the time spent in detailed review of previous records, lab data, imaging, and other medical provider documentation.
Anticipated Discharge: > 48 hours
Subjective/Interval History
-
Date of Service: January 02, 2025
Patient was seen and examined at bedside this morning. Still having diarrhea, slightly improved. Very little appetite. Clinically appears dry.
Objective Data
-
Labs:
Laboratory Results
01/02/25 01/02/25
11:53 12:42
WBC 4.1 L
Hgb 14.4
Hct 43.3
Plt Count
Sodium Cancelled Pending
Potassium Cancelled Pending
Chloride Cancelled Pending
Carbon Dioxide Cancelled Pending
BUN Cancelled Pending
Creatinine Cancelled Pending
Glucose Cancelled Pending
Calcium Cancelled Pending
Total Bilirubin Cancelled
AST Cancelled
ALT Cancelled
Alkaline Phosphatase Cancelled
Vital Signs:
Vital Signs
Temp Pulse Resp BP Pulse Ox
97.6 F 61 16 96/46 100
01/02/25 07:45 01/02/25 07:45 01/02/25 07:45 01/02/25 07:45 01/02/25 07:45
I&O
01/01/25 01/02/25 01/03/25
06:59 06:59 06:59
Intake Total 1560 / 1560 480 / 480
Balance 1560 / 1560 480 / 480
Review of Systems
-
History Source: Patient
All other systems: Reviewed and negative
Constitutional: Reports No Appetite and Weakness
Abdomen/GI: Reports Diarrhea
Physical Exam
-
General: No Apparent Distress and Appears Chronically Ill
[2025-01-02] MEDS: NSS 500 IV (14:43)
[2025-01-02 15:05] VITALS: BP 116/58
--- NOTE | 2025-01-02 15:06 | W.PN.ID1 ---
Date of Service
Date of Service: January 02, 2025
Today's Communication
Continue enteral vancomycin
Assessment / Plan
C. difficile diarrhea
Acute CHF
Dysuria
- UA not
A-fib
CAD; Hx [place]
HLD
Anxiety
B/L LE DVT
Orthostatic hypotension
Polymyalgia rheumatica
Recommendations:
Continue with enteral vancomycin to complete a 10 to 14-day course of therapy, depending on clinical improvement.
Follow for improvement in stool consistency and frequency.
Monitor white count and temperature curve.
Monitor abdominal discomfort.
Avoid systemic antibiotics if possible
����������������������������������������������������������
Chief Complaint
-: C-diff
Subjective / Review of Systems
Diarrhea persists. No abdominal pain.
Vital Signs / Physical Exam
Vital Signs
Vital Signs
Temp Pulse Resp BP Pulse Ox
97.6 F 61 16 96/46 100
01/02/25 07:45 01/02/25 07:45 01/02/25 07:45 01/02/25 07:45 01/02/25 07:45
Physical Exam
Constitutional: Comfortable, Chronically Ill and Cachetic
Eyes: Sclera Anicteric
Cardiovascular: S1/S2; Negative S3/S4
Pulmonary: Non Labored
Gastrointestinal: Soft, Non Tender, No Rebound and No Guarding
Neurological: Other (Resting comfortably, easily arousable.)
Psychological: Calm
Objective Data
Lab Data
Lab Results
01/02/25 11:53
Estimated Creat Clear Cancelled 01/02/25 11:53
Total Bilirubin Cancelled 01/02/25 12:42
AST Cancelled 01/02/25 12:42
ALT Cancelled 01/02/25 12:42
Alkaline Phosphatase Cancelled 01/02/25 12:42
Most recent labs reviewed.
Micro Results:
12/29/24 16:47 Body Fluid Culture - Final
Pleural Fluid No Growth After 72 Hours
Gram Stain - Final
12/31/24 01:01 C. difficile GDH Antigen & Toxins - Final
Feces/Stool Toxigenic C.difficile Positive
Imaging:
12/30/2024 Flatplate abdomen: there is a nonobstructive bowel gas pattern. There are scattered gas within the colon, including the rectum. No radiographic evidence for fecal impaction. There is a calcified/degenerated fibroid within the pelvis
measuring up to 2 cm. Left hip prosthesis is noted.
[2025-01-02 23:00] VITALS: BP 121/57
[2025-01-02] MEDS: TYLENOL 650 MG PO (23:59)
[2025-01-03] MEDS: FIRVANQ 125 MG PO ×4 (05:26→23:19)
[2025-01-03] MEDS: SYNTHROID 100 MCG PO (05:26)
[2025-01-03 06:00] VITALS: BMI 24.0
[2025-01-03 07:35] VITALS: BP 104/55
[2025-01-03] MEDS: DELTASONE 2.5 MG PO (08:21)
[2025-01-03] MEDS: ELIQUIS 2.5 MG PO ×2 (08:21→21:01)
[2025-01-03] MEDS: VISBIOME 1 CAP PO (08:21)
[2025-01-03] MEDS: PROTONIX 20 MG PO (08:21)
[2025-01-03] MEDS: MUCINEX 600 MG PO ×2 (08:21→21:01)
--- NOTE | 2025-01-03 11:42 | W.PN.HOSP.TC ---
Today's Communication/Plan
-
Assessment / Plan
Assessment / Plan
General: No Apparent Distress, comfortable, conversant
HEENT: NormoCephalic, Moist mucous membranes, Atraumatic
Respiratory: Clear and Non Labored Respirations
Cardiac: S1/S2 and Regular Rhythm; No Rub or Gallop
GI: Soft, Non Tender, Non Distended and Normal Bowel Sounds
Musculoskeletal: Resolved bilateral lower extremity edema with overlying chronic skin changes, no deformity
: NO Gordon
Neuro: Awake, Alert, Nonfocal/grossly intact
Psych: Calm and cooperative
Impression:
Patient is an 89y F with PMH significant for A-Fib, CKD and PMR who presents to ED from local [place] for evaluation of dysuria and hypoxemia. History obtained from patient and [place] record / reports. Patient complains primarily of burning on
urination. She denies any burning independent of urination. No flank pain or abdominal pain. Note that she has been on Pyridium PRN dysuria since the end of November per [place] JUL.
The evening of admission, patient was noted to be hypoxemic with SpO2 measured 80-85%. She is not chronically on O2. She was sent to the ED for further evaluation and treatment.
Patient denies any chest pain or dyspnea.
She denies any other current complaints.
Admitted and treated for acute diastolic CHF exacerbation.
Seen by cardiology
Started on IV Lasix
12/28
Patient was complaining of shortness of breath which improved and chest pain/epigastric pain which now improved.
X-ray abdomen shows large amount of fecal material in the rectum.
Troponin negative.
X-ray shows moderate size right sided pleural effusion, IR consulted
Assessment/plan:
C. difficile colitis:
- Started oral vancomycin on 12/31 which we will continue for 14 days (through 01/13)
- ID following
- This is a recurrent issue, at least third episode since September 2024
- Supportive care
- Can give gentle IV fluids as needed considering originally treating her for acute on chronic heart failure
- Probiotic
Acute on chronic diastolic CHF with Acute Hypoxemic respiratory Failure secondary CHF
- Bilateral Pleural Effusions - likely secondary to CHF
- Patient presented with shortness of breath.
- Will restart diuretic with oral torsemide today 01/02 if renal function comfortable on morning labs
- Appreciate cardiology guidance, arranging outpatient follow-up
- Status post right thoracentesis with IR 12/29 with 1.2 L removed, patient is breathing much more comfortably today and saturating appropriately on room air
Dysuria
- Unclear etiology. UA with RBCs but no nitrates, WBCs, etc.
- Does not appear c/w acute infection despite reported symptoms.
- Not currently treating for UTI
- chronic complaint with Pyridium noted on JUL since November.
- Consider trial of gabapentin, amitriptyline, etc for symptom control.
Paroxysmal Atrial Fibrillation
s/p PPM Placement
- Stable. Continue Eliquis for stroke risk reduction.
CKD III
- Stable. SCr with range from 1.1 - 1.6 over the past several hospital stays, currently renal function is slightly above normal with creatinine 1.7
- Monitor for any changes with diuresis.
Orthostatic Hypotension
- Continue midodrine as noted above.
Polymyalgia Rheumatica
- Stable on chronic prednisone. Continue current dose for now.
CODE STATUS: Full code
DVT prophylaxis: Eliquis
Diet: Regular diet
Total time spent on today's encounter was 52 minutes which included time spent in counseling the patient/family regarding diagnosis and treatment plan as listed above, goals of care, and symptom management. Case was discussed with nursing staff,
specialists, and care coordinators/case management. All labs and imaging personally reviewed by me. Remainder the time spent in detailed review of previous records, lab data, imaging, and other medical provider documentation.
Anticipated Discharge: 24 - 48 hours
Subjective/Interval History
-
Date of Service: January 03, 2025
Patient was seen and examined at bedside this morning. Abdominal discomfort and diarrhea proving with oral vancomycin. Appetite has returned, tolerating breakfast.
Objective Data
-
Labs:
Laboratory Results
01/03/25
09:00
WBC Pending
Hgb Pending
Hct Pending
Plt Count Pending
Sodium Pending
Potassium Pending
Chloride Pending
Carbon Dioxide Pending
BUN Pending
Creatinine Pending
Glucose Pending
Calcium Pending
Vital Signs:
Vital Signs
Temp Pulse Resp BP Pulse Ox
97.6 F 61 16 104/55 97
01/03/25 07:35 01/03/25 07:35 01/03/25 07:35 01/03/25 08:21 01/03/25 07:35
I&O
01/02/25 01/03/25 01/04/25
06:59 06:59 06:59
Intake Total 480 / 480 720 / 720
Balance 480 / 480 720 / 720
Review of Systems
-
History Source: Patient
All other systems: Reviewed and negative
Physical Exam
-
General: No Apparent Distress
[2025-01-03 15:23] VITALS: BP 112/63
[2025-01-03] MEDS: ATIVAN 0.5 MG PO (21:01)
[2025-01-03 23:26] VITALS: BP 111/57
[2025-01-04] MEDS: BENADRYL 12.5 MG IV (01:10)
[2025-01-04] MEDS: PREPARATION H MAX STRENGTH PAIN RELIEF CREAM 1 APPLIC RECTAL (01:50)
[2025-01-04 06:00] VITALS: BMI 23.8
[2025-01-04] MEDS: SYNTHROID 100 MCG PO (06:27)
[2025-01-04] MEDS: FIRVANQ 125 MG PO ×4 (06:27→23:27)
[2025-01-04 07:00] VITALS: BP 112/57
[2025-01-04] MEDS: ELIQUIS 2.5 MG PO ×2 (08:19→19:40)
[2025-01-04] MEDS: DELTASONE 2.5 MG PO (08:19)
[2025-01-04] MEDS: PROTONIX 20 MG PO (08:19)
[2025-01-04] MEDS: MUCINEX 600 MG PO ×2 (08:19→19:40)
[2025-01-04] MEDS: VISBIOME 1 CAP PO (08:19)
[2025-01-04 10:37] LABS: Hematocrit 39.1 % (37.0-47.0); Hemoglobin 13.2 g/dL (12.0-16.0); Mean Corp Hgb Conc. 33.8 g/dL (33.0-37.0); Mean Corpuscular Volume 86.1 fL (81.0-99.0); Nucleated Red Blood Cells % 0 %; Platelet Count 166 10^3/uL (130-400); Red Cell Dist. Width 14.8 % (11.5-14.5)
[2025-01-04 11:10] LABS: Blood Urea Nitrogen 46 mg/dl (7-17); Calcium 7.9 mg/dl (8.4-10.2); Carbon Dioxide 20 mmol/L (22-30); Chloride 106 mmol/L (98-107); Estimated Creatinine Clearance 26 ml/min; Glucose 91 mg/dl (70-99); Magnesium 2.2 mg/dl (1.6-2.3); Potassium 4.7 mmol/L (3.5-5.1); Sodium 135 mmol/L (135-145); eGFR 43.54
--- NOTE | 2025-01-04 12:51 | CM ---
CM reviewed chart, patient resides at [facility]. Patient will require PT/OT evaluations prior to returning to facility to confirm patient is at baseline. CM will continue to follow for all discharge planing needs.
Plan; return to [facility] [place] with [facility], watch for therapy recommendations
--- NOTE | 2025-01-04 15:39 | W.PN.HOSP.TC ---
Today's Communication/Plan
-
Assessment / Plan
Assessment / Plan
General: No Apparent Distress, comfortable, conversant
HEENT: NormoCephalic, Moist mucous membranes, Atraumatic
Respiratory: Clear and Non Labored Respirations
Cardiac: S1/S2 and Regular Rhythm; No Rub or Gallop
GI: Soft, Non Tender, Non Distended and Normal Bowel Sounds
Musculoskeletal: Resolved bilateral lower extremity edema with overlying chronic skin changes, no deformity
: NO Gordon
Neuro: Awake, Alert, Nonfocal/grossly intact
Psych: Calm and cooperative
Impression:
Patient is an 89y F with PMH significant for A-Fib, CKD and PMR who presents to ED from local [facility] for evaluation of dysuria and hypoxemia. History obtained from patient and [facility] record / reports. Patient complains primarily of burning on
urination. She denies any burning independent of urination. No flank pain or abdominal pain. Note that she has been on Pyridium PRN dysuria since the end of November per [facility] JUL.
The evening of admission, patient was noted to be hypoxemic with SpO2 measured 80-85%. She is not chronically on O2. She was sent to the ED for further evaluation and treatment.
Patient denies any chest pain or dyspnea.
She denies any other current complaints.
Admitted and treated for acute diastolic CHF exacerbation.
Seen by cardiology
Started on IV Lasix
12/28
Patient was complaining of shortness of breath which improved and chest pain/epigastric pain which now improved.
X-ray abdomen shows large amount of fecal material in the rectum.
Troponin negative.
X-ray shows moderate size right sided pleural effusion, IR consulted
Assessment/plan:
C. difficile colitis:
- Started oral vancomycin on 12/31 which we will continue for 14 days (through 01/13)
- ID following
- This is a recurrent issue, at least third episode since September 2024
- Supportive care
- Can give gentle IV fluids as needed considering originally treating her for acute on chronic heart failure
- Probiotic
- Diarrhea has significantly improved, now having soft stools
- Medically stable for discharge to her living facility, pending PT/OT evaluation, case management following
Acute on chronic diastolic CHF with Acute Hypoxemic respiratory Failure secondary CHF
- Bilateral Pleural Effusions - likely secondary to CHF
- Patient presented with shortness of breath.
- Will restart diuretic with oral torsemide now that renal function has stabilized
- Appreciate cardiology guidance, arranging outpatient follow-up
- Status post right thoracentesis with IR 12/29 with 1.2 L removed, patient is breathing much more comfortably today and saturating appropriately on room air
Dysuria
- Unclear etiology. UA with RBCs but no nitrates, WBCs, etc.
- Does not appear c/w acute infection despite reported symptoms.
- Not currently treating for UTI
- chronic complaint with Pyridium noted on JUL since November.
- Consider trial of gabapentin, amitriptyline, etc for symptom control.
Paroxysmal Atrial Fibrillation
s/p PPM Placement
- Stable. Continue Eliquis for stroke risk reduction.
CKD III
- Stable.
- SCr with range from 1.1 - 1.6 over the past several hospital stays
- Currently creatinine 1.2
Orthostatic Hypotension
- Continue midodrine as noted above.
Polymyalgia Rheumatica
- Stable on chronic prednisone. Continue current dose for now.
CODE STATUS: Full code
DVT prophylaxis: Eliquis
Diet: Regular diet
Total time spent on today's encounter was 56 minutes which included time spent in counseling the patient/family regarding diagnosis and treatment plan as listed above, goals of care, and symptom management. Case was discussed with nursing staff,
specialists, and care coordinators/case management. All labs and imaging personally reviewed by me. Remainder the time spent in detailed review of previous records, lab data, imaging, and other medical provider documentation.
Anticipated Discharge: 24 - 48 hours
Subjective/Interval History
-
Date of Service: January 04, 2025
Patient was seen and examined at bedside this morning. Anxious for hospital discharge. Diarrhea improving, now with soft stools. Blood pressure and renal function stable.
Objective Data
-
Labs:
Laboratory Results
01/04/25
10:30
WBC 5.2
Hgb 13.2
Hct 39.1
Plt Count 166
Sodium 135
Potassium 4.7
Chloride 106
Carbon Dioxide 20 L
BUN 46 H
Creatinine 1.2 H
Glucose 91
Calcium 7.9 L
Vital Signs:
Vital Signs
Temp Pulse Resp BP Pulse Ox
97.2 F 61 16 112/57 94
01/04/25 07:00 01/04/25 08:19 01/04/25 07:00 01/04/25 08:19 01/04/25 07:00
I&O
01/03/25 01/04/25 01/05/25
06:59 06:59 06:59
Intake Total 720 / 720 150 / 150
Balance 720 / 720 150 / 150
Review of Systems
-
History Source: Patient
All other systems: Reviewed and negative
Physical Exam
-
General: No Apparent Distress
[2025-01-04 16:00] VITALS: BP 116/58
[2025-01-04 23:00] VITALS: BP 103/55
[2025-01-05 04:46] VITALS: BMI 23.7
[2025-01-05] MEDS: FIRVANQ 125 MG PO ×4 (05:19→23:10)
[2025-01-05] MEDS: SYNTHROID 100 MCG PO (05:19)
[2025-01-05 07:00] VITALS: BP 107/57
--- NOTE | 2025-01-05 09:22 | W.PN.HOSP.TC ---
Today's Communication/Plan
-
Continue diuretics
Check labs
PT/OT
Discharge planning
Assessment / Plan
Assessment / Plan
Gen-AAOx3, NAD
HEENT-NC, AT, anicteric, clear oral mm
Neck-supple
CV-reg, no M, +S1/S2
Lungs-clear B/L
Abd-soft, NT, ND
Ext-no edema
Musculoskeletal-no cyanosis, clubbing
Skin-warm and dry
Neuro-grossly non-focal
Psych-calm, cooperative
C. difficile colitis:
- Started oral vancomycin on 12/31 which we will continue for 14 days (through 01/13)
- ID following
- This is a recurrent issue, at least third episode since September 2024
- Supportive care
- Can give gentle IV fluids as needed considering originally treating her for acute on chronic heart failure
- Probiotic
- Diarrhea has significantly improved, now having soft stools
- Medically stable for discharge to her living facility, pending PT/OT evaluation, case management following
Acute on chronic diastolic CHF with Acute Hypoxemic respiratory Failure secondary CHF
- Bilateral Pleural Effusions - likely secondary to CHF
- Patient presented with shortness of breath.
- Will restart diuretic with oral torsemide now that renal function has stabilized
- Appreciate cardiology guidance, arranging outpatient follow-up
- Status post right thoracentesis with IR 12/29 with 1.2 L removed, patient is breathing much more comfortably today and saturating appropriately on room air
Dysuria
- Unclear etiology. UA with RBCs but no nitrates, WBCs, etc.
- Does not appear c/w acute infection despite reported symptoms.
- Not currently treating for UTI
- chronic complaint with Pyridium noted on JUL since November.
- Consider trial of gabapentin, amitriptyline, etc for symptom control.
Paroxysmal Atrial Fibrillation
s/p PPM Placement
- Stable. Continue Eliquis for stroke risk reduction.
CKD 3a
- Stable.
- SCr with range from 1.1 - 1.6 over the past several hospital stays
- Currently creatinine 1.2
Orthostatic Hypotension
- Continue midodrine as noted above.
Polymyalgia Rheumatica
- Stable on chronic prednisone. Continue current dose for now.
CODE STATUS: Full code
DVT prophylaxis: Eliquis
Diet: Regular diet
Dispo -she is from [facility]. Awaiting PT/OT input. Medically stable for discharge.
Anticipated Discharge: Within 24 hours
Subjective/Interval History
-
Date of Service: January 05, 2025
Patient seen and examined. No complaints. Denies diarrhea.
Objective Data
-
Labs:
Laboratory Results
01/05/25
09:12
Sodium Pending
Potassium Pending
Chloride Pending
Carbon Dioxide Pending
BUN Pending
Creatinine Pending
Glucose Pending
Calcium Pending
Total Bilirubin Pending
AST Pending
ALT Pending
Alkaline Phosphatase Pending
Vital Signs:
Vital Signs
Temp Pulse Resp BP Pulse Ox
96.9 F L 61 20 107/57 100
01/05/25 07:00 01/05/25 07:00 01/05/25 07:00 01/05/25 07:00 01/05/25 07:00
I&O
01/04/25 01/05/25 01/06/25
06:59 06:59 06:59
Intake Total 150 / 150
Balance 150 / 150
Review of Systems
-
History Source: Patient
All other systems: Reviewed and negative
[2025-01-05] MEDS: DEMADEX 20 MG PO (09:32)
[2025-01-05] MEDS: MUCINEX 600 MG PO ×2 (09:32→20:10)
[2025-01-05] MEDS: ELIQUIS 2.5 MG PO ×2 (09:32→20:10)
[2025-01-05] MEDS: VISBIOME 1 CAP PO (09:32)
[2025-01-05] MEDS: DELTASONE 2.5 MG PO (09:32)
[2025-01-05] MEDS: PROTONIX 20 MG PO (09:32)
[2025-01-05 11:36] LABS: ALT (SGPT) < 10 U/L (0-35); AST (SGOT) 11 U/L (14-36); Albumin 3.5 g/dl (3.5-5.0); Alkaline Phosphatase 51 U/L (38-126); Blood Urea Nitrogen 45 mg/dl (7-17); Calcium 8.0 mg/dl (8.4-10.2); Carbon Dioxide 24 mmol/L (22-30); Chloride 104 mmol/L (98-107); Estimated Creatinine Clearance 24 ml/min; Glucose 86 mg/dl (70-99); Potassium 4.8 mmol/L (3.5-5.1); Sodium 134 mmol/L (135-145); Total Protein 6.4 g/dl (6.3-8.2); eGFR 39.55
[2025-01-05 12:42] VITALS: BP 116/55; PULSE 59; O2SAT 97
[2025-01-05 12:43] VITALS: BP 116/55; PULSE 59; O2SAT 97
[2025-01-05 15:00] VITALS: BP 111/52
[2025-01-05 23:00] VITALS: BP 115/64
[2025-01-06] MEDS: TYLENOL 650 MG PO ×2 (01:15→23:24)
[2025-01-06] MEDS: ATIVAN 0.5 MG PO ×2 (01:15→23:24)
[2025-01-06] MEDS: FIRVANQ 125 MG PO ×4 (05:00→23:24)
[2025-01-06] MEDS: SYNTHROID 100 MCG PO (05:00)
[2025-01-06] MEDS: PREPARATION H MAX STRENGTH PAIN RELIEF CREAM 1 APPLIC RECTAL (05:01)
[2025-01-06 05:26] VITALS: BMI 23.3
[2025-01-06 07:00] VITALS: BP 119/60
[2025-01-06] MEDS: DELTASONE 2.5 MG PO (09:13)
[2025-01-06] MEDS: VISBIOME 1 CAP PO (09:13)
[2025-01-06] MEDS: MUCINEX 600 MG PO ×2 (09:13→19:37)
[2025-01-06] MEDS: ELIQUIS 2.5 MG PO ×2 (09:14→19:37)
[2025-01-06] MEDS: DEMADEX 20 MG PO (09:14)
[2025-01-06] MEDS: PROTONIX 20 MG PO (09:14)
--- NOTE | 2025-01-06 09:57 | W.PN.HOSP.TC ---
Today's Communication/Plan
-
Discharge planning
Assessment / Plan
Assessment / Plan
Gen-AAOx3, NAD
HEENT-NC, AT, anicteric, clear oral mm
Neck-supple
CV-reg, no M, +S1/S2
Lungs-clear B/L
Abd-soft, NT, ND
Ext-no edema
Musculoskeletal-no cyanosis, clubbing
Skin-warm and dry
Neuro-grossly non-focal
Psych-calm, cooperative
C. difficile colitis: Clinically improved.
- Started oral vancomycin on 12/31 which we will continue for 14 days (through 01/13)
- ID following
- This is a recurrent issue, at least third episode since September 2024
- Supportive care
- Can give gentle IV fluids as needed considering originally treating her for acute on chronic heart failure
- Probiotic
- Diarrhea has significantly improved, now having soft stools
- Medically stable for discharge to her living facility, pending PT/OT evaluation, case management following
Acute on chronic diastolic CHF with Acute Hypoxemic respiratory Failure secondary CHF
- Bilateral Pleural Effusions - likely secondary to CHF
- Patient presented with shortness of breath.
- Will restart diuretic with oral torsemide now that renal function has stabilized
- Appreciate cardiology guidance, arranging outpatient follow-up
- Status post right thoracentesis with IR 12/29 with 1.2 L removed, patient is breathing much more comfortably today and saturating appropriately on room air
Dysuria
- Unclear etiology. UA with RBCs but no nitrates, WBCs, etc.
- Does not appear c/w acute infection despite reported symptoms.
- Not currently treating for UTI
- chronic complaint with Pyridium noted on JUL since November.
- Consider trial of gabapentin, amitriptyline, etc for symptom control.
Paroxysmal Atrial Fibrillation
s/p PPM Placement
- Stable. Continue Eliquis for stroke risk reduction.
CKD 3a
- Stable. Labs pending for today.
Orthostatic Hypotension
- Continue midodrine as noted above.
Polymyalgia Rheumatica
- Stable on chronic prednisone. Continue current dose for now.
CODE STATUS: Full code
DVT prophylaxis: Eliquis
Diet: Regular diet
Dispo -she is from [facility] assisted [facility]. Awaiting PT/OT input. Medically stable for discharge. Updated case management.
Anticipated Discharge: Today
Subjective/Interval History
-
Date of Service: January 06, 2025
Patient seen and examined. Complaining of insomnia.
Objective Data
-
Labs:
Laboratory Results
01/06/25
06:00
Sodium Pending
Potassium Pending
Chloride Pending
Carbon Dioxide Pending
BUN Pending
Creatinine Pending
Glucose Pending
Calcium Pending
Total Bilirubin Pending
AST Pending
ALT Pending
Alkaline Phosphatase Pending
Vital Signs:
Vital Signs
Temp Pulse Resp BP Pulse Ox
98.0 F 61 18 119/60 99
01/06/25 07:00 01/06/25 09:14 01/06/25 07:00 01/06/25 09:14 01/06/25 07:00
I&O
01/05/25 01/06/25 01/07/25
06:59 06:59 06:59
Intake Total 240 / 240
Balance 240 / 240
Review of Systems
-
History Source: Patient
All other systems: Reviewed and negative
[2025-01-06 11:27] LABS: ALT (SGPT) < 10 U/L (0-35); AST (SGOT) 10 U/L (14-36); Albumin 3.5 g/dl (3.5-5.0); Alkaline Phosphatase 50 U/L (38-126); Blood Urea Nitrogen 50 mg/dl (7-17); Calcium 7.9 mg/dl (8.4-10.2); Carbon Dioxide 22 mmol/L (22-30); Chloride 104 mmol/L (98-107); Estimated Creatinine Clearance 24 ml/min; Glucose 119 mg/dl (70-99); Potassium 4.7 mmol/L (3.5-5.1); Sodium 134 mmol/L (135-145); Total Protein 6.3 g/dl (6.3-8.2); eGFR 39.55
--- NOTE | 2025-01-06 12:12 | CM ---
Addendum entered by Manolo Lozano 01/06/25 13:55:
Received call from [facility], can accept patient back tomorrow morning. Patient likely can transport via ambulance
Updated hospitalist
[facility]
Report: [phone]---> Kayleigh/ANATOLY

Plan: D/c to [facility] tomorrow
Addendum entered by Manolo Lozano 01/06/25 12:28:
Per hospitalist, both patient and daughter would like to avoid SNF and return to [facility] w/ PT if possible. They do not want to commit to hospice at this time.
CM spoke w/ ANATOLY at [facility], shared that patient and daughter would like for her to return and that hospice is not being explored. Per ANATOLY, will review clinicals w/ Petra that CM faxed and will give CM a call on how they would like to move
forward
Original Note:
Per hospitalist, patient is medically stable for d/c. Patient is a resident at [facility] assisted living. Patient currently w/ C diff, clinically improved. Cont w/ oral abx
CM reviewed chart, therapy rec SNF, patient not at baseline at this time. Spoke w/ patient and nurse bedside, patient shared she doesn't want to do rehab as she's been to rehab several times and just wants to return to [facility]. CM shared w/
patient that she is not at her baseline as she is an assist x1 at facility and currently an assist x2, CM shared [facility] may want to patient to go to rehab before returning. Patient continued to refuse. Nurse stated that GOC may benefit patient as
there were some comments that she shared to nurse.
CM called [facility], spoke w/ Petra/nurse to review patient and possible d/c today. CM informed that patient is refusing rehab and that she is not at her baseline per therapy evaluation yesterday. Petra shared concerns that patient is in and
out of the hospital and requesting if hospitalist to discuss GOC. Petra informed CM that patient was on hospice at her last facility prior to admitted to [facility]. Requested CM to fax clinicals to review. CM faxed clinicals to [phone]
Updated hospitalist regarding GOC for patient
Plan: CM will cont to follow for d/c planning. GOC discussion for patient
--- NOTE | 2025-01-06 13:56 | W.PN.ID1 ---
Date of Service
Date of Service: January 06, 2025
Today's Communication
Continue antibiotics. See below�
Assessment / Plan
C. difficile diarrhea
Acute CHF
Dysuria
- UA not
A-fib
CAD; Hx PR
HLD
Anxiety
B/L LE DVT
Orthostatic hypotension
Polymyalgia rheumatica
Recommendations:
Pt reports that diarrhea has resolved.
Continue with enteral vancomycin to complete a 14-day course of therapy.
Thereafter, given several prior occurrences, would proceed with a taper as follows.
7 days vanco 125 mg PO BID then
7 days vanco 125 mg PO daily then
4 weeks vanco 125 mg PO qOther day.
Avoid systemic antibiotics if possible
Little more to offer from a Infectious Disease standpoint.
Will see again at your request.
����������������������������������������������������������
Chief Complaint
-: C-diff
Subjective / Review of Systems
Review of Systems: No Fever, No Chills, No Abdominal Pain and No Diarrhea
Vital Signs / Physical Exam
Vital Signs
Vital Signs
Temp Pulse Resp BP Pulse Ox
98.0 F 61 18 119/60 99
01/06/25 07:00 01/06/25 09:14 01/06/25 07:00 01/06/25 09:14 01/06/25 07:00
Physical Exam
Constitutional: Comfortable, Chronically Ill and Non-toxic
Cardiovascular: S1/S2; Negative S3/S4
Pulmonary: Non Labored
Gastrointestinal: Soft, Non Distended and Normal Bowel Sounds
Neurological: Awake and Alert
Psychological: Calm
Objective Data
Lab Data
Lab Results
01/04/25 10:30
01/06/25 10:41
Estimated Creat Clear 24 ml/min 01/06/25 10:41
Total Bilirubin 0.4 mg/dl (0.2-1.3) 01/06/25 10:41
AST 10 U/L (14-36) L 01/06/25 10:41
ALT < 10 U/L (0-35) 01/06/25 10:41
Alkaline Phosphatase 50 U/L (38-126) 01/06/25 10:41
Most recent labs reviewed.
Micro Results:
12/29/24 16:47 Body Fluid Culture - Final
Pleural Fluid No Growth After 72 Hours
Gram Stain - Final
12/31/24 01:01 C. difficile GDH Antigen & Toxins - Final
Feces/Stool Toxigenic C.difficile Positive
Imaging:
12/30/2024 Flatplate abdomen: there is a nonobstructive bowel gas pattern. There are scattered gas within the colon, including the rectum. No radiographic evidence for fecal impaction. There is a calcified/degenerated fibroid within the pelvis
measuring up to 2 cm. Left hip prosthesis is noted.
[2025-01-06 15:43] VITALS: BP 107/52
[2025-01-06 23:00] VITALS: BP 98/49
[2025-01-07] MEDS: SYNTHROID 100 MCG PO (05:14)
[2025-01-07] MEDS: FIRVANQ 125 MG PO ×2 (05:15→11:50)
[2025-01-07 06:00] VITALS: BMI 23.7
[2025-01-07 07:35] VITALS: BP 108/54
[2025-01-07] MEDS: VISBIOME 1 CAP PO (08:11)
[2025-01-07] MEDS: PROTONIX 20 MG PO (08:11)
[2025-01-07] MEDS: MUCINEX 600 MG PO (08:11)
[2025-01-07] MEDS: DELTASONE 2.5 MG PO (08:11)
[2025-01-07] MEDS: ELIQUIS 2.5 MG PO (08:11)
[2025-01-07] MEDS: DEMADEX 20 MG PO (08:17)
[2025-01-07 09:01] LABS: ALT (SGPT) < 10 U/L (0-35); AST (SGOT) 12 U/L (14-36); Albumin 3.4 g/dl (3.5-5.0); Alkaline Phosphatase 45 U/L (38-126); Blood Urea Nitrogen 57 mg/dl (7-17); Calcium 7.8 mg/dl (8.4-10.2); Carbon Dioxide 23 mmol/L (22-30); Chloride 104 mmol/L (98-107); Estimated Creatinine Clearance 22 ml/min; Glucose 82 mg/dl (70-99); Potassium 4.8 mmol/L (3.5-5.1); Sodium 134 mmol/L (135-145); Total Protein 6.1 g/dl (6.3-8.2); eGFR 36.19
--- NOTE | 2025-01-07 09:40 | W.DS.TRANS ---
DC Summary - [employer]
-
Discharge Instructions:
Discharge Diagnosis/Procedures C. difficile colitis, acute on chronic heart
failure
Diet 2 Gram Sodium,Restrict fluids to 48 oz
Activity As tolerated,With assistance
Driving Restrictions No driving
Bathing Restrictions None
Instructions:
Stand-Alone Forms:
Changes to Home Medications: No
Discharge Medications:
DC Medications w/original date entered in [employer]
acetaminophen 325 mg tablet (Tylenol) 650 mg PO Q6HPRN PRN mild pain 11/09/24
levothyroxine 100 mcg tablet 100 mcg PO DAILY Thyroid 11/09/24
midodrine 5 mg tablet 5 mg PO BID Blood Pressure 11/09/24
ondansetron HCl 4 mg tablet 4 mg PO Q6H PRN nausea/vomiting 11/09/24
prednisone 2.5 mg tablet 2.5 mg PO DAILY inflammation 11/09/24
pantoprazole 20 mg tablet,delayed release 20 mg PO DAILY #30 tabs 11/18/24
apixaban 2.5 mg tablet (Eliquis) 2.5 mg PO BID Blood Clot Prevention/Tx 11/26/24
phenazopyridine 100 mg tablet 100 mg PO TIDPRN PRN dysuria #30 tabs 11/27/24
Lactobac/Bifidobac [Visbiome] 1 cap PO DAILY ##0 01/07/25
bisacodyl 10 mg rectal suppository 10 mg DC DAILYPRN PRN constipation #0 ea 01/07/25
docusate sodium 100 mg capsule 100 mg PO BIDPRN PRN CONSTIPATION #0 caps 01/07/25
lorazepam 0.5 mg tablet 0.5 mg PO Q8HPRN PRN Anxiety #3 tabs 01/07/25
torsemide 20 mg tablet 20 mg PO DAILY #0 tabs 01/07/25
vancomycin 125 mg capsule 125 mg PO QID #60 caps 01/07/25
Home Medication Changes
Pending Results: No
--- NOTE | 2025-01-07 09:53 | W.PN.HOSP.TC ---
Today's Communication/Plan
-
Discharge
Assessment / Plan
Assessment / Plan
Gen-AAOx3, NAD
HEENT-NC, AT, anicteric, clear oral mm
Neck-supple
CV-reg, no M, +S1/S2
Lungs-clear B/L
Abd-soft, NT, ND
Ext-no edema
Musculoskeletal-no cyanosis, clubbing
Skin-warm and dry
Neuro-grossly non-focal
Psych-calm, cooperative
C. difficile colitis: Clinically improved.
- Started oral vancomycin on 12/31 which we will continue for 14 days (through 01/13), then vancomycin taper per infectious disease.
- ID following
- This is a recurrent issue, at least third episode since September 2024
- Supportive care
- Can give gentle IV fluids as needed considering originally treating her for acute on chronic heart failure
- Probiotic
- Diarrhea has significantly improved, now having soft stools
- Medically stable for discharge to her living facility, pending PT/OT evaluation, case management following
Acute on chronic diastolic CHF with Acute Hypoxemic respiratory Failure secondary CHF
- Bilateral Pleural Effusions - likely secondary to CHF
- Patient presented with shortness of breath.
- Will restart diuretic with oral torsemide now that renal function has stabilized
- Appreciate cardiology guidance, arranging outpatient follow-up
- Status post right thoracentesis with IR 12/29 with 1.2 L removed, patient is breathing much more comfortably today and saturating appropriately on room air
Dysuria
- Unclear etiology. UA with RBCs but no nitrates, WBCs, etc.
- Does not appear c/w acute infection despite reported symptoms.
- Not currently treating for UTI
- chronic complaint with Pyridium noted on JUL since November.
- Consider trial of gabapentin, amitriptyline, etc for symptom control.
Paroxysmal Atrial Fibrillation
s/p PPM Placement
- Stable. Continue Eliquis for stroke risk reduction.
CKD 3a
- Stable. Labs pending for today.
Orthostatic Hypotension
- Continue midodrine as noted above.
Polymyalgia Rheumatica
- Stable on chronic prednisone. Continue current dose for now.
CODE STATUS: Full code
DVT prophylaxis: Eliquis
Diet: Regular diet
Dispo -she is from [facility]. Patient and family prefer to go back to assisted living, not interested in SNF.
Medically stable for discharge today. Case management aware.
35 minutes spent in discharge process.
Anticipated Discharge: Today
Subjective/Interval History
-
Date of Service: January 07, 2025
Patient seen and examined. No complaints.
Objective Data
-
Labs:
Laboratory Results
01/07/25
08:09
Sodium 134 L
Potassium 4.8
Chloride 104
Carbon Dioxide 23
BUN 57 H
Creatinine 1.4 H
Glucose 82
Calcium 7.8 L
Total Bilirubin 0.4
AST 12 L
ALT < 10
Alkaline Phosphatase 45
Vital Signs:
Vital Signs
Temp Pulse Resp BP Pulse Ox
97.7 F 61 16 124/55 98
01/07/25 07:35 01/07/25 08:19 01/07/25 07:35 01/07/25 08:19 01/07/25 07:35
I&O
01/06/25 01/07/25 01/08/25
06:59 06:59 06:59
Intake Total 240 / 240 960 / 960
Balance 240 / 240 960 / 960
Review of Systems
-
History Source: Patient
All other systems: Reviewed and negative
--- NOTE | 2025-01-07 10:55 | CM ---
Patient for d/c today
Ambulance transport time is scheduled for 2 pm
Updated patient bedside. IMM verbally reviewed, copy provided, copy on chart
[facility]
Report: [phone]---> Kayleigh/ANATOLY

Plan: Return to [facility] today
--- NOTE | 2025-01-07 13:41 | PTCARENOTE ---
Report called to Kayleigh at [facility]. Patient to be picked up for discharge at 1400.
== END 2025-01-07 15:51 | disposition home or self-care (01) | DRG 291 ==
LOC: 4 WEST ACU 04:06
PROVIDERS: General Practice; Internal Medicine; Nurse Practitioner; Nurse Practitioner Family; Physician Assistant; Radiology Vascular & Interventional Radiology; ADMITTING PHYSICIAN Hospitalist; ATTENDING PHYSICIAN Hospitalist; CONSULT PHYSICIAN Internal Medicine Infectious Disease; EMERGENCY PHYSICIAN Emergency Medicine; FAMILY PHYSICIAN Internal Medicine; OTHER PHYSICIAN Student in an Organized Health Care Education/Training Program
PROC: 0W993ZZ Drainage of Right Pleural Cavity, Percutaneous Approach (ICD-10-PCS; 2024-12-29)
DX: I50.33 Acute on chronic diastolic (congestive) heart failure (principal); J96.01 Acute respiratory failure with hypoxia; A04.72 Enterocolitis due to Clostridium difficile, not specified as recurrent; I48.92 Unspecified atrial flutter; I48.0 Paroxysmal atrial fibrillation; Z95.0 Presence of cardiac pacemaker; I95.1 Orthostatic hypotension; N18.31 Chronic kidney disease, stage 3a; E88.A Wasting disease (syndrome) due to underlying condition; Z68.23 Body mass index [BMI] 23.0-23.9, adult; M35.3 Polymyalgia rheumatica; Z79.52 Long term (current) use of systemic steroids; I25.10 Atherosclerotic heart disease of native coronary artery without angina pectoris; I27.20 Pulmonary hypertension, unspecified; E03.9 Hypothyroidism, unspecified; F41.9 Anxiety disorder, unspecified; Z96.642 Presence of left artificial hip joint; Z83.3 Family history of diabetes mellitus; Z82.49 Family history of ischemic heart disease and other diseases of the circulatory system; E78.00 Pure hypercholesterolemia, unspecified; I25.2 Old myocardial infarction; Z79.01 Long term (current) use of anticoagulants; Z79.82 Long term (current) use of aspirin; Z79.890 Hormone replacement therapy; Z79.899 Other long term (current) drug therapy; Z91.81 History of falling; L89.322 Pressure ulcer of left buttock, stage 2; L89.312 Pressure ulcer of right buttock, stage 2
CPT/HCPCS: 32555; 71045; 71046; 74018; 74022; 74176; 80048; 80053; 81003; 81015; 82150; 82945; 83615; 83735; 83880; 83986; 84100; 84157; 84443; 84484; 85025; 85027; 87015; 87070; 87205; 87324; 87449; 89051; 93005; 96374; 96375; 97163; 97167; 99285